=== PATIENT | male | born 1960 | race Caucasian/White ===

== ENCOUNTER 2024-01-14 13:11 | Outpatient (CLI) | payer MEDICARE, OTHER, SELFPAY ==
[2024-01-14 14:52] LABS: Occult Blood,Stool Negative (Negative)
== END 2024-01-14 23:59 | disposition home or self-care (01) ==
LOC: LAB 13:12
PROVIDERS: PCP Nurse Practitioner Family; Visit Provider Nurse Practitioner Family
DX: K92.1 Melena (principal)
CPT/HCPCS: 82272; G0328

== ENCOUNTER 2024-01-15 12:35 | Outpatient (CLI) | payer MEDICARE, OTHER, SELFPAY ==
[2024-01-15 15:00] LABS: Occult Blood,Stool Negative (Negative)
== END 2024-01-15 23:59 | disposition home or self-care (01) ==
LOC: LAB 12:36
PROVIDERS: PCP Nurse Practitioner Family; Visit Provider Nurse Practitioner Family
DX: K92.1 Melena (principal)
CPT/HCPCS: 82272; G0328

== ENCOUNTER 2024-01-16 12:46 | Outpatient (CLI) | payer MEDICARE, OTHER, SELFPAY ==
[2024-01-16 15:41] LABS: Occult Blood,Stool Negative (Negative)
== END 2024-01-16 23:59 | disposition home or self-care (01) ==
LOC: LAB.DROPOF 12:48
PROVIDERS: PCP Nurse Practitioner Family; Visit Provider Nurse Practitioner Family
DX: K92.1 Melena (principal)
CPT/HCPCS: 82272; G0328

== ENCOUNTER 2024-01-30 08:47 | Outpatient (POV) | payer MEDICARE, OTHER, SELFPAY ==
--- NOTE | 2024-01-30 09:24 | EXP.PAIN.OV ---
HPI Data of Consult Patient: new to practice Consult date: 01/30/24 Requesting Physician: Pippa Hernandez APRN Primary Care Provider: Pippa Pinto APRN Consult Narrative Reason for consult: Right knee pain, bilateral shoulder pain, neck pain, low back pain History of present illness: Mr. Grimes is a 63 year old male who presents today as a new patient. He is a referral from Pippa cruz office. Today he rates his pain a 5 out of 10. Patient states he has pain throughout multiple areas that has been going on for years and progressively worsened. Patient does state that he describes this pain from a aching, throbbing sensation to a burning depending on area. He does state that he previously was seeing a pain management in [place] where they did do imaging as well as injections such as RFA's and that these were helping. Patient states that he has not been to this office for about a year due to the fact that he moved to [place]. Patient does state that he has had multiple surgeries including a left shoulder scope, right knee scope, left knee replacement and bilateral elbow ulnar nerve surgery. Patient does state overall he would say his low back and hip pain with burning into his upper left thigh is what is more problematic currently. He does state this pain interferes with his ability perform activities of daily living such as cooking and cleaning. He states he has tried oral medications along with heat and ice and topicals with minimal relief. Patient was previously prescribed trazodone and gabapentin and he states that the gabapentin did seem to help some. Patient states that he was diagnosed with fibromyalgia and put on Savella which she feels like has helped some but did cause sweating. He has also had a kyphoplasty procedure in the past due to compression fracture. Patient has tried physical therapy and states it did not really seem to do much change overall. He states he noticed better improvement with the physical therapy and times for recovery from surgery. Patient is very active and does at home stretching exercise for longer than 12 weeks with minimal changes. He does state that he also walks daily 2 miles.Patient is not currently on any scheduled medications. His Buck has been reviewed and is appropriate. CC: Pippa Hernandez APRN [facility] Disclaimer: The information contained in this section may have been updated after the patient was seen, as this information can be updated by other users. Medical History (Updated 01/30/24 @ 11:15 by Pippa Hernandez APRN) High cholesterol High glucose Hypertension Cholecystectomy planned Elbow injury Vasectomy planned Broken back Surgical History (Updated 01/07/24 @ 10:56 by Leigh Diaz MA) Total knee replacement status H/O gastric bypass Family History (Updated 01/07/24 @ 10:57 by Leigh Diaz MA) Sister Cancer Father Cancer Grandfather Cancer Mother Hypertension Other Diabetes Thyroid disorder Social History (Updated 01/07/24 @ 10:58 by Leigh Diaz MA) Smoking Status: Former smoker alcohol intake: never substance use type: denies use current occupational status: retired Travel in the last 8 weeks: None Review of Systems Review of Systems Review of systems:: pertinent systems reviewed and negative unless documented below Review of systems (narrative): Review of Systems: General: No recent weight changes, no fever, no sleep disturbances Respiratory: No cough, no shortness of air, no recurring pulmonary infections Cardiovascular/peripheral vascular: No chest pain, no palpitations, no edema, no shortness of breath Gastrointestinal: No new onset incontinence, normal bowel movements reported Genitourinary: No new onset incontinence Musculoskeletal: Neck pain, low back pain, bilateral hip pain, shoulder pain, right knee pain Psychiatric: [Normal mood/affect] Neurological: [Denies weakness in extremities], [denies balance issues] Meds Home Medications and Allergies Home Medications ?Medication ?Instructions ?Recorded ?Confirmed ?Type aspirin 81 mg tablet,delayed 81 mg PO DAILY 01/07/24 01/30/24 History release (Adult Aspirin Regimen) diclofenac sodium 1 % topical gel 1 ea topical DIRECTED 01/07/24 01/30/24 History Arthritis, fybromyalga finasteride 5 mg tablet 5 mg PO DAILY enlarged prostrate 01/07/24 01/30/24 History mecobalamin (vitamin B12) 1,000 1,000 mcg PO DAILY 01/07/24 01/30/24 History mcg chewable tablet (B12 Active) metoprolol succinate 50 mg 50 mg PO DAILY High Blood Pressure 01/07/24 01/30/24 History tablet,extended release 24 hr milnacipran 50 mg tablet (Savella) 50 mg PO BID Fybromyalgia 01/07/24 01/30/24 History pantoprazole 40 mg tablet,delayed 80 mg PO BID Acid Reflux 01/07/24 01/30/24 History release tamsulosin 0.4 mg capsule 0.8 mg PO BID treat enlarged 01/07/24 01/30/24 History prostrate New Prescriptions to Start Prescriptions: Allergies Allergy/AdvReac Type Severity Reaction Status Date / Time No Known Allergies Allergy Verified 01/07/24 10:46 Objective Narrative: Physical Exam: General: Alert and oriented x3, no acute distress, pleasant and cooperative Lungs: Respirations even and unlabored, symmetrical chest expansion Eyes: PERRL Musculoskeletal: Flexion and extension of lumbar [spine] somewhat guarded secondary to pain, [antalgic gait noted] point tenderness along bilateral SIs with positive bilateral Beni's, Adri's, Gaenslen's, compression and distraction exam Neurological: Speech clear, no gross sensory deficit Assessment and Plan *Assessment and plan (1) Neck pain: Status: Acute Category: Medical Code(s): M54.2 - Cervicalgia (2) Cervical radiculopathy: Status: Acute Category: Medical Code(s): M54.12 - Radiculopathy, cervical region (3) Bilateral shoulder pain: Status: Acute Category: Medical Code(s): M25.511 - Pain in right shoulder; M25.512 - Pain in left shoulder (4) Bilateral sacroiliitis: Status: Acute Category: Medical Code(s): M46.1 - Sacroiliitis, not elsewhere classified (5) Right knee pain: Status: Acute Category: Medical Code(s): M25.561 - Pain in right knee Plan Patient is experiencing significant pain throughout his low back and bilateral hips with limited range of motion of his lumbar spine. Patient did have point tenderness along his bilateral SIs and a positive bilateral Beni's, Adri's, Gaenslen's, compression and distraction exam. I did discuss with the patient that I do believe he would benefit from bilateral SI injections. Risk and benefits were discussed with the patient and he would like to proceed forward with this plan of care. Patient has tried and failed conservative therapy including continued at home stretching exercise for longer than 12 weeks. Patient will be scheduled for bilateral SI injections. I did also discuss with the patient that we will start him on pregabalin 50 mg at bedtime and provide a 2-week supply of this medication. Patient was counseled that it has been recommended for fibromyalgia to use pregabalin over gabapentin and often the combination with duloxetine is beneficial. We will follow-up with this at future visits. Patient has been instructed to contact the clinic with any concerns before the next appointment. Dr. Villafuerte has reviewed this note and agrees with this plan of care. This note was dictated using voice recognition software and make contain errors or omissions. All injections are used with Lidocaine or Bupivacaine and Depo Medrol.
[2024-01-30 10:01] VITALS: BP 111/76; PULSE 87; RESP 18; O2SAT 96; BMI 40.6
== END 2024-01-30 23:59 | disposition home or self-care (01) ==
PROVIDERS: PCP Nurse Practitioner Family; Visit Provider Nurse Practitioner Family
DX: M54.2 Cervicalgia (principal); M54.12 Radiculopathy, cervical region; M25.511 Pain in right shoulder; M25.512 Pain in left shoulder; M46.1 Sacroiliitis, not elsewhere classified; M25.561 Pain in right knee; Z73.89 Other problems related to life management difficulty; Z96.652 Presence of left artificial knee joint
CPT/HCPCS: 99202; G0463

== ENCOUNTER 2024-02-26 09:27 | Day surgery (SDC) | payer MEDICARE, OTHER, SELFPAY ==
[2024-02-26 10:02] VITALS: BP 119/76; PULSE 60; RESP 16; O2SAT 97; BMI 41.3
[2024-02-26] MEDS: BUPIVACAINE 0.25% 10ML INJ 25 MG IJ (10:15)
[2024-02-26 10:16] VITALS: BP 125/82; PULSE 90; RESP 18; O2SAT 97
[2024-02-26] MEDS: methylPREDNISolone ACETATE 80MG/ML VIAL 80 MG (10:16)
[2024-02-26] MEDS: LIDOCAINE 1% 5ML PF VIAL 5 ML (10:16)
[2024-02-26 10:17] VITALS: BP 125/82; PULSE 90; RESP 18; O2SAT 97
--- NOTE | 2024-02-26 10:22 | P.PCN_ITS ---
Procedure Date: 02/26/24 Time: 10:10 Anesthesiologist:: Kade Snow CRNA Complications:: None Pre-procedure Diagnosis:: Bilateral sacroiliitis Post-procedure Diagnosis:: Same. Indications for Procedure:: Patient is a very pleasant 63-year-old male who comes our clinic today for bilateral sacroiliac joint injection of cortisone and local anesthetic. Patient describes low lumbar back pain off the midline bilaterally. Bilateral posterior hip pain. Difficulty transitioning from sitting to standing. He rates his pain 8/10. Procedure Details:: Procedure: Bilateral sacroiliac joint injections under fluoroscopy Informed consent was obtained and the risks and benefits of the procedure were explained to the patient.~ The patient was taken to the procedure room and noninvasive monitors were placed including a noninvasive blood pressure cuff and pulse oximeter.~ The patient was placed prone on the procedure table. Both hips were cleansed using Betadine as a cleansing solution. C-arm fluoroscopy was used to view the right sacroiliac joint.~ The skin and subcutaneous tissues were anesthetized using lidocaine 1.5% and a 25-gauge needle.~ After this, a 22-gauge spinal needle was inserted under fluoroscopic guidance into the inferior aspect of the right sacroiliac joint.~ Omnipaque dye was injected and good spread was seen throughout the joint.~ After this, approximately 5 mL of bupivacaine, 0.25% and Depo-Medrol, 40 mg was incrementally injected into the right sacroiliac joint. We then moved to the left sacroiliac joint.~ The skin and subcutaneous tissues were anesthetized using lidocaine 1.5% and a 25-gauge needle.~ After this, a 22- gauge spinal needle was inserted under fluoroscopic guidance into the inferior aspect of the left sacroiliac joint.~ Omnipaque dye was injected and good spread was seen throughout the joint. After this, approximately 5 mL of bupivacaine, 0.25% and Depo-Medrol, 40 mg was incrementally injected into the left sacroiliac joint.~ The patient tolerated the procedure well with no complications. The patient was observed in the Pain Clinic and then was discharged home neurologically intact. Plan and Disposition:: Patient was discharged without incident.
[2024-02-26 10:28] VITALS: BP 126/80; PULSE 71; RESP 16; O2SAT 96
== END 2024-02-26 10:28 | disposition home or self-care (01) ==
PROVIDERS: PCP Nurse Practitioner Family; Visit Provider Nurse Anesthetist, Certified Registered
DX: M46.1 Sacroiliitis, not elsewhere classified (principal)
CPT/HCPCS: 27096; G0260; J1010

== ENCOUNTER 2024-03-12 14:19 | Outpatient (POV) | payer MEDICARE, OTHER, SELFPAY ==
[2024-03-12 14:34] VITALS: BP 147/80; PULSE 78; RESP 16; O2SAT 96; BMI 40.6
--- NOTE | 2024-03-12 14:52 | EXP.PAIN.SOA ---
[facility] Disclaimer: The information contained in this section may have been updated after the patient was seen, as this information can be updated by other users. Medical History High cholesterol High glucose Hypertension Cholecystectomy planned Elbow injury Vasectomy planned Broken back Surgical History Total knee replacement status H/O gastric bypass Family History Sister Cancer Father Cancer Grandfather Cancer Mother Hypertension Other Diabetes Thyroid disorder Social History Smoking Status: Former smoker alcohol intake: never substance use type: denies use current occupational status: other Travel in the last 8 weeks: None PM Subjective & Objective Subjective Subjective:: Patient is a pleasant 63-year-old male who presents today for follow-up of bilateral SI injections on 02/26/2024. He does rate that he had at least 80% improvement and that it is worked wonderful up until about the last couple of days. He does state the pain is still very manageable and only rates it a 2 out of 10. He states that he does walk on a regular basis and by the time he makes the 1 mile cassie he does start to feel a little bit of that old pain sensation. Patient denies any new trauma or injury. Patient at our last visit was prescribed pregabalin 50 mg at bedtime. He does state that this did seem to help however he was on much higher dosages with his gabapentin. He is asking if we can make any additional adjustments. His Buck has been reviewed and is appropriate. Review of Systems: General: No recent weight changes, no fever, no sleep disturbances Respiratory: No cough, no shortness of air, no recurring pulmonary infections Cardiovascular/peripheral vascular: No chest pain, no palpitations, no edema, no shortness of breath Gastrointestinal: No new onset incontinence, normal bowel movements reported Genitourinary: No new onset incontinence Musculoskeletal: Low back pain Psychiatric: [Normal mood/affect] Neurological: [Denies weakness in extremities], [denies balance issues] Pain at rest (0-10 scale): 2 Objective Objective:: Physical Exam: General: Alert and oriented x3, no acute distress, pleasant and cooperative Lungs: Respirations even and unlabored, symmetrical chest expansion Eyes: PERRL Musculoskeletal: Flexion and extension of lumbar [spine] somewhat guarded secondary to pain, [antalgic gait noted] Neurological: Speech clear, no gross sensory deficit Has patient had previous pain injection?: Yes Percent improvement in pain since last injection: 80% Conservative treatment options previously tried: Home exercise plan Length of treatment: Longer than 12 weeks Meds Home Medications and Allergies Home Medications ?Medication ?Instructions ?Recorded ?Confirmed ?Type aspirin 81 mg tablet,delayed 81 mg PO DAILY 01/07/24 03/12/24 History release (Adult Aspirin Regimen) diclofenac sodium 1 % topical gel 1 ea topical DIRECTED 01/07/24 03/12/24 History Arthritis, fybromyalga finasteride 5 mg tablet 5 mg PO DAILY enlarged prostrate 01/07/24 03/12/24 History mecobalamin (vitamin B12) 1,000 1,000 mcg PO DAILY 01/07/24 03/12/24 History mcg chewable tablet (B12 Active) metoprolol succinate 50 mg 50 mg PO DAILY High Blood Pressure 01/07/24 03/12/24 History tablet,extended release 24 hr milnacipran 50 mg tablet (Savella) 50 mg PO BID Fybromyalgia 01/07/24 03/12/24 History pantoprazole 40 mg tablet,delayed 80 mg PO BID Acid Reflux 01/07/24 03/12/24 History release tamsulosin 0.4 mg capsule 0.8 mg PO BID treat enlarged 01/07/24 03/12/24 History prostrate pregabalin 50 mg capsule 50 mg PO HS #14 caps 01/30/24 03/12/24 Rx pregabalin 50 mg capsule 50 mg PO HS #30 caps 02/11/24 03/12/24 Rx New Prescriptions to Start Prescriptions: Allergies Allergy/AdvReac Type Severity Reaction Status Date / Time No Known Allergies Allergy Verified 01/07/24 10:46 Assessment and Plan *Assessment and plan (1) Bilateral sacroiliitis: Status: Acute Category: Medical Code(s): M46.1 - Sacroiliitis, not elsewhere classified Plan Patient has had significant improvement following his SI injections and does not require any additional injection therapy at this time. Patient will return to clinic in 6 weeks for reevaluation of symptoms and plan of care. I will change his pregabalin to 75 mg 3 times daily and provide a 6-week supply of this medication. Patient will return to clinic at that time. Patient has been instructed to contact the clinic with any concerns before the next appointment. Dr. Villafuerte has reviewed this note and agrees with this plan of care. This note was dictated using voice recognition software and make contain errors or omissions. All injections are used with Lidocaine, Bupivacaine and Depo Medrol. Occasionally urine drug screen is needed to verify patient's compliance with our office pain contract. This is ordered based off specific treatments related to chronic pain with the potential to abuse certain medications.
== END 2024-03-12 23:59 | disposition home or self-care (01) ==
PROVIDERS: PCP Nurse Practitioner Family; Visit Provider Nurse Practitioner Family
DX: M46.1 Sacroiliitis, not elsewhere classified (principal); Z87.891 Personal history of nicotine dependence; Z96.659 Presence of unspecified artificial knee joint
CPT/HCPCS: 99212; G0463

== ENCOUNTER 2024-04-25 14:30 | Outpatient (POV) | payer MEDICARE, OTHER, SELFPAY ==
[2024-04-25 14:34] VITALS: BP 124/76; PULSE 87; RESP 16; O2SAT 96; BMI 42.8
--- NOTE | 2024-04-25 15:22 | EXP.PAIN.SOA ---
[facility] Disclaimer: The information contained in this section may have been updated after the patient was seen, as this information can be updated by other users. Medical History High cholesterol High glucose Hypertension Cholecystectomy planned Elbow injury Vasectomy planned Broken back Surgical History Total knee replacement status H/O gastric bypass Family History Sister Cancer Father Cancer Grandfather Cancer Mother Hypertension Other Diabetes Thyroid disorder Social History Smoking Status: Former smoker alcohol intake: never substance use type: denies use current occupational status: other Travel in the last 8 weeks: None Have you lived/traveled outside [place] in past 30 days?: No Contact w/someone who lives/traveled outside US past 30 days?: No Exposure to someone with infectious disease in past 14 days?: No Do you have a fever (greater than 100.4 F or 38 C)?: No Have you tested positive for COVID-19: No Exposed to someone with COVID-19 in past 14 days?: No Do you have a sore throat?: No Do you have a cough?: No Do you have any weakness?: No Do you have any diarrhea?: No Are you experiencing any unusual bleeding?: No Do you have any muscle aches/pain?: No Do you have any abdominal pain?: No Are you experiencing loss of taste or smell?: No PM Subjective & Objective Subjective Subjective:: Patient is a pleasant 63-year-old male who presents today for medication refill and follow-up. Today he rates his pain a 4 out of 10. He denies any new or injury. He does state that he is still doing overall really well from his bilateral SI injections that he had 23 February. He states that he has noticed a little bit more pain when he is up for prolonged times or sitting for too long however overall it is still very manageable. He does state that the pregabalin at 75 mg 3 times a day has significantly helped his overall symptoms. He states that this is working well and he can really tell a difference. His Buck has been reviewed and is appropriate. Review of Systems: General: No recent weight changes, no fever, no sleep disturbances Respiratory: No cough, no shortness of air, no recurring pulmonary infections Cardiovascular/peripheral vascular: No chest pain, no palpitations, no edema, no shortness of breath Gastrointestinal: No new onset incontinence, normal bowel movements reported Genitourinary: No new onset incontinence Musculoskeletal: Low back pain Psychiatric: [Normal mood/affect] Neurological: [Denies weakness in extremities], [denies balance issues] Pain at rest (0-10 scale): 4 Objective Objective:: Physical Exam: General: Alert and oriented x3, no acute distress, pleasant and cooperative Lungs: Respirations even and unlabored, symmetrical chest expansion Eyes: PERRL Musculoskeletal: Flexion and extension of lumbar [spine] somewhat guarded secondary to pain, [antalgic gait noted] Neurological: Speech clear, no gross sensory deficit Has patient had previous pain injection?: No Conservative treatment options previously tried: Home exercise plan Length of treatment: Longer than 12 weeks Meds Home Medications and Allergies Home Medications ?Medication ?Instructions ?Recorded ?Confirmed ?Type aspirin 81 mg tablet,delayed 81 mg PO DAILY 01/07/24 04/25/24 History release (Adult Aspirin Regimen) diclofenac sodium 1 % topical gel 1 ea topical DIRECTED 01/07/24 04/25/24 History Arthritis, fybromyalga finasteride 5 mg tablet 5 mg PO DAILY enlarged prostrate 01/07/24 04/25/24 History mecobalamin (vitamin B12) 1,000 1,000 mcg PO DAILY 01/07/24 04/25/24 History mcg chewable tablet (B12 Active) metoprolol succinate 50 mg 50 mg PO DAILY High Blood Pressure 01/07/24 04/25/24 History tablet,extended release 24 hr milnacipran 50 mg tablet (Savella) 50 mg PO BID Fybromyalgia 01/07/24 04/25/24 History pantoprazole 40 mg tablet,delayed 80 mg PO BID Acid Reflux 01/07/24 04/25/24 History release tamsulosin 0.4 mg capsule 0.8 mg PO BID treat enlarged 01/07/24 04/25/24 History prostrate pregabalin 75 mg capsule (Lyrica) 75 mg PO TID #135 caps 03/12/24 04/25/24 Rx sucralfate 100 mg/mL oral 10 ml PO DAILY 04/08/24 04/25/24 History suspension New Prescriptions to Start Prescriptions: Allergies Allergy/AdvReac Type Severity Reaction Status Date / Time No Known Allergies Allergy Verified 04/08/24 11:00 Assessment and Plan *Assessment and plan (1) Bilateral sacroiliitis: Status: Acute Category: Medical Code(s): M46.1 - Sacroiliitis, not elsewhere classified Plan Patient has continued to do well and does not require any additional injection therapy at this time. I will refill his pregabalin and provide a 3-month supply of this medication. Patient will return to clinic in 3 months for reevaluation of symptoms and plan of care. Patient has been instructed to contact the clinic with any concerns before the next appointment. Dr. Villafuerte has reviewed this note and agrees with this plan of care. This note was dictated using voice recognition software and make contain errors or omissions. All injections are used with Lidocaine, Bupivacaine and Depo Medrol. Occasionally urine drug screen is needed to verify patient's compliance with our office pain contract. This is ordered based off specific treatments related to chronic pain with the potential to abuse certain medications.
== END 2024-04-25 23:59 | disposition home or self-care (01) ==
PROVIDERS: PCP Nurse Practitioner Family; Visit Provider Nurse Practitioner Family
DX: M46.1 Sacroiliitis, not elsewhere classified (principal); Z87.891 Personal history of nicotine dependence
CPT/HCPCS: 99212; G0463

== ENCOUNTER 2024-07-23 09:32 | Outpatient (POV) | payer MEDICARE, OTHER, SELFPAY ==
--- OUTSIDE RECORDS SUMMARY | 2024-07-23 09:37 | XMS_ITS | Continuity of Care Document ---
Author Organization [facility] Phone Care Team Providers Care Stitching Machine Feeder Or Offbearer Name Role Phone SARA BARFIELD Admitting SARA BARFIELD Primary Attending SARA BARFIELD Unavailable LILIA WALTON Primary Care ALLERGIES AND ADVERSE REACTIONS ALLERGIES AND ADVERSE REACTIONS Code System Allergy Substance Adverse Reaction Date Reaction (Severity) Comment Status Reported By Updated By [id number] RXNorm MIRAPEX Adverse reaction to substance Not Specified active [id number] on November 27, 2023 2:23:16 PM [facility] MEDICATIONS HOME MEDICATIONS Status RXNORM NDC Medication Dose Route Frequency Dates Comments Reported By Updated By Drug Treatment Unknown DISCHARGE MEDICATIONS Status RXNORM NDC Medication Dose Route Frequency Dates Comments Physician Updated By No Discharge Medication Info rmation Available INPATIENT MEDICATIONS Status RXNORM NDC Medication Dose Route Frequency Rat e Quantity Dates Comments Physician Updated By No Inpatient Medication Info rmation Available SOCIAL HISTORY SOCIAL HISTORY SNOMED-CT Social History Element Description Effective Dates Offered Cessation Comment UpdatedBy [id number] Smoking Status Unknown If Ever Smoked SOCIAL HISTORY - Gender Sex: Male SOCIAL HISTORY - Status : status i nformation is not available Intention in Next Year: intention information is not available SOCIAL HISTORY - Sexual Behavior Sexual Orientation Gender Identity SNOMED-CT Description SNO MED -CT Description Activity Level No of Partners Partner Type UpdatedBy Information is not available HEALTH CONCERNS Problems Concern Status Health Concern problem infor mation not available. Smoking Status Status Years Used Consumed packs p er day Health Concern smoking histo ry information not available. Family History Concern Status Health Concern family histor y information not available. ENCOUNTERS ENCOUNTER INFORMATION Reason for Visit M25.511 PAIN RT SHOU LDER Admission May 16, 2024 6:58:[address] [id number] Discharge May 24, 2024 4:59:00 AM UTC DIS CHARGED TO HOME OR SELF CARE ENCOUNTER DIAGNOSES Notes information is not abbie ilable. Code System Diagnosis Onset Date Diagnosis information is not available. ABSTRACT DIAGNOSES Code System Diagnosis Updated By M25.511 ICD10 PAIN IN RIGHT SHOULDER [id number] on May 26, 2024 6:59:07 PM UTC M25.511 ICD10 PAIN IN RIGHT SHOULDER [id number] on May 26, 2024 6:59:07 PM UTC CARE TEAM Care Stitching Machine Feeder Or Offbearer Role SARA BARFIELD Admitting SARA BARFIELD Primary Attending SARA BARFIELD Referring LILIA WALTON Primary Care CARE TEAM CARE program counselor Role on Team Status Start Date End Date Update d By ANTON HASKINS APRN PCP normal May 16, 2024 6:59:49 PM UTC May 16, 2024 5:00:00 AM UTC [id number] on May 16, 2024 6:59:49 PM UTC NO FAMILY PHYSICIAN PCP normal May 12, 2024 3:35:00 PM UTC May 16, 2024 6:59:49 PM UTC [id number] on May 16, 2024 6:59:49 PM UTC CAROLYNE RUIZ MD Referring normal May 12, 2024 3:35:00 PM UTC May 16, 2024 5:00:00 AM UTC [id number] on May 16, 2024 6:59:49 PM UTC CAROLYNE RUIZ MD Attending normal May 12, 2024 3:35:00 PM UTC May 16, 2024 5:00:00 AM UTC [id number] on May 16, 2024 6:59:49 PM UTC CAROLYNE RUIZ MD Admitting normal May 12, 2024 3:35:00 PM UTC May 16, 2024 5:00:00 AM UTC [id number] on May 16, 2024 6:59:49 PM UTC
--- OUTSIDE RECORDS SUMMARY | 2024-07-23 09:37 | XMS_ITS | Continuity of Care Document ---
Author Organization [facility] Phone Care Team Providers Care Fruit Raiser Name Role Phone SARA BARFIELD Unavailable LILIA WALTON Primary Care SARA BARFIELD Admitting SARA BARFIELD Primary Attending ALLERGIES AND ADVERSE REACTIONS ALLERGIES AND ADVERSE REACTIONS Code System Allergy Substance Adverse Reaction Date Reaction (Severity) Comment Status Rep[place] By [place] [id number] RXNorm MIRAPEX Adverse reaction to substance Not Specified active [id number] on November 27, 2023 2:23:16 PM [facility] HOME MEDICATIONS Status RXNORM NDC Medication [...] Description Effective Dates Offered Cessation Comment UpdatedBy [id number] Smoking Status Unknown If Ever Smoked SOCIAL [...] M25.511 PAIN RT SHOU LDER Admission May 28, 2024 8:32:00 AM UTC [facility] [address] [id number] Discharge June 24, 2024 3:59:00 AM UTC DIS CHARGED TO HOME OR SELF CARE ENCOUNTER DIAGNOSES Notes information is not abbie ilable. Code System Diagnosis Onset Date Diagnosis information is not available. 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 Role on Team Status Start Date End Date Update d By CAROLYNE RUIZ MD Referring normal May 25 5:06:09 AM [facility] May 28, 2024 5:00:00 AM [facility] [id number] on May 25, 2024 5:06:09 AM [facility] CAROLYNE RUIZ MD Attending normal May 25 5:06:09 AM [facility] May 28, 2024 5:00:00 AM [place] [id number] on May 25, 2024 5:06:09 AM [facility] CAROLYNE RUIZ MD Admitting normal May 25 5:06:09 AM [facility] May 28, 2024 5:00:00 AM [place] [id number] on May 25, 2024 5:06:09 AM [facility] ANTON HASKINS APRN PCP normal May 24, 2024 8:32:15 AM [place] May 28, 2024 5:00:00 AM [place] [id number] on May 25, 2024 5:06:09 AM [facility]
--- OUTSIDE RECORDS SUMMARY | 2024-07-23 09:38 | XMS_ITS | Continuity of Care Document ---
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 It does not include entries that were removed or entered in error. Problem Status Onset Date Problem Type Date of Resolution Comments Source Benign essential hypertension Active Condition PSYCHIATRIC Benign prostatic hyperplasia Active Condition PSYCHIATRIC Chronic low back pain Active Condition PSYCHIATRIC Exposure to potentially hazardous substance Active Condition [facility] Fibromyalgia Active Condition PSYCHIATRIC Gastroesophageal reflux disease without esophagitis Active Condition [facility] Hyperlipidemia Active Condition [facility] Pain of right shoulder joint Active Condition PSYCHIATRIC Diagnosis: ICD-10-CM H43.813 Vitreous degeneration, bilateral Active Diagnosis PSYCHIATRIC Diagnosis: ICD-10-CM Z65.8 Oth problems related to psychosocial circumstances Active Diagnosis PSYCHIATRIC Diagnosis: ICD-10-CM I10 Essential (primary) hypertension Active Diagnosis PSYCHIATRIC Diagnosis: ICD-10-CM Z77.29 Contact with and exposure to other hazardous substances Active Diagnosis [facility] Medications Combined list of outpatient medications from [facility] and [facility] facilities.Medications provided include 1) outpatient medications from the last 15 months, and 2) patient-reported medications. Medication Details Route Status Patient Instructions Prescription Expires Prescription Number Last Dispense Date Ordering Provider Order Date Order Qty Source ASPIRIN 81MG TAB,EC TAKE ONE TABLET BY MOUTH DAILY FOR HEART ORAL ACTIVE 05/03/2025 [id number] REYNALDO BARFIELD UKA S 2024 90 [place] [facility] CLENPIQ (sodium picosulfate /magnesium oxide/citri c acid), 10-3.5/175, SOLUTION, ORAL, [employer], 350 ml BOTTLE Active [id number] 4 2023 350 Pharmac y Data Transac tion Service Facilit y CYANOCOBALA MIN 1000MCG TAB TAKE ONE TABLET BY MOUTH DAILY ORAL ACTIVE REYNALDO BARFIELD S 2024 [place] [facility] DICLOFENAC NA 1% GEL,TOP APPLY 2 GRAM STRIP TO AFFECTED AREA EVERY 6 HOURS NEEDED FOR PAIN TOPICA L ACTIVE 05/03/2025 [id number] REYNALDO BARFIELD S 2024 200 [place] [facility] FINASTERIDE (FINASTERID E), 5 MG, TABLET, ORAL, [employer], 90 ea. BOTTLE Cancele d [id number] : 2023 0 Pharmac y Data Transac tion Service Facilit y FINASTERIDE (FINASTERID E), 5 MG, TABLET, ORAL, [employer], 90 ea. BOTTLE Active [id number] 4 2023 30 Pharmac y Data Transac tion Service Facilit y FINASTERIDE (FINASTERID E), 5 MG, TABLET, ORAL, [employer], 90 ea. BOTTLE Active [id number] 4 2023 90 Pharmac y Data Transac tion Service Facilit y FINASTERIDE 5MG TAB TAKE ONE TABLET BY MOUTH DAILY FOR PROSTATE ORAL ACTIVE 05/03/2025 [id number] REYNALDO BARFIELD S 2024 90 [place] [facility] GABAPENTIN (gabapentin ), 800 MG, TABLET, ORAL, [employer], 500 ea. BOTTLE Active [id number] 2023 90 Pharmac y Data Transac tion Service Facilit y GLUCOSAMINE CAP/TAB TAKE 1 CAP/TAB BY MOUTH DAILY ORAL ACTIVE REYNALDO BARFIELD S 2024 [place] [facility] METOPROLOL SUCCINATE (metoprolol succinate), 50 MG, TAB ER 24H, ORAL, [facility] 1000 ea. BOTTLE Active [id number] 2023 90 Pharmac y Data Transac tion Service Facilit y METOPROLOL SUCCINATE 100MG TAB,SA TAKE ONE-HALF TABLET BY MOUTH DAILY FOR BLOOD PRESSURE ORAL SUSPEND ED 05/03/2025 [id number] REYNALDO BARFIELD S 2024 45 [place] [facility] MILNACIPRAN HCL 50MG TAB TAKE ONE TABLET BY MOUTH TWICE A DAY ORAL ACTIVE REYNALDO BARFIELD S 2024 [place] [facility] MULTIVITAMI NS CAP/TAB TAKE 1 CAP/TAB BY MOUTH DAILY ORAL ACTIVE REYNALDO BARFIELD S 2024 [place] [facility] PANTOPRAZOL E NA 40MG TAB,EC TAKE ONE TABLET BY MOUTH ONCE A DAY 30 MINUTES BEFORE A MEAL FOR HEARTBUR N -TAKE ON AN EMPTY STOMACH. ORAL ACTIVE 05/03/2025 [id number] 5 REYNALDO BARFIELD S 2024 90 [place] [facility] PANTOPRAZOL E SODIUM (pantoprazo le sodium), 40 MG, TABLET DR, ORAL, Active [employer] 1000 ea. BOTTLE Cancele d [id number] : 2023 0 Pharmac y Data Transac tion Service Facilit y PANTOPRAZOL E SODIUM (pantoprazo le sodium), 40 MG, TABLET DR, ORAL, Active [employer] 1000 ea. BOTTLE Active [id number] 4 2023 180 Pharmac y Data Transac tion Service Facilit y PANTOPRAZOL E SODIUM (pantoprazo le sodium), 40 MG, TABLET DR, ORAL, [employer] 1000 ea. BOTTLE Active [id number] 2023 180 Pharmac y Data Transac tion Service Facilit y PREGABALIN 75MG CAP,ORAL TAKE ONE CAPSULE BY MOUTH THREE TIMES A DAY FOR NERVE PAIN ORAL ACTIVE 11/02/2024 [id number] 5 REYNALDO BARFIELD S 2024 90 [place] [facility] ROSUVASTATI N CA 40MG TAB TAKE ONE-HALF TABLET BY MOUTH AT BEDTIME FOR CHOLESTE ROL ORAL SUSPEND ED 05/03/2025 [id number] REYNALDO BARFIELD S 2024 45 [place] [facility] ROSUVASTATI N CALCIUM (rosuvastat in calcium), 20 MG, TABLET, ORAL, [employer], 90 ea. BOTTLE Active [id number] 2023 90 Pharmac y Data Transac tion Service Facilit y ROSUVASTATI N CALCIUM (rosuvastat in calcium), 20 MG, TABLET, ORAL, [employer] 90 ea. BOTTLE Active [id number] 4 2023 90 Pharmac y Data Transac tion Service Facilit y SAVELLA (MILNACIPRA N HCL), 50 MG, TABLET, ORAL, [employer], 60 ea. BOTTLE Active [id number] 4 2023 180 Pharmac y Data Transac tion Service Facilit y SUCRALFATE 1GM TAB TAKE ONE TABLET BY MOUTH TWICE A DAY NEEDED FOR STOMACH ORAL ACTIVE 07/31/2024 [id number] REYNALDO BARFIELD S 2024 180 [place] [facility] TAMSULOSIN HCL (TAMSULOSIN HCL), 0.4 MG, CAP.SR 24H, ORAL, [employer], 1000 ea. BOTTLE Cancele d [id number] : 2023 0 Pharmac y Data Transac tion Service Facilit y TAMSULOSIN HCL (TAMSULOSIN HCL), 0.4 MG, CAP.SR 24H, ORAL, [employer], 1000 ea. BOTTLE Active [id number] 4 2023 180 Pharmac y Data Transac tion Service Facilit y TAMSULOSIN HCL 0.4MG CAP TAKE TWO CAPSULES BY MOUTH EVERY EVENING FOR PROSTATE ORAL ACTIVE 05/03/2025 [id number] 5 REYNALDO BARFIELD S 2024 180 [place] [facility] TRAZODONE HCL (trazodone HCl), 100 MG, TABLET, ORAL, [employer], 1000 ea. BOTTLE Cancele d [id number] : 2023 0 Pharmac y Data Transac tion Service Facilit y TRAZODONE HCL (trazodone HCl), 100 MG, TABLET, ORAL, [employer], 1000 ea. BOTTLE Active [id number] 4 2023 90 Pharmac y Data Transac tion Service Facilit y TRAZODONE HCL (trazodone HCl), 100 MG, TABLET, ORAL, [employer], 1000 ea. BOTTLE Active [id number] 4 2023 90 Pharmac y Data Transac tion Service Facilit y Allergies, Adverse Reactions, Alerts Combined list of allergies from [facility] and [facility] facilities. It does not include entries that were removed or entered in error. Substance Category Reaction Severity Reaction type Status Date Reported Comments Source TETANUS TOXOID Propensity to adverse reactions to drug (finding) Eruption active 1 [facility] TETANUS TOXOID Propensity to adverse reactions to drug (finding) Urticaria active 2 [facility] Immunizations Combined list of available immunizations from the Department of Defense and Veterans Affairs facilities. 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 Comments Source COVID-19 (PFIZER), MRNA, LNP-S, PF, NILESH-SUCROSE, 30 MCG/0.3 ML (AGES 12+ YEARS) 7 2023 309 complet ed HISTORICA L INFORMATI ON - FROM OTHER REGISTRY, [place] [facility] RSV, RECOMBINANT, PROTEIN SUBUNIT RSVPREF3, ADJUVANT RECONSTITUTED , 0.5 ML, PF 2023 303 complet ed HISTORICA L INFORMATI ON - FROM OTHER REGISTRY, [place] [facility] INFLUENZA, SPLIT VIRUS, TRIVALENT, PF 6 2023 140 complet ed HISTORICA L INFORMATI ON - FROM OTHER REGISTRY, [place] [facility] COVID-19 (MODERNA), MRNA, LNP-S, PF, 50 MCG/0.5 ML (AGES 12+ YEARS) 6 2022 312 complet ed HISTORICA L INFORMATI ON - FROM OTHER REGISTRY, [place] [facility] INFLUENZA, SPLIT VIRUS, QUADRIVALENT, PF 5 2022 150 complet ed HISTORICA L INFORMATI ON - FROM OTHER REGISTRY, [place] [facility] RSV, RECOMBINANT, PROTEIN SUBUNIT RSVPREF3, ADJUVANT RECONSTITUTED , 0.5 ML, PF 1 2022 303 complet ed HISTORICA L INFORMATI ON - FROM OTHER REGISTRY, [place] [facility] TDAP 2 2021 115 complet ed HISTORICA L INFORMATI ON - FROM OTHER REGISTRY, [place] [facility] COVID-19 (PFIZER), MRNA, LNP-S, BIVALENT, PF, 30 MCG/0.3 ML DOSE 5 2021 300 complet ed HISTORICA L INFORMATI ON - FROM OTHER REGISTRY, [place] [facility] INFLUENZA, RECOMBINANT, QUADRIVALENT, PF 4 2021 185 complet ed HISTORICA L INFORMATI ON - FROM OTHER REGISTRY, [place] [facility] ZOSTER RECOMBINANT 2 2021 187 complet ed HISTORICA L INFORMATI ON - FROM OTHER REGISTRY, [place] [facility] zoster recombinant 2021 ZULMA, () Not Given zoster recombina nt DoD ZOSTER RECOMBINANT 1 2021 187 complet ed HISTORICA L INFORMATI ON - FROM OTHER REGISTRY, [place] [facility] COVID-19 (PFIZER), MRNA, LNP-S, PF, 30 MCG/0.3 ML DOSE, NILESH-SUCROSE (AGES 12+ YEARS) 4 2021 217 complet ed HISTORICA L INFORMATI ON - FROM OTHER REGISTRY, [place] [facility] PNEUMOCOCCAL CONJUGATE PCV20, POLYSACCHARID E [id number] CONJUGATE, ADJUVANT, PF 1 2021 216 complet ed HISTORICA L INFORMATI ON - FROM OTHER REGISTRY, [place] [facility] INFLUENZA, RECOMBINANT, QUADRIVALENT, PF 3 2021 185 complet ed HISTORICA L INFORMATI ON - [facility] OTHER REGISTRY, [place] [facility] COVID-19 (PFIZER), MRNA, LNP-S, PF, 30 MCG/0.3 ML DOSE 3 2020 208 complet ed HISTORICA L INFORMATI ON - FROM OTHER REGISTRY, [place] [facility] COVID-19 (MODERNA), MRNA, LNP-S, PF, 100 MCG/0.5ML DOSE OR 50 MCG/0.25ML DOSE 2 2020 207 complet ed HISTORICA L INFORMATI ON - FROM OTHER REGISTRY, [place] [facility] COVID-19 (MODERNA), MRNA, LNP-S, PF, 100 MCG/0.5ML DOSE OR 50 MCG/0.25ML DOSE 1 2020 207 complet ed HISTORICA L INFORMATI ON - FROM OTHER REGISTRY, [place] [facility] INFLUENZA, MDCK, QUADRIVALENT, PRESERVATIVE 2 2018 186 complet ed HISTORICA L INFORMATI ON - FROM OTHER REGISTRY, [place] [facility] HEP A-HEP B 3 2018 104 complet ed HISTORICA L INFORMATI ON - FROM OTHER REGISTRY, [place] [facility] HEP B, ADULT 2 2018 43 complet ed HISTORICA L INFORMATI ON - FROM OTHER REGISTRY, [place] [facility] HEP A-HEP B 1 2017 104 complet ed HISTORICA L INFORMATI ON - FROM OTHER REGISTRY, [place] [facility] INFLUENZA, SPLIT VIRUS, TRIVALENT, PF 1 2017 140 complet ed HISTORICA L INFORMATI ON - FROM OTHER REGISTRY, [place] [facility] DTAP 1 2017 20 complet ed HISTORICA L INFORMATI ON - FROM OTHER REGISTRY, [place] [facility] Results Combined list of recent chemistry, hematology and other laboratory results from [facility] of Defense and [facility] Affairs, ranging from 15 months to all on record, depending upon the facility. Order Name Results Value Reference Range Date Interpretation Specimen Comments Source LIPID PROFILE CHOLESTEROL [MASS/VOLUM E] IN SERUM OR PLASMA 174 mg/dL 0 - 199 05/02 Specimen Type: PLASMA Comment: Estimated Glomerular Filtration Rate (eGFR) calculated using the 2020 Chronic Kidney Disease-Epi demiology (CKD-EPI) Collaborati on creatinine equation; units of measure are mL/min/1.73 m2. Results are only valid for adults (>=18 years) whose serum creatinine is in a steady state. eGFR calculation s are not valid for patients with acute kidney injury and for patients on dialysis. Creatinine- based estimates of kidney function may also be inaccurate in patients with reduced creatinine generation due to decreased muscle mass (e.g., malnutritio n, severe hypoalbumin emia, sarcopenia, chronic neuromuscul ar disease, amputations , severe heart failure or liver disease) and in patients with increased creatinine generation due to increased muscle mass (e.g., muscle builders, anabolic steroids) or increased dietary intake. As drug clearance is proportiona l to total GFR and not GFR indexed to body surface area (BSA), in individuals with a BSA substantial ly different than 1.73 m2, drug dosing should be based on the reported eGFR value de-indexed from BSA by multiplying by the individual' s BSA and dividing by 1.73. CKD is diagnosed based on abnormaliti es of kidney structure or function, present for >3 months, with implication s for health and disease. CKD is classified and staged based on cause, eGFR and albuminuria (quantified as urine albumin to creatinine ratio). An eGFR >60 mL/min/1.73 m2 in the absence of increased urine albumin excretion or structural abnormaliti es does not represent CKD. eGFR CKD Interpretat ion (mL/min/1.7 3 m2) stage >=90 G1 Normal 60-89 G2 Mild decrease 45-59 G3A Mild to moderate decrease 30-44 G3B Moderate to severe decrease 15-29 G4 Severe decrease <15 G5 Kidney failure Vitamin B12 test may not yield results when protein level of sample is too elevated. Ordering Provider: MARILUZ BARFIELD Report Released Date/Time: May 02, 2024 01:19 PM Reporting Lab: [facility] [address] [address] Performing Lab: [facility] [address] [address] [facility] LIPID PROFILE TRIGLYCERID E [MASS/VOLUM E] IN SERUM OR PLASMA 140 mg/dL 0 - 149 05/02 Specimen Type: PLASMA Comment: Estimated Glomerular Filtration Rate (eGFR) calculated using the 2020 Chronic Kidney Disease-Epi demiology (CKD-EPI) Collaborati on creatinine equation; units of measure are mL/min/1.73 m2. Results are only valid for adults (>=18 years) whose serum creatinine is in a steady state. eGFR calculation s are not valid for patients with acute kidney injury and for patients on dialysis. Creatinine- based estimates of kidney function may also be inaccurate in patients with reduced creatinine generation due to decreased muscle mass (e.g., malnutritio n, severe hypoalbumin emia, sarcopenia, chronic neuromuscul ar disease, amputations , severe heart failure or liver disease) and in patients with increased creatinine generation due to increased muscle mass (e.g., muscle builders, anabolic steroids) or increased dietary intake. As drug clearance is proportiona l to total GFR and not GFR indexed to body surface area (BSA), in individuals with a BSA substantial ly different than 1.73 m2, drug dosing should be based on the reported eGFR value de-indexed from BSA by multiplying by the individual' s BSA and dividing by 1.73. CKD is diagnosed based on abnormaliti es of kidney structure or function, present for >3 months, with implication s for health and disease. CKD is classified and staged based on cause, eGFR and albuminuria (quantified as urine albumin to creatinine ratio). An eGFR >60 mL/min/1.73 m2 in the absence of increased urine albumin excretion or structural abnormaliti es does not represent CKD. eGFR CKD Interpretat ion (mL/min/1.7 3 m2) stage >=90 G1 Normal 60-89 G2 Mild decrease 45-59 G3A Mild to moderate decrease 30-44 G3B Moderate to severe decrease 15-29 G4 Severe decrease <15 G5 Kidney failure Vitamin B12 test may not yield results when protein level of sample is too elevated. Ordering Provider: MARILUZ BARFIELD Report Released Date/Time: May 02, 2024 01:19 PM Reporting Lab: [facility] [address] [address] Performing Lab: [facility] [address] [address] [facility] LIPID PROFILE CHOLESTEROL IN HDL [MASS/VOLUM E] IN SERUM OR PLASMA 51 mg/dL 40 - 69 05/02 Specimen Type: PLASMA Comment: Estimated Glomerular Filtration Rate (eGFR) calculated using the 2020 Chronic Kidney Disease-Epi demiology (CKD-EPI) Collaborati on creatinine equation; units of measure are mL/min/1.73 m2. Results are only valid for adults (>=18 years) whose serum creatinine is in a steady state. eGFR calculation s are not valid for patients with acute kidney injury and for patients on dialysis. Creatinine- based estimates of kidney function may also be inaccurate in patients with reduced creatinine generation due to decreased muscle mass (e.g., malnutritio n, severe hypoalbumin emia, sarcopenia, chronic neuromuscul ar disease, amputations , severe heart failure or liver disease) and in patients with increased creatinine generation due to increased muscle mass (e.g., muscle builders, anabolic steroids) or increased dietary intake. As drug clearance is proportiona l to total GFR and not GFR indexed to body surface area (BSA), in individuals with a BSA substantial ly different than 1.73 m2, drug dosing should be based on the reported eGFR value de-indexed from BSA by multiplying by the individual' s BSA and dividing by 1.73. CKD is diagnosed based on abnormaliti es of kidney structure or function, present for >3 months, with implication s for health and disease. CKD is classified and staged based on cause, eGFR and albuminuria (quantified as urine albumin to creatinine ratio). An eGFR >60 mL/min/1.73 m2 in the absence of increased urine albumin excretion or structural abnormaliti es does not represent CKD. eGFR CKD Interpretat ion (mL/min/1.7 3 m2) stage >=90 G1 Normal 60-89 G2 Mild decrease 45-59 G3A Mild to moderate decrease 30-44 G3B Moderate to severe decrease 15-29 G4 Severe decrease <15 G5 Kidney failure Vitamin B12 test may not yield results when protein level of sample is too elevated. Ordering Provider: MARILUZ BARFIELD Report Released Date/Time: May 02, 2024 01:19 PM Reporting Lab: [facility] [address] [facility] [address] Performing Lab: [facility] [address] [facility] [address] [facility] LIPID PROFILE CHOLESTEROL IN LDL [MASS/VOLUM E] IN SERUM OR PLASMA BY DIRECT ASSAY 118 mg/dL 0 - 100 05/02 H Specimen Type: PLASMA Comment: Estimated Glomerular Filtration Rate (eGFR) calculated using the 2020 Chronic Kidney Disease-Epi demiology (CKD-EPI) Collaborati on creatinine equation; units of measure are mL/min/1.73 m2. Results are only valid for adults (>=18 years) whose serum creatinine is in a steady state. eGFR calculation s are not valid for patients with acute kidney injury and for patients on dialysis. Creatinine- based estimates of kidney function may also be inaccurate in patients with reduced creatinine generation due to decreased muscle mass (e.g., malnutritio n, severe hypoalbumin emia, sarcopenia, chronic neuromuscul ar disease, amputations , severe heart failure or liver disease) and in patients with increased creatinine generation due to increased muscle mass (e.g., muscle builders, anabolic steroids) or increased dietary intake. As drug clearance is proportiona l to total GFR and not GFR indexed to body surface area (BSA), in individuals with a BSA substantial ly different than 1.73 m2, drug dosing should be based on the reported eGFR value de-indexed from BSA by multiplying by the individual' s BSA and dividing by 1.73. CKD is diagnosed based on abnormaliti es of kidney structure or function, present for >3 months, with implication s for health and disease. CKD is classified and staged based on cause, eGFR and albuminuria (quantified as urine albumin to creatinine ratio). An eGFR >60 mL/min/1.73 m2 in the absence of increased urine albumin excretion or structural abnormaliti es does not represent CKD. eGFR CKD Interpretat ion (mL/min/1.7 3 m2) stage >=90 G1 Normal 60-89 G2 Mild decrease 45-59 G3A Mild to moderate decrease 30-44 G3B Moderate to severe decrease 15-29 G4 Severe decrease <15 G5 Kidney failure Vitamin B12 test may not yield results when protein level of sample is too elevated. Ordering Provider: MARILUZ BARFIELD Report Released Date/Time: May 02, 2024 01:19 PM Reporting Lab: [address] [address] Performing Lab: [address] [address] [facility] GLYCOHEMO GLOBIN HEMOGLOBIN A1C/HEMOGLO BIN.TOTAL IN BLOOD BY HPLC 5.7 4.4 - 5.6 05/02 H Specimen Type: BLOOD Comment: [facility] guidelines for A1c interpretat ion: Glycemic control targets are based on Shared Decision Making between clinicians and patients. Criteria used to establish an A1c target recommendat ion can be found at https://www .ri.gov/jazz lityandpati entsafety/ and include the use of result accuracy and precision(C V) of the A1c tests clinicians utilize at their own sites of practice. Values obtained from A1C measurement s can vary. For typical A1C assays, a reported value of 7.0 could actually be between 6.72 and 7.28 if measured by a reference method. A reported value of 9.0 could actually be between 8.73 and 9.27. Ref: https://ngs p.org/CAPda ta.asp. The in-house [employer] D-100 analyzer has a historical CV <= 2%. Contact the laboratory for further performance characteris tics of this assay. Ordering Provider: MARILUZ BARFIELD Report Released Date/Time: May 02, 2024 01:19 PM Reporting Lab: [address] [address] Performing Lab: [address] [address] [facility] CBC/PLT LEUKOCYTES [#/VOLUME] IN BLOOD BY AUTOMATED COUNT 6.7 10*3/u L 5.0 - 10.0 05/02 Specimen Type: BLOOD No comment entered. Ordering Provider: MARILUZ BARFIELD Report Released Date/Time: May 02, 2024 01:19 PM Reporting Lab: [address] [address] Performing Lab: [phone] [place] [address] CBC/PLT ERYTHROCYTE S [#/VOLUME] IN BLOOD BY AUTOMATED COUNT 5.62 10*6/u L 4.6 - 6.2 05/02 Specimen Type: BLOOD No comment entered. Ordering Provider: MARILUZ BARFIELD Report Released Date/Time: May 02, 2024 01:19 PM Reporting Lab: [address] [address] Performing Lab: [place] [phone] [place] [address] CBC/PLT HEMOGLOBIN [MASS/VOLUM E] IN BLOOD 16.2 g/dL 14.0 - 18.0 05/02 Specimen Type: BLOOD No comment entered. Ordering Provider: MARILUZ BARFIELD Report Released Date/Time: May 02, 2024 01:19 PM Reporting Lab: [address] [address] Performing Lab: [place] [phone] [place] [address] CBC/PLT HEMATOCRIT [VOLUME FRACTION] OF BLOOD BY AUTOMATED COUNT 49.2 42.0 - 52.0 05/02 Specimen Type: BLOOD No comment entered. Ordering Provider: MARILUZ BARFIELD Report Released Date/Time: May 02, 2024 01:19 PM Reporting Lab: [address] [address] Performing Lab: [address] [address] [facility] CBC/PLT MCV [ENTITIC VOLUME] BY AUTOMATED COUNT 87.5 fL 80.0 - 94.0 05/02 Specimen Type: BLOOD No comment entered. Ordering Provider: MARILUZ BARFIELD Report Released Date/Time: May 02, 2024 01:19 PM Reporting Lab: [address] [address] Performing Lab: [phone] [place] [address] CBC/PLT MCH [ENTITIC MASS] BY AUTOMATED COUNT 28.8 pg 27.0 - 31.0 05/02 Specimen Type: BLOOD No comment entered. Ordering Provider: MARILUZ BARFIELD Report Released Date/Time: May 02, 2024 01:19 PM Reporting Lab: [address] [address] Performing Lab: [place] [phone] [place] [address] CBC/PLT MCHC [MASS/VOLUM E] BY AUTOMATED COUNT 32.9 g/dL 32.0 - 36.0 05/02 Specimen Type: BLOOD No comment entered. Ordering Provider: MARILUZ BARFIELD Report Released Date/Time: May 02, 2024 01:19 PM Reporting Lab: [place] [phone] Performing Lab: [place] [phone] [place] [address] CBC/PLT PLATELETS [#/VOLUME] IN BLOOD 209 10*3/u L 150 - 450 05/02 Specimen Type: BLOOD No comment entered. Ordering Provider: MARILUZ BARFIELD Report Released Date/Time: May 02, 2024 01:19 PM Reporting Lab: [place] [id number] Performing Lab: [place] [id number] [place] [address] CBC/PLT PLATELET MEAN VOLUME [ENTITIC VOLUME] IN BLOOD 11.8 fL 9.0 - 13.1 05/02 Specimen Type: BLOOD No comment entered. Ordering Provider: MARILUZ BARFIELD Report Released Date/Time: May 02, 2024 01:19 PM Reporting Lab: [address] [address] Performing Lab: [address] [address] [facility] CBC/PLT ERYTHROCYTE DISTRIBUTIO N WIDTH [ENTITIC VOLUME] BY AUTOMATED COUNT 13.9 11.0 - 16.0 05/02 Specimen Type: BLOOD No comment entered. Ordering Provider: MARILUZ BARFIELD Report Released Date/Time: May 02, 2024 01:19 PM Reporting Lab: [address] [address] Performing Lab: [place] [id number] [place] [address] CBC/PLT NUCLEATED ERYTHROCYTE S/100 ERYTHROCYTE S IN BLOOD 0.0 0.0 - 0.0 05/02 Specimen Type: BLOOD No comment entered. Ordering Provider: MARILUZ BARFIELD Report Released Date/Time: May 02, 2024 01:19 PM Reporting Lab: [place] [id number] Performing Lab: [place] [id number] [facility] PSA PROSTATE SPECIFIC AG [MASS/VOLUM E] IN SERUM OR PLASMA 0.343 ng/mL 0 - 3.999 05/02 Specimen Type: SERUM Comment: The National Institutes of Health (NIH) recommendat ions state: <12 ng/mL - Deficient 20 - 50 ng/mL - Optimal Levels - adequate for most people. >50 ng/mL - Increased risk of hypercalciu heather/other health problems - clinical correlation is required. These reference ranges represent clinical decision values rather than population- based reference values. Ordering Provider: MARILUZ BARFIELD Report Released Date/Time: May 02, 2024 01:19 PM Reporting Lab: [address] [phone] Performing Lab: [place] [id number] [facility] PANEL 2 PROTEIN [MASS/VOLUM E] IN SERUM OR PLASMA 7.6 g/dL 6.4 - 8.3 05/02 Specimen Type: PLASMA Comment: Estimated Glomerular Filtration Rate (eGFR) calculated using the 2020 Chronic Kidney Disease-Epi demiology (CKD-EPI) Collaborati on creatinine equation; units of measure are mL/min/1.73 m2. Results are only valid for adults (>=18 years) whose serum creatinine is in a steady state. eGFR calculation s are not valid for patients with acute kidney injury and for patients on dialysis. Creatinine- based estimates of kidney function may also be inaccurate in patients with reduced creatinine generation due to decreased muscle mass (e.g., malnutritio n, severe hypoalbumin emia, sarcopenia, chronic neuromuscul ar disease, amputations , severe heart failure or liver disease) and in patients with increased creatinine generation due to increased muscle mass (e.g., muscle builders, anabolic steroids) or increased dietary intake. As drug clearance is proportiona l to total GFR and not GFR indexed to body surface area (BSA), in individuals with a BSA substantial ly different than 1.73 m2, drug dosing should be based on the reported eGFR value de-indexed from BSA by multiplying by the individual' s BSA and dividing by 1.73. CKD is diagnosed based on abnormaliti es of kidney structure or function, present for >3 months, with implication s for health and disease. CKD is classified and staged based on cause, eGFR and albuminuria (quantified as urine albumin to creatinine ratio). An eGFR >60 mL/min/1.73 m2 in the absence of increased urine albumin excretion or structural abnormaliti es does not represent CKD. eGFR CKD Interpretat ion (mL/min/1.7 3 m2) stage >=90 G1 Normal 60-89 G2 Mild decrease 45-59 G3A Mild to moderate decrease 30-44 G3B Moderate to severe decrease 15-29 G4 Severe decrease <15 G5 Kidney failure Vitamin B12 test may not yield results when protein level of sample is too elevated. Ordering Provider: MARILUZ BARFIELD Report Released Date/Time: May 02, 2024 01:19 PM Reporting Lab: [facility] [address] [address] Performing Lab: [facility] [address] [address] [facility] PANEL 2 ALBUMIN [MASS/VOLUM E] IN SERUM OR PLASMA 4.3 g/dL 3.5 - 5.2 05/02 Specimen Type: PLASMA Comment: Estimated Glomerular Filtration Rate (eGFR) calculated using the 2020 Chronic Kidney Disease-Epi demiology (CKD-EPI) Collaborati on creatinine equation; units of measure are mL/min/1.73 m2. Results are only valid for adults (>=18 years) whose serum creatinine is in a steady state. eGFR calculation s are not valid for patients with acute kidney injury and for patients on dialysis. Creatinine- based estimates of kidney function may also be inaccurate in patients with reduced creatinine generation due to decreased muscle mass (e.g., malnutritio n, severe hypoalbumin emia, sarcopenia, chronic neuromuscul ar disease, amputations , severe heart failure or liver disease) and in patients with increased creatinine generation due to increased muscle mass (e.g., muscle builders, anabolic steroids) or increased dietary intake. As drug clearance is proportiona l to total GFR and not GFR indexed to body surface area (BSA), in individuals with a BSA substantial ly different than 1.73 m2, drug dosing should be based on the reported eGFR value de-indexed from BSA by multiplying by the individual' s BSA and dividing by 1.73. CKD is diagnosed based on abnormaliti es of kidney structure or function, present for >3 months, with implication s for health and disease. CKD is classified and staged based on cause, eGFR and albuminuria (quantified as urine albumin to creatinine ratio). An eGFR >60 mL/min/1.73 m2 in the absence of increased urine albumin excretion or structural abnormaliti es does not represent CKD. eGFR CKD Interpretat ion (mL/min/1.7 3 m2) stage >=90 G1 Normal 60-89 G2 Mild decrease 45-59 G3A Mild to moderate decrease 30-44 G3B Moderate to severe decrease 15-29 G4 Severe decrease <15 G5 Kidney failure Vitamin B12 test may not yield results when protein level of sample is too elevated. Ordering Provider: MARILUZ BARFIELD Report Released Date/Time: May 02, 2024 01:19 PM Reporting Lab: [facility] [address] [facility] [address] Performing Lab: [facility] [address] [facility] [phone] [facility] PANEL 2 BILIRUBIN.T OTAL [MASS/VOLUM E] IN SERUM OR PLASMA 0.4 mg/dL 0.2 - 1.2 05/02 Specimen Type: PLASMA Comment: Estimated Glomerular Filtration Rate (eGFR) calculated using the 2020 Chronic Kidney Disease-Epi demiology (CKD-EPI) Collaborati on creatinine equation; units of measure are mL/min/1.73 m2. Results are only valid for adults (>=18 years) whose serum creatinine is in a steady state. eGFR calculation s are not valid for patients with acute kidney injury and for patients on dialysis. Creatinine- based estimates of kidney function may also be inaccurate in patients with reduced creatinine generation due to decreased muscle mass (e.g., malnutritio n, severe hypoalbumin emia, sarcopenia, chronic neuromuscul ar disease, amputations , severe heart failure or liver disease) and in patients with increased creatinine generation due to increased muscle mass (e.g., muscle builders, anabolic steroids) or increased dietary intake. As drug clearance is proportiona l to total GFR and not GFR indexed to body surface area (BSA), in individuals with a BSA substantial ly different than 1.73 m2, drug dosing should be based on the reported eGFR value de-indexed from BSA by multiplying by the individual' s BSA and dividing by 1.73. CKD is diagnosed based on abnormaliti es of kidney structure or function, present for >3 months, with implication s for health and disease. CKD is classified and staged based on cause, eGFR and albuminuria (quantified as urine albumin to creatinine ratio). An eGFR >60 mL/min/1.73 m2 in the absence of increased urine albumin excretion or structural abnormaliti es does not represent CKD. eGFR CKD Interpretat ion (mL/min/1.7 3 m2) stage >=90 G1 Normal 60-89 G2 Mild decrease 45-59 G3A Mild to moderate decrease 30-44 G3B Moderate to severe decrease 15-29 G4 Severe decrease <15 G5 Kidney failure Vitamin B12 test may not yield results when protein level of sample is too elevated. Ordering Provider: MARILUZ BARFIELD Report Released Date/Time: May 02, 2024 01:19 PM Reporting Lab: [facility] [address] [phone] Performing Lab: [facility] [address] [address] [facility] PANEL 2 ASPARTATE AMINOTRANSF ERASE [ENZYMATIC ACTIVITY/VO LUME] IN SERUM OR PLASMA 40 U/L 5 - 34 05/02 H Specimen Type: PLASMA Comment: Estimated Glomerular Filtration Rate (eGFR) calculated using the 2020 Chronic Kidney Disease-Epi demiology (CKD-EPI) Collaborati on creatinine equation; units of measure are mL/min/1.73 m2. Results are only valid for adults (>=18 years) whose serum creatinine is in a steady state. eGFR calculation s are not valid for patients with acute kidney injury and for patients on dialysis. Creatinine- based estimates of kidney function may also be inaccurate in patients with reduced creatinine generation due to decreased muscle mass (e.g., malnutritio n, severe hypoalbumin emia, sarcopenia, chronic neuromuscul ar disease, amputations , severe heart failure or liver disease) and in patients with increased creatinine generation due to increased muscle mass (e.g., muscle builders, anabolic steroids) or increased dietary intake. As drug clearance is proportiona l to total GFR and not GFR indexed to body surface area (BSA), in individuals with a BSA substantial ly different than 1.73 m2, drug dosing should be based on the reported eGFR value de-indexed from BSA by multiplying by the individual' s BSA and dividing by 1.73. CKD is diagnosed based on abnormaliti es of kidney structure or function, present for >3 months, with implication s for health and disease. CKD is classified and staged based on cause, eGFR and albuminuria (quantified as urine albumin to creatinine ratio). An eGFR >60 mL/min/1.73 m2 in the absence of increased urine albumin excretion or structural abnormaliti es does not represent CKD. eGFR CKD Interpretat ion (mL/min/1.7 3 m2) stage >=90 G1 Normal 60-89 G2 Mild decrease 45-59 G3A Mild to moderate decrease 30-44 G3B Moderate to severe decrease 15-29 G4 Severe decrease <15 G5 Kidney failure Vitamin B12 test may not yield results when protein level of sample is too elevated. Ordering Provider: MARILUZ BARFIELD Report Released Date/Time: May 02, 2024 01:19 PM Reporting Lab: [address] [phone] Performing Lab: [address] [address] [facility] PANEL 2 ALANINE AMINOTRANSF ERASE [ENZYMATIC ACTIVITY/VO LUME] IN SERUM OR PLASMA 37 U/L 0 - 55 05/02 Specimen Type: PLASMA Comment: Estimated Glomerular Filtration Rate (eGFR) calculated using the 2020 Chronic Kidney Disease-Epi demiology (CKD-EPI) Collaborati on creatinine equation; units of measure are mL/min/1.73 m2. Results are only valid for adults (>=18 years) whose serum creatinine is in a steady state. eGFR calculation s are not valid for patients with acute kidney injury and for patients on dialysis. Creatinine- based estimates of kidney function may also be inaccurate in patients with reduced creatinine generation due to decreased muscle mass (e.g., malnutritio n, severe hypoalbumin emia, sarcopenia, chronic neuromuscul ar disease, amputations , severe heart failure or liver disease) and in patients with increased creatinine generation due to increased muscle mass (e.g., muscle builders, anabolic steroids) or increased dietary intake. As drug clearance is proportiona l to total GFR and not GFR indexed to body surface area (BSA), in individuals with a BSA substantial ly different than 1.73 m2, drug dosing should be based on the reported eGFR value de-indexed from BSA by multiplying by the individual' s BSA and dividing by 1.73. CKD is diagnosed based on abnormaliti es of kidney structure or function, present for >3 months, with implication s for health and disease. CKD is classified and staged based on cause, eGFR and albuminuria (quantified as urine albumin to creatinine ratio). An eGFR >60 mL/min/1.73 m2 in the absence of increased urine albumin excretion or structural abnormaliti es does not represent CKD. eGFR CKD Interpretat ion (mL/min/1.7 3 m2) stage >=90 G1 Normal 60-89 G2 Mild decrease 45-59 G3A Mild to moderate decrease 30-44 G3B Moderate to severe decrease 15-29 G4 Severe decrease <15 G5 Kidney failure Vitamin B12 test may not yield results when protein level of sample is too elevated. Ordering Provider: MARILUZ BARFIELD Report Released Date/Time: May 02, 2024 01:19 PM Reporting Lab: [facility] [address] [address] Performing Lab: [facility] [address] [address] [facility] PANEL 2 ALKALINE PHOSPHATASE [ENZYMATIC ACTIVITY/VO LUME] IN SERUM OR PLASMA 72 U/L 40 - 150 05/02 Specimen Type: PLASMA Comment: Estimated Glomerular Filtration Rate (eGFR) calculated using the 2020 Chronic Kidney Disease-Epi demiology (CKD-EPI) Collaborati on creatinine equation; units of measure are mL/min/1.73 m2. Results are only valid for adults (>=18 years) whose serum creatinine is in a steady state. eGFR calculation s are not valid for patients with acute kidney injury and for patients on dialysis. Creatinine- based estimates of kidney function may also be inaccurate in patients with reduced creatinine generation due to decreased muscle mass (e.g., malnutritio n, severe hypoalbumin emia, sarcopenia, chronic neuromuscul ar disease, amputations , severe heart failure or liver disease) and in patients with increased creatinine generation due to increased muscle mass (e.g., muscle builders, anabolic steroids) or increased dietary intake. As drug clearance is proportiona l to total GFR and not GFR indexed to body surface area (BSA), in individuals with a BSA substantial ly different than 1.73 m2, drug dosing should be based on the reported eGFR value de-indexed from BSA by multiplying by the individual' s BSA and dividing by 1.73. CKD is diagnosed based on abnormaliti es of kidney structure or function, present for >3 months, with implication s for health and disease. CKD is classified and staged based on cause, eGFR and albuminuria (quantified as urine albumin to creatinine ratio). An eGFR >60 mL/min/1.73 m2 in the absence of increased urine albumin excretion or structural abnormaliti es does not represent CKD. eGFR CKD Interpretat ion (mL/min/1.7 3 m2) stage >=90 G1 Normal 60-89 G2 Mild decrease 45-59 G3A Mild to moderate decrease 30-44 G3B Moderate to severe decrease 15-29 G4 Severe decrease <15 G5 Kidney failure Vitamin B12 test may not yield results when protein level of sample is too elevated. Ordering Provider: MARILUZ BARFIELD Report Released Date/Time: May 02, 2024 01:19 PM Reporting Lab: [facility] [address] [address] Performing Lab: [facility] [address] [address] [facility] PANEL 2 BILIRUBIN.D IRECT [MASS/VOLUM E] IN SERUM OR PLASMA 0.2 mg/dL 0.0 - 0.5 05/02 Specimen Type: PLASMA Comment: Estimated Glomerular Filtration Rate (eGFR) calculated using the 2020 Chronic Kidney Disease-Epi demiology (CKD-EPI) Collaborati on creatinine equation; units of measure are mL/min/1.73 m2. Results are only valid for adults (>=18 years) whose serum creatinine is in a steady state. eGFR calculation s are not valid for patients with acute kidney injury and for patients on dialysis. Creatinine- based estimates of kidney function may also be inaccurate in patients with reduced creatinine generation due to decreased muscle mass (e.g., malnutritio n, severe hypoalbumin emia, sarcopenia, chronic neuromuscul ar disease, amputations , severe heart failure or liver disease) and in patients with increased creatinine generation due to increased muscle mass (e.g., muscle builders, anabolic steroids) or increased dietary intake. As drug clearance is proportiona l to total GFR and not GFR indexed to body surface area (BSA), in individuals with a BSA substantial ly different than 1.73 m2, drug dosing should be based on the reported eGFR value de-indexed from BSA by multiplying by the individual' s BSA and dividing by 1.73. CKD is diagnosed based on abnormaliti es of kidney structure or function, present for >3 months, with implication s for health and disease. CKD is classified and staged based on cause, eGFR and albuminuria (quantified as urine albumin to creatinine ratio). An eGFR >60 mL/min/1.73 m2 in the absence of increased urine albumin excretion or structural abnormaliti es does not represent CKD. eGFR CKD Interpretat ion (mL/min/1.7 3 m2) stage >=90 G1 Normal 60-89 G2 Mild decrease 45-59 G3A Mild to moderate decrease 30-44 G3B Moderate to severe decrease 15-29 G4 Severe decrease <15 G5 Kidney failure Vitamin B12 test may not yield results when protein level of sample is too elevated. Ordering Provider: MARILUZ BARFIELD Report Released Date/Time: May 02, 2024 01:19 PM Reporting Lab: [facility] [address] [address] Performing Lab: [facility] [address] [address] [facility] PANEL 1 CREATININE [MASS/VOLUM E] IN SERUM OR PLASMA 1.01 mg/dL 0.72 - 1.25 05/02 Specimen Type: PLASMA Comment: Estimated Glomerular Filtration Rate (eGFR) calculated using the 2020 Chronic Kidney Disease-Epi demiology (CKD-EPI) Collaborati on creatinine equation; units of measure are mL/min/1.73 m2. Results are only valid for adults (>=18 years) whose serum creatinine is in a steady state. eGFR calculation s are not valid for patients with acute kidney injury and for patients on dialysis. Creatinine- based estimates of kidney function may also be inaccurate in patients with reduced creatinine generation due to decreased muscle mass (e.g., malnutritio n, severe hypoalbumin emia, sarcopenia, chronic neuromuscul ar disease, amputations , severe heart failure or liver disease) and in patients with increased creatinine generation due to increased muscle mass (e.g., muscle builders, anabolic steroids) or increased dietary intake. As drug clearance is proportiona l to total GFR and not GFR indexed to body surface area (BSA), in individuals with a BSA substantial ly different than 1.73 m2, drug dosing should be based on the reported eGFR value de-indexed from BSA by multiplying by the individual' s BSA and dividing by 1.73. CKD is diagnosed based on abnormaliti es of kidney structure or function, present for >3 months, with implication s for health and disease. CKD is classified and staged based on cause, eGFR and albuminuria (quantified as urine albumin to creatinine ratio). An eGFR >60 mL/min/1.73 m2 in the absence of increased urine albumin excretion or structural abnormaliti es does not represent CKD. eGFR CKD Interpretat ion (mL/min/1.7 3 m2) stage >=90 G1 Normal 60-89 G2 Mild decrease 45-59 G3A Mild to moderate decrease 30-44 G3B Moderate to severe decrease 15-29 G4 Severe decrease <15 G5 Kidney failure Vitamin B12 test may not yield results when protein level of sample is too elevated. Ordering Provider: MARILUZ BARFIELD Report Released Date/Time: May 02, 2024 01:19 PM Reporting Lab: [facility] [address] [address] Performing Lab: [facility] [address] [address] [facility] PANEL 1 UREA NITROGEN [MASS/VOLUM E] IN SERUM OR PLASMA 14 mg/dL 9 05/02 Specimen Type: PLASMA Comment: Estimated Glomerular Filtration Rate (eGFR) calculated using the 2020 Chronic Kidney Disease-Epi demiology (CKD-EPI) Collaborati on creatinine equation; units of measure are mL/min/1.73 m2. Results are only valid for adults (>=18 years) whose serum creatinine is in a steady state. eGFR calculation s are not valid for patients with acute kidney injury and for patients on dialysis. Creatinine- based estimates of kidney function may also be inaccurate in patients with reduced creatinine generation due to decreased muscle mass (e.g., malnutritio n, severe hypoalbumin emia, sarcopenia, chronic neuromuscul ar disease, amputations , severe heart failure or liver disease) and in patients with increased creatinine generation due to increased muscle mass (e.g., muscle builders, anabolic steroids) or increased dietary intake. As drug clearance is proportiona l to total GFR and not GFR indexed to body surface area (BSA), in individuals with a BSA substantial ly different than 1.73 m2, drug dosing should be based on the reported eGFR value de-indexed from BSA by multiplying by the individual' s BSA and dividing by 1.73. CKD is diagnosed based on abnormaliti es of kidney structure or function, present for >3 months, with implication s for health and disease. CKD is classified and staged based on cause, eGFR and albuminuria (quantified as urine albumin to creatinine ratio). An eGFR >60 mL/min/1.73 m2 in the absence of increased urine albumin excretion or structural abnormaliti es does not represent CKD. eGFR CKD Interpretat ion (mL/min/1.7 3 m2) stage >=90 G1 Normal 60-89 G2 Mild decrease 45-59 G3A Mild to moderate decrease 30-44 G3B Moderate to severe decrease 15-29 G4 Severe decrease <15 G5 Kidney failure Vitamin B12 test may not yield results when protein level of sample is too elevated. Ordering Provider: MARILUZ BARFIELD Report Released Date/Time: May 02, 2024 01:19 PM Reporting Lab: [facility] [address] [address] Performing Lab: [facility] [address] [address] [facility] PANEL 1 GLUCOSE [MASS/VOLUM E] IN SERUM OR PLASMA 108 mg/dL 74 - 100 05/02 H Specimen Type: PLASMA Comment: Estimated Glomerular Filtration Rate (eGFR) calculated using the 2020 Chronic Kidney Disease-Epi demiology (CKD-EPI) Collaborati on creatinine equation; units of measure are mL/min/1.73 m2. Results are only valid for adults (>=18 years) whose serum creatinine is in a steady state. eGFR calculation s are not valid for patients with acute kidney injury and for patients on dialysis. Creatinine- based estimates of kidney function may also be inaccurate in patients with reduced creatinine generation due to decreased muscle mass (e.g., malnutritio n, severe hypoalbumin emia, sarcopenia, chronic neuromuscul ar disease, amputations , severe heart failure or liver disease) and in patients with increased creatinine generation due to increased muscle mass (e.g., muscle builders, anabolic steroids) or increased dietary intake. As drug clearance is proportiona l to total GFR and not GFR indexed to body surface area (BSA), in individuals with a BSA substantial ly different than 1.73 m2, drug dosing should be based on the reported eGFR value de-indexed from BSA by multiplying by the individual' s BSA and dividing by 1.73. CKD is diagnosed based on abnormaliti es of kidney structure or function, present for >3 months, with implication s for health and disease. CKD is classified and staged based on cause, eGFR and albuminuria (quantified as urine albumin to creatinine ratio). An eGFR >60 mL/min/1.73 m2 in the absence of increased urine albumin excretion or structural abnormaliti es does not represent CKD. eGFR CKD Interpretat ion (mL/min/1.7 3 m2) stage >=90 G1 Normal 60-89 G2 Mild decrease 45-59 G3A Mild to moderate decrease 30-44 G3B Moderate to severe decrease 15-29 G4 Severe decrease <15 G5 Kidney failure Vitamin B12 test may not yield results when protein level of sample is too elevated. Ordering Provider: MARILUZ BARFIELD Report Released Date/Time: May 02, 2024 01:19 PM Reporting Lab: [facility] [address] [address] Performing Lab: [facility] [address] [address] [facility] PANEL 1 SODIUM [MOLES/VOLU ME] IN SERUM OR PLASMA 141 mmol/L 136 - 145 05/02 Specimen Type: PLASMA Comment: Estimated Glomerular Filtration Rate (eGFR) calculated using the 2020 Chronic Kidney Disease-Epi demiology (CKD-EPI) Collaborati on creatinine equation; units of measure are mL/min/1.73 m2. Results are only valid for adults (>=18 years) whose serum creatinine is in a steady state. eGFR calculation s are not valid for patients with acute kidney injury and for patients on dialysis. Creatinine- based estimates of kidney function may also be inaccurate in patients with reduced creatinine generation due to decreased muscle mass (e.g., malnutritio n, severe hypoalbumin emia, sarcopenia, chronic neuromuscul ar disease, amputations , severe heart failure or liver disease) and in patients with increased creatinine generation due to increased muscle mass (e.g., muscle builders, anabolic steroids) or increased dietary intake. As drug clearance is proportiona l to total GFR and not GFR indexed to body surface area (BSA), in individuals with a BSA substantial ly different than 1.73 m2, drug dosing should be based on the reported eGFR value de-indexed from BSA by multiplying by the individual' s BSA and dividing by 1.73. CKD is diagnosed based on abnormaliti es of kidney structure or function, present for >3 months, with implication s for health and disease. CKD is classified and staged based on cause, eGFR and albuminuria (quantified as urine albumin to creatinine ratio). An eGFR >60 mL/min/1.73 m2 in the absence of increased urine albumin excretion or structural abnormaliti es does not represent CKD. eGFR CKD Interpretat ion (mL/min/1.7 3 m2) stage >=90 G1 Normal 60-89 G2 Mild decrease 45-59 G3A Mild to moderate decrease 30-44 G3B Moderate to severe decrease 15-29 G4 Severe decrease <15 G5 Kidney failure Vitamin B12 test may not yield results when protein level of sample is too elevated. Ordering Provider: MARILUZ BARFIELD Report Released Date/Time: May 02, 2024 01:19 PM Reporting Lab: SIMONE VICTOR [facility] [address] [facility] [phone] Performing Lab: SIMONE VICTOR [facility] [address] [place] [phone] [facility] PANEL 1 POTASSIUM [MOLES/VOLU ME] IN SERUM OR PLASMA 4.2 mmol/L 3.5 - 5.1 05/02 Specimen Type: PLASMA Comment: Estimated Glomerular Filtration Rate (eGFR) calculated using the 2020 Chronic Kidney Disease-Epi demiology (CKD-EPI) Collaborati on creatinine equation; units of measure are mL/min/1.73 m2. Results are only valid for adults (>=18 years) whose serum creatinine is in a steady state. eGFR calculation s are not valid for patients with acute kidney injury and for patients on dialysis. Creatinine- based estimates of kidney function may also be inaccurate in patients with reduced creatinine generation due to decreased muscle mass (e.g., malnutritio n, severe hypoalbumin emia, sarcopenia, chronic neuromuscul ar disease, amputations , severe heart failure or liver disease) and in patients with increased creatinine generation due to increased muscle mass (e.g., muscle builders, anabolic steroids) or increased dietary intake. As drug clearance is proportiona l to total GFR and not GFR indexed to body surface area (BSA), in individuals with a BSA substantial ly different than 1.73 m2, drug dosing should be based on the reported eGFR value de-indexed from BSA by multiplying by the individual' s BSA and dividing by 1.73. CKD is diagnosed based on abnormaliti es of kidney structure or function, present for >3 months, with implication s for health and disease. CKD is classified and staged based on cause, eGFR and albuminuria (quantified as urine albumin to creatinine ratio). An eGFR >60 mL/min/1.73 m2 in the absence of increased urine albumin excretion or structural abnormaliti es does not represent CKD. eGFR CKD Interpretat ion (mL/min/1.7 3 m2) stage >=90 G1 Normal 60-89 G2 Mild decrease 45-59 G3A Mild to moderate decrease 30-44 G3B Moderate to severe decrease 15-29 G4 Severe decrease <15 G5 Kidney failure Vitamin B12 test may not yield results when protein level of sample is too elevated. Ordering Provider: MARILUZ BARFIELD Report Released Date/Time: May 02, 2024 01:19 PM Reporting Lab: SIMONE KAYLEIGH [facility] [address] [facility] [phone] Performing Lab: KAYLAAntoine VICTOR [address] [phone] [facility] PANEL 1 CHLORIDE [MOLES/VOLU ME] IN SERUM OR PLASMA 106 mmol/L 98 - 107 05/02 Specimen Type: PLASMA Comment: Estimated Glomerular Filtration Rate (eGFR) calculated using the 2020 Chronic Kidney Disease-Epi demiology (CKD-EPI) Collaborati on creatinine equation; units of measure are mL/min/1.73 m2. Results are only valid for adults (>=18 years) whose serum creatinine is in a steady state. eGFR calculation s are not valid for patients with acute kidney injury and for patients on dialysis. Creatinine- based estimates of kidney function may also be inaccurate in patients with reduced creatinine generation due to decreased muscle mass (e.g., malnutritio n, severe hypoalbumin emia, sarcopenia, chronic neuromuscul ar disease, amputations , severe heart failure or liver disease) and in patients with increased creatinine generation due to increased muscle mass (e.g., muscle builders, anabolic steroids) or increased dietary intake. As drug clearance is proportiona l to total GFR and not GFR indexed to body surface area (BSA), in individuals with a BSA substantial ly different than 1.73 m2, drug dosing should be based on the reported eGFR value de-indexed from BSA by multiplying by the individual' s BSA and dividing by 1.73. CKD is diagnosed based on abnormaliti es of kidney structure or function, present for >3 months, with implication s for health and disease. CKD is classified and staged based on cause, eGFR and albuminuria (quantified as urine albumin to creatinine ratio). An eGFR >60 mL/min/1.73 m2 in the absence of increased urine albumin excretion or structural abnormaliti es does not represent CKD. eGFR CKD Interpretat ion (mL/min/1.7 3 m2) stage >=90 G1 Normal 60-89 G2 Mild decrease 45-59 G3A Mild to moderate decrease 30-44 G3B Moderate to severe decrease 15-29 G4 Severe decrease <15 G5 Kidney failure Vitamin B12 test may not yield results when protein level of sample is too elevated. Ordering Provider: MARILUZ BARFIELD Report Released Date/Time: May 02, 2024 01:19 PM Reporting Lab: SIMONE VICOTR [address] [phone] Performing Lab: [address] [phone] [facility] PANEL 1 CARBON DIOXIDE, TOTAL [MOLES/VOLU ME] IN SERUM OR PLASMA 26 mmol/L - 05/02 Specimen Type: PLASMA Comment: Estimated Glomerular Filtration Rate (eGFR) calculated using the 2020 Chronic Kidney Disease-Epi demiology (CKD-EPI) Collaborati on creatinine equation; units of measure are mL/min/1.73 m2. Results are only valid for adults (>=18 years) whose serum creatinine is in a steady state. eGFR calculation s are not valid for patients with acute kidney injury and for patients on dialysis. Creatinine- based estimates of kidney function may also be inaccurate in patients with reduced creatinine generation due to decreased muscle mass (e.g., malnutritio n, severe hypoalbumin emia, sarcopenia, chronic neuromuscul ar disease, amputations , severe heart failure or liver disease) and in patients with increased creatinine generation due to increased muscle mass (e.g., muscle builders, anabolic steroids) or increased dietary intake. As drug clearance is proportiona l to total GFR and not GFR indexed to body surface area (BSA), in individuals with a BSA substantial ly different than 1.73 m2, drug dosing should be based on the reported eGFR value de-indexed from BSA by multiplying by the individual' s BSA and dividing by 1.73. CKD is diagnosed based on abnormaliti es of kidney structure or function, present for >3 months, with implication s for health and disease. CKD is classified and staged based on cause, eGFR and albuminuria (quantified as urine albumin to creatinine ratio). An eGFR >60 mL/min/1.73 m2 in the absence of increased urine albumin excretion or structural abnormaliti es does not represent CKD. eGFR CKD Interpretat ion (mL/min/1.7 3 m2) stage >=90 G1 Normal 60-89 G2 Mild decrease 45-59 G3A Mild to moderate decrease 30-44 G3B Moderate to severe decrease 15-29 G4 Severe decrease <15 G5 Kidney failure Vitamin B12 test may not yield results when protein level of sample is too elevated. Ordering Provider: MARILUZ BARFIELD Report Released Date/Time: May 02, 2024 01:19 PM Reporting Lab: SIMONE VICTOR [address] [phone] Performing Lab: SIMONE VICTOR [address] [phone] [facility] PANEL 1 CALCIUM [MASS/VOLUM E] IN SERUM OR PLASMA 9.8 mg/dL 8.4 - 10.2 05/02 Specimen Type: PLASMA Comment: Estimated Glomerular Filtration Rate (eGFR) calculated using the 2020 Chronic Kidney Disease-Epi demiology (CKD-EPI) Collaborati on creatinine equation; units of measure are mL/min/1.73 m2. Results are only valid for adults (>=18 years) whose serum creatinine is in a steady state. eGFR calculation s are not valid for patients with acute kidney injury and for patients on dialysis. Creatinine- based estimates of kidney function may also be inaccurate in patients with reduced creatinine generation due to decreased muscle mass (e.g., malnutritio n, severe hypoalbumin emia, sarcopenia, chronic neuromuscul ar disease, amputations , severe heart failure or liver disease) and in patients with increased creatinine generation due to increased muscle mass (e.g., muscle builders, anabolic steroids) or increased dietary intake. As drug clearance is proportiona l to total GFR and not GFR indexed to body surface area (BSA), in individuals with a BSA substantial ly different than 1.73 m2, drug dosing should be based on the reported eGFR value de-indexed from BSA by multiplying by the individual' s BSA and dividing by 1.73. CKD is diagnosed based on abnormaliti es of kidney structure or function, present for >3 months, with implication s for health and disease. CKD is classified and staged based on cause, eGFR and albuminuria (quantified as urine albumin to creatinine ratio). An eGFR >60 mL/min/1.73 m2 in the absence of increased urine albumin excretion or structural abnormaliti es does not represent CKD. eGFR CKD Interpretat ion (mL/min/1.7 3 m2) stage >=90 G1 Normal 60-89 G2 Mild decrease 45-59 G3A Mild to moderate decrease 30-44 G3B Moderate to severe decrease 15-29 G4 Severe decrease <15 G5 Kidney failure Vitamin B12 test may not yield results when protein level of sample is too elevated. Ordering Provider: MARILUZ BARFIELD Report Released Date/Time: May 02, 2024 01:19 PM Reporting Lab: SIMONE VICTOR [address] [phone] Performing Lab: SIMONE VICTOR [address] [phone] [facility] PANEL 1 ANION GAP 3 IN SERUM OR PLASMA 9 meq/L 3 - 19 05/02 Specimen Type: PLASMA Comment: Estimated Glomerular Filtration Rate (eGFR) calculated using the 2020 Chronic Kidney Disease-Epi demiology (CKD-EPI) Collaborati on creatinine equation; units of measure are mL/min/1.73 m2. Results are only valid for adults (>=18 years) whose serum creatinine is in a steady state. eGFR calculation s are not valid for patients with acute kidney injury and for patients on dialysis. Creatinine- based estimates of kidney function may also be inaccurate in patients with reduced creatinine generation due to decreased muscle mass (e.g., malnutritio n, severe hypoalbumin emia, sarcopenia, chronic neuromuscul ar disease, amputations , severe heart failure or liver disease) and in patients with increased creatinine generation due to increased muscle mass (e.g., muscle builders, anabolic steroids) or increased dietary intake. As drug clearance is proportiona l to total GFR and not GFR indexed to body surface area (BSA), in individuals with a BSA substantial ly different than 1.73 m2, drug dosing should be based on the reported eGFR value de-indexed from BSA by multiplying by the individual' s BSA and dividing by 1.73. CKD is diagnosed based on abnormaliti es of kidney structure or function, present for >3 months, with implication s for health and disease. CKD is classified and staged based on cause, eGFR and albuminuria (quantified as urine albumin to creatinine ratio). An eGFR >60 mL/min/1.73 m2 in the absence of increased urine albumin excretion or structural abnormaliti es does not represent CKD. eGFR CKD Interpretat ion (mL/min/1.7 3 m2) stage >=90 G1 Normal 60-89 G2 Mild decrease 45-59 G3A Mild to moderate decrease 30-44 G3B Moderate to severe decrease 15-29 G4 Severe decrease <15 G5 Kidney failure Vitamin B12 test may not yield results when protein level of sample is too elevated. Ordering Provider: MARILUZ BARFIELD Report Released Date/Time: May 02, 2024 01:19 PM Reporting Lab: SIMONE VICTOR [address] [phone] Performing Lab: SIMONE VICTOR [address] [phone] [facility] 1 GLOMERULAR FILTRATION RATE/1.73 SQ M.PREDICTED [VOLUME RATE/AREA] IN SERUM, PLASMA OR BLOOD BY CREATININE- BASED FORMULA (CKD-EPI 2020) 83 05/02 Specimen Type: PLASMA Comment: Estimated Glomerular Filtration Rate (eGFR) calculated using the 2020 Chronic Kidney Disease-Epi demiology (CKD-EPI) Collaborati on creatinine equation; units of measure are mL/min/1.73 m2. Results are only valid for adults (>=18 years) whose serum creatinine is in a steady state. eGFR calculation s are not valid for patients with acute kidney injury and for patients on dialysis. Creatinine- based estimates of kidney function may also be inaccurate in patients with reduced creatinine generation due to decreased muscle mass (e.g., malnutritio n, severe hypoalbumin emia, sarcopenia, chronic neuromuscul ar disease, amputations , severe heart failure or liver disease) and in patients with increased creatinine generation due to increased muscle mass (e.g., muscle builders, anabolic steroids) or increased dietary intake. As drug clearance is proportiona l to total GFR and not GFR indexed to body surface area (BSA), in individuals with a BSA substantial ly different than 1.73 m2, drug dosing should be based on the reported eGFR value de-indexed from BSA by multiplying by the individual' s BSA and dividing by 1.73. CKD is diagnosed based on abnormaliti es of kidney structure or function, present for >3 months, with implication s for health and disease. CKD is classified and staged based on cause, eGFR and albuminuria (quantified as urine albumin to creatinine ratio). An eGFR >60 mL/min/1.73 m2 in the absence of increased urine albumin excretion or structural abnormaliti es does not represent CKD. eGFR CKD Interpretat ion (mL/min/1.7 3 m2) stage >=90 G1 Normal 60-89 G2 Mild decrease 45-59 G3A Mild to moderate decrease 30-44 G3B Moderate to severe decrease 15-29 G4 Severe decrease <15 G5 Kidney failure Vitamin B12 test may not yield results when protein level of sample is too elevated. Ordering Provider: MARILUZ BARFIELD Report Released Date/Time: May 02, 2024 01:19 PM Reporting Lab: SIMONE VICTOR [address] [phone] Performing Lab: SIMONE VICTOR [address] [address] [facility] 25-OH VITAMIN D 25-HYDROXYV ITAMIN D3 [MASS/VOLUM E] IN SERUM OR PLASMA 34.4 ng/mL 20.0 - 50.0 05/02 Specimen Type: SERUM Comment: The National Institutes of Health (NIH) recommendat ions state: <12 ng/mL - Deficient 20 - 50 ng/mL - Optimal Levels - adequate for most people. >50 ng/mL - Increased risk of hypercalciu heather/other health problems - clinical correlation is required. These reference ranges represent clinical decision values rather than population- based reference values. Ordering Provider: MARILUZ BARFIELD Report Released Date/Time: May 02, 2024 01:19 PM Reporting Lab: SIMONE KAYLEIGH [facility] [address] [facility] [address] Performing Lab: SIMONE KAYLEIGH [facility] [address] [facility] [phone] [facility] B12 VITAMIN COBALAMIN (VITAMIN B12) [MASS/VOLUM E] IN SERUM OR PLASMA >2000p g/mL 213 - 816 05/02 H Specimen Type: PLASMA Comment: Estimated Glomerular Filtration Rate (eGFR) calculated using the 2020 Chronic Kidney Disease-Epi demiology (CKD-EPI) Collaborati on creatinine equation; units of measure are mL/min/1.73 m2. Results are only valid for adults (>=18 years) whose serum creatinine is in a steady state. eGFR calculation s are not valid for patients with acute kidney injury and for patients on dialysis. Creatinine- based estimates of kidney function may also be inaccurate in patients with reduced creatinine generation due to decreased muscle mass (e.g., malnutritio n, severe hypoalbumin emia, sarcopenia, chronic neuromuscul ar disease, amputations , severe heart failure or liver disease) and in patients with increased creatinine generation due to increased muscle mass (e.g., muscle builders, anabolic steroids) or increased dietary intake. As drug clearance is proportiona l to total GFR and not GFR indexed to body surface area (BSA), in individuals with a BSA substantial ly different than 1.73 m2, drug dosing should be based on the reported eGFR value de-indexed from BSA by multiplying by the individual' s BSA and dividing by 1.73. CKD is diagnosed based on abnormaliti es of kidney structure or function, present for >3 months, with implication s for health and disease. CKD is classified and staged based on cause, eGFR and albuminuria (quantified as urine albumin to creatinine ratio). An eGFR >60 mL/min/1.73 m2 in the absence of increased urine albumin excretion or structural abnormaliti es does not represent CKD. eGFR CKD Interpretat ion (mL/min/1.7 3 m2) stage >=90 G1 Normal 60-89 G2 Mild decrease 45-59 G3A Mild to moderate decrease 30-44 G3B Moderate to severe decrease 15-29 G4 Severe decrease <15 G5 Kidney failure Vitamin B12 test may not yield results when protein level of sample is too elevated. Ordering Provider: MARILUZ BARFIELD Report Released Date/Time: May 02, 2024 01:19 PM Reporting Lab: JULIO CAntoine VICTOR [facility] [address] [place] [phone] Performing Lab: [address] [address] [facility] THYROID PROFILE THYROTROPIN [UNITS/VOLU ME] IN SERUM OR PLASMA 0.9037 m[IU]/ mL 0.3500 - 4.9400 05/02 Specimen Type: PLASMA Comment: Estimated Glomerular Filtration Rate (eGFR) calculated using the 2020 Chronic Kidney Disease-Epi demiology (CKD-EPI) Collaborati on creatinine equation; units of measure are mL/min/1.73 m2. Results are only valid for adults (>=18 years) whose serum creatinine is in a steady state. eGFR calculation s are not valid for patients with acute kidney injury and for patients on dialysis. Creatinine- based estimates of kidney function may also be inaccurate in patients with reduced creatinine generation due to decreased muscle mass (e.g., malnutritio n, severe hypoalbumin emia, sarcopenia, chronic neuromuscul ar disease, amputations , severe heart failure or liver disease) and in patients with increased creatinine generation due to increased muscle mass (e.g., muscle builders, anabolic steroids) or increased dietary intake. As drug clearance is proportiona l to total GFR and not GFR indexed to body surface area (BSA), in individuals with a BSA substantial ly different than 1.73 m2, drug dosing should be based on the reported eGFR value de-indexed from BSA by multiplying by the individual' s BSA and dividing by 1.73. CKD is diagnosed based on abnormaliti es of kidney structure or function, present for >3 months, with implication s for health and disease. CKD is classified and staged based on cause, eGFR and albuminuria (quantified as urine albumin to creatinine ratio). An eGFR >60 mL/min/1.73 m2 in the absence of increased urine albumin excretion or structural abnormaliti es does not represent CKD. eGFR CKD Interpretat ion (mL/min/1.7 3 m2) stage >=90 G1 Normal 60-89 G2 Mild decrease 45-59 G3A Mild to moderate decrease 30-44 G3B Moderate to severe decrease 15-29 G4 Severe decrease <15 G5 Kidney failure Vitamin B12 test may not yield results when protein level of sample is too elevated. Ordering Provider: MARILUZ BARFIELD Report Released Date/Time: May 02, 2024 01:19 PM Reporting Lab: SIMONE VICTOR [address] [phone] Performing Lab: SIMONE VICTOR [address] [phone] [facility] THYROID PROFILE FREE T4 0.91 ng/mL 0.70 - 1.48 05/02 Specimen Type: PLASMA Comment: Estimated Glomerular Filtration Rate (eGFR) calculated using the 2020 Chronic Kidney Disease-Epi demiology (CKD-EPI) Collaborati on creatinine equation; units of measure are mL/min/1.73 m2. Results are only valid for adults (>=18 years) whose serum creatinine is in a steady state. eGFR calculation s are not valid for patients with acute kidney injury and for patients on dialysis. Creatinine- based estimates of kidney function may also be inaccurate in patients with reduced creatinine generation due to decreased muscle mass (e.g., malnutritio n, severe hypoalbumin emia, sarcopenia, chronic neuromuscul ar disease, amputations , severe heart failure or liver disease) and in patients with increased creatinine generation due to increased muscle mass (e.g., muscle builders, anabolic steroids) or increased dietary intake. As drug clearance is proportiona l to total GFR and not GFR indexed to body surface area (BSA), in individuals with a BSA substantial ly different than 1.73 m2, drug dosing should be based on the reported eGFR value de-indexed from BSA by multiplying by the individual' s BSA and dividing by 1.73. CKD is diagnosed based on abnormaliti es of kidney structure or function, present for >3 months, with implication s for health and disease. CKD is classified and staged based on cause, eGFR and albuminuria (quantified as urine albumin to creatinine ratio). An eGFR >60 mL/min/1.73 m2 in the absence of increased urine albumin excretion or structural abnormaliti es does not represent CKD. eGFR CKD Interpretat ion (mL/min/1.7 3 m2) stage >=90 G1 Normal 60-89 G2 Mild decrease 45-59 G3A Mild to moderate decrease 30-44 G3B Moderate to severe decrease 15-29 G4 Severe decrease <15 G5 Kidney failure Vitamin B12 test may not yield results when protein level of sample is too elevated. Ordering Provider: MARILUZ BARFIELD Report Released Date/Time: May 02, 2024 01:19 PM Reporting Lab: [address] [phone] Performing Lab: [address] [address] [facility] DRUG SCREEN IN-HOUSE ROUTINE TETRAHYDROC ANNABINOL [PRESENCE] IN URINE POS Cutoff < 50 - 50 05/02 Specimen Type: URINE Comment: Screening method results are unconfirmed and are for medical use only. Unconfirmed screening results must not be used for non-medical purposes. Opiates test most sensitive for morphine, codeine and heroin and less sensitive for hydrocodone and hydromorpho ne where higher concentrati ons are needed for cut-off detection. Ordering Provider: MARILUZ BARFIELD Report Released Date/Time: May 02, 2024 01:37 PM Reporting Lab: [address] [phone] Performing Lab: [address] [phone] [facility] DRUG SCREEN IN-HOUSE ROUTINE AMPHETAMINE S [PRESENCE] IN URINE NEG Cutoff < 1000 - 1000 05/02 Specimen Type: URINE Comment: Screening method results are unconfirmed and are for medical use only. Unconfirmed screening results must not be used for non-medical purposes. Opiates test most sensitive for morphine, codeine and heroin and less sensitive for hydrocodone and hydromorpho ne where higher concentrati ons are needed for cut-off detection. Ordering Provider: MARILUZ BARFIELD Report Released Date/Time: May 02, 2024 01:37 PM Reporting Lab: [address] [phone] Performing Lab: [address] [phone] [place] [address] DRUG SCREEN IN-HOUSE ROUTINE BARBITURATE S [PRESENCE] IN URINE BY SCREEN METHOD NEG Cutoff < 200 - 200 05/02 Specimen Type: URINE Comment: Screening method results are unconfirmed and are for medical use only. Unconfirmed screening results must not be used for non-medical purposes. Opiates test most sensitive for morphine, codeine and heroin and less sensitive for hydrocodone and hydromorpho ne where higher concentrati ons are needed for cut-off detection. Ordering Provider: MARILUZ BARFIELD Report Released Date/Time: May 02, 2024 01:37 PM Reporting Lab: [address] [phone] Performing Lab: [address] [address] [facility] [facility] DRUG SCREEN IN-HOUSE ROUTINE BENZODIAZEP PAOLA [PRESENCE] IN URINE BY SCREEN METHOD NEG Cutoff < 200 - 200 05/02 Specimen Type: URINE Comment: Screening method results are unconfirmed and are for medical use only. Unconfirmed screening results must not be used for non-medical purposes. Opiates test most sensitive for morphine, codeine and heroin and less sensitive for hydrocodone and hydromorpho ne where higher concentrati ons are needed for cut-off detection. Ordering Provider: MARILUZ BARFIELD Report Released Date/Time: May 02, 2024 01:37 PM Reporting Lab: [address] [address] Performing Lab: [address] [id number] [place] [address] DRUG SCREEN IN-HOUSE ROUTINE BENZOYLECGO NINE [PRESENCE] IN URINE NEG Cutoff < 300 - 300 05/02 Specimen Type: URINE Comment: Screening method results are unconfirmed and are for medical use only. Unconfirmed screening results must not be used for non-medical purposes. Opiates test most sensitive for morphine, codeine and heroin and less sensitive for hydrocodone and hydromorpho ne where higher concentrati ons are needed for cut-off detection. Ordering Provider: MARILUZ BARFIELD Report Released Date/Time: May 02, 2024 01:37 PM Reporting Lab: [place] [id number] Performing Lab: [address] DRUG SCREEN IN-HOUSE ROUTINE OPIATES [PRESENCE] IN URINE BY SCREEN METHOD NEG Cutoff < 300 - 300 05/02 Specimen Type: URINE Comment: Screening method results are unconfirmed and are for medical use only. Unconfirmed screening results must not be used for non-medical purposes. Opiates test most sensitive for morphine, codeine and heroin and less sensitive for hydrocodone and hydromorpho ne where higher concentrati ons are needed for cut-off detection. Ordering Provider: MARILUZ BARFIELD Report Released Date/Time: May 02, 2024 01:37 PM Reporting Lab: [place] [id number] Performing Lab: [place] [id number] DRUG SCREEN IN-HOUSE ROUTINE METHADONE [PRESENCE] IN URINE NEG Cutoff < 300 - 300 05/02 Specimen Type: URINE Comment: Screening method results are unconfirmed and are for medical use only. Unconfirmed screening results must not be used for non-medical purposes. Opiates test most sensitive for morphine, codeine and heroin and less sensitive for hydrocodone and hydromorpho ne where higher concentrati ons are needed for cut-off detection. Ordering Provider: MARILUZ BARFIELD Report Released Date/Time: May 02, 2024 01:37 PM Reporting Lab: [address] [id number] Performing Lab: [address] [phone] [facility] DRUG SCREEN IN-HOUSE ROUTINE OXYCODONE [PRESENCE] IN URINE NEG Cutoff < 200 - 200 05/02 Specimen Type: URINE Comment: Screening method results are unconfirmed and are for medical use only. Unconfirmed screening results must not be used for non-medical purposes. Opiates test most sensitive for morphine, codeine and heroin and less sensitive for hydrocodone and hydromorpho ne where higher concentrati ons are needed for cut-off detection. Ordering Provider: MARILUZ BARFIELD Report Released Date/Time: May 02, 2024 01:37 PM Reporting Lab: [address] [phone] Performing Lab: [address] [phone] [facility] Vital Signs Combined list of inpatient and outpatient Vital Signs from Department of Defense and Veterans Affairs, ranging from 12 months to all on record, depending upon the facility. Vital Sign Value Date Comments Source WEIGHT 288.8 06/02/2024 09:01:09 [facility] BMI 42 kg/m2 06/02/2024 09:01:09 [facility] SYSTOLIC BLOOD PRESSURE 116 05/02/2024 12:52:08 PSYCHIATRIC DIASTOLIC BLOOD PRESSURE 74 05/02/2024 12:52:08 PSYCHIATRIC PULSE OXIMETRY 97 05/02/2024 12:52:08 L [facility] WEIGHT 294 05/02/2024 12:52:08 [facility] BMI 43 kg/m2 05/02/2024 12:52:08 [facility] PAIN 4 05/02/2024 12:52:08 [facility] HEIGHT 69.5 05/02/2024 12:52:08 [facility] TEMPERATURE 96.9 05/02/2024 12:52:08 [facility]UST[facility] PULSE 89 05/02/2024 12:52:08 [facility] RESPIRATION 16 05/02/2024 12:52:08 [facility] SCHUST[facility] Encounters Combined list of: 1) Encounters from Department of [facility] Affairs facilities going backup to the last 18 months, not all [place] inpatient encounters are included; 2) Encounters from the Department of [facility] facilities going backup to 280 months. Location Location Details Encounter Type Encounter Number Reason For Visit Attending Provider ADM Date DC Date Status Disposition Source [facility] Outpatient Encounter [id number] 03/12 [place] [facility] Outpatient Encounter [id number] 05/02 [place] [facility] Outpatient Encounter [id number] 02/05 [place] [facility] Outpatient Encounter [id number] 02/21 [place] [facility] Outpatient Encounter [id number] 03/25 [place] [facility] BRIEF COMUNICAJ TECH-BSD SVC [id number] Diagnos is: ICD-10- CM Z77.29 Contact with and exposur e to other hazardo us substan harlan BOOM TORRES 04/07 [place] [facility] Outpatient Encounter [id number] 04/15 [place] [facility] Outpatient Encounter [id number] 05/02 [place] [facility] OFFICE O/P NEW MOD 45 MIN [id number] Diagnos is: ICD-10- CM I10 Essenti al (primar y) hyperte nsion CAROLYNE,MANE KA S 05/02 [place] [facility] Outpatient Encounter [id number] 05/02 [place] [facility] HLTH BHV ASSMT/REAS SESSMENT [id number] Diagnos is: ICD-10- CM Z65.8 Oth problem s related to psychos ocial circums TIMOTEO Lynne RIL R 05/02 [place] [facility] Outpatient Encounter [id number] 05/02 [place] [facility] Outpatient Encounter [id number] 05/07 [place] [facility] Outpatient Encounter [id number] 05/16 [place] [facility] Outpatient Encounter [id number] 05/19 [place] [facility] COMPRE OPH EXAM NEW PT 1/> [id number] Diagnos is: ICD-10- CM H43.813 Vitreou s degener ation, bilvalentín al PONCHO PANTOJA LLLAWSON K 05/26 [place] [facility] Outpatient Encounter [id number] 06/16 [place] [facility] Outpatient Encounter [id number] 06/23 [place] [facility] Outpatient Encounter [id number] 06/24 [place] [facility] Outpatient Encounter [id number] 07/07 [place] [facility] Social History Combined list of available smoking, tobacco, and other social history from Department of Defense and Veterans Affairs facilities. Social History Type Response Date Comment Sourc e Tobacco smoking status NHIS [facility]-TOBACCO USE FORMER CIGARETTES 05/02/2024 PSYCHIATRIC History of tobacco use [place]-TOBACCO NEVER USED OTHER TYPE 05/02/2024 PSYCHIATRIC This section is an empty social history section. DoD Plan of Care List of future care activities from Department of Veterans Affairs facilities. Additional future care activities may be listed in the Assessment and Plan section. Date/Time Care Activity Care Activity Detail Facili ty 07/25/2024 AMBULATORY - NONE AMBULATORY - NONE [facility]
--- NOTE | 2024-07-23 09:44 | EXP.PAIN.SOA ---
[facility] Disclaimer: The information contained in this section may have been updated after the patient was seen, as this information can be updated by other users. Medical History High cholesterol High glucose Hypertension Cholecystectomy planned Elbow injury Vasectomy planned Broken back Surgical History Total knee replacement status H/O gastric bypass Family History Sister Cancer Father Cancer Grandfather Cancer Mother Hypertension Other Diabetes Thyroid disorder Social History Smoking Status: Former smoker alcohol intake: never substance use type: denies use current occupational status: other Travel in the last 8 weeks?: None Have you lived/traveled outside US in past 30 days?: No Contact w/someone who lives/traveled outside US past 30 days?: No Exposure to someone with infectious disease in past 14 days?: No Do you have a fever (greater than 100.4 F or 38 C)?: No Have you tested positive for COVID-19?: No Exposed to someone with COVID-19 in past 14 days?: No Do you have a sore throat?: No Do you have a cough?: No Do you have any weakness?: No Do you have any diarrhea?: No Are you experiencing any unusual bleeding?: No Do you have any muscle aches/pain?: No Do you have any abdominal pain?: No Are you experiencing loss of taste or smell?: No PM Subjective & Objective Subjective Subjective:: Patient is a pleasant 64-year-old male who presents today for 3-month follow-up. Today he rates his pain a 6 out of 10. He denies any new injury or trauma from her last visit. He does however state that he has been having still the chronic low back pain but it is now radiating down the left leg. Patient states that he has numbness in hot sensations that are along the outside of his upper thigh and radiate down to toes with numbness. He does state the pain is interfering with his ability perform activities of daily living such as cooking and cleaning. Patient is interested in injection therapy. Patient is currently managed with pregabalin 75 mg 3 times a day. He denies any side effects. He does state that recently the OR has been prescribing this and that we do not need to. His Buck has been reviewed and is appropriate. Review of Systems: General: No recent weight changes, no fever, no sleep disturbances Respiratory: No cough, no shortness of air, no recurring pulmonary infections Cardiovascular/peripheral vascular: No chest pain, no palpitations, no edema, no shortness of breath Gastrointestinal: No new onset incontinence, normal bowel movements reported Genitourinary: No new onset incontinence Musculoskeletal: Low back pain, left hip pain, left leg numbness tingling Psychiatric: [Normal mood/affect] Neurological: [Denies weakness in extremities], [denies balance issues] Pain at rest (0-10 scale): 6 Objective Objective:: Physical Exam: General: Alert and oriented x3, no acute distress, pleasant and cooperative Lungs: Respirations even and unlabored, symmetrical chest expansion Eyes: PERRL Musculoskeletal: Flexion and extension of lumbar [spine] somewhat guarded secondary to pain, [antalgic gait noted] positive left leg raise Neurological: Speech clear, no gross sensory deficit Has patient had previous pain injection?: No Conservative treatment options previously tried: Home exercise plan Length of treatment: Longer than 12 weeks Meds Home Medications and Allergies Home Medications ?Medication ?Instructions ?Recorded ?Confirmed ?Type aspirin 81 mg tablet,delayed 81 mg PO DAILY 01/07/24 07/08/24 History release (Adult Aspirin Regimen) diclofenac sodium 1 % topical gel 1 ea topical DIRECTED 01/07/24 07/08/24 History Arthritis, fybromyalga finasteride 5 mg tablet 5 mg PO DAILY enlarged prostrate 01/07/24 07/08/24 History mecobalamin (vitamin B12) 1,000 1,000 mcg PO DAILY 01/07/24 07/08/24 History mcg chewable tablet (B12 Active) metoprolol succinate 50 mg 50 mg PO DAILY High Blood Pressure 01/07/24 07/08/24 History tablet,extended release 24 hr milnacipran 50 mg tablet (Savella) 50 mg PO BID Fybromyalgia 01/07/24 07/08/24 History pantoprazole 40 mg tablet,delayed 80 mg PO BID Acid Reflux 01/07/24 07/08/24 History release tamsulosin 0.4 mg capsule 0.8 mg PO BID treat enlarged 01/07/24 07/08/24 History prostrate sucralfate 100 mg/mL oral 10 ml PO DAILY 04/08/24 07/08/24 History suspension polyethylene glycol 3350 17 17 g PO DAILY 07/08/24 07/08/24 History gram/dose oral powder (Miralax) psyllium husk 3.4 gram/5.4 gram 1 tbsp PO DAILY 07/08/24 07/08/24 History oral powder (Metamucil) pregabalin 75 mg capsule (Lyrica) 75 mg PO TID #90 caps 07/23/24 Rx New Prescriptions to Start Prescriptions: pregabalin [Lyrica] Pippa Hernandez Celia Allergies Allergy/AdvReac Type Severity Reaction Status Date / Time No Known Allergies Allergy Verified 07/08/24 09:50 Assessment and Plan *Assessment and plan (1) Low back pain: Status: Acute Category: Medical Code(s): M54.50 - Low back pain, unspecified (2) Lumbar radiculopathy: Status: Acute Category: Medical Code(s): M54.16 - Radiculopathy, lumbar region (3) Left hip pain: Status: Acute Category: Medical Code(s): M25.552 - Pain in left hip Plan Patient is experiencing worsening pain in his low back with numbness and tingling into his left leg. Patient did have limited range of motion of his lumbar spine with a positive leg raise. I did discuss with patient that I do believe they would benefit from a lumbar epidural steroid injection. Risk and benefits were discussed with patient and the patient would like to proceed forward with this plan of care. Patient is not on any blood thinners. Patient has tried and failed conservative therapy including continued at home stretching exercise for longer than 12 weeks between injections. Patient has not had any epidurals to compare to. Patient has had chronic back pain for longer than 6 months. We will schedule the patient for an LESI L4-L5 under fluoroscopy. I will also go ahead and order x-ray imaging of his left hip and low back. Patient has been instructed to contact the clinic with any concerns before the next appointment. Dr. Villafuerte has reviewed this note and agrees with this plan of care. This note was dictated using voice recognition software and make contain errors or omissions. All injections are used with Lidocaine, Bupivacaine and Depo Medrol. Occasionally urine drug screen is needed to verify patient's compliance with our office pain contract. This is ordered based off specific treatments related to chronic pain with the potential to abuse certain medications. Patient has been instructed to contact the clinic with any concerns before the next appointment. Dr. Villafuerte has reviewed this note and agrees with this plan of care. This note was dictated using voice recognition software and make contain errors or omissions. All injections are used with Lidocaine, Bupivacaine and dexamethasone. Occasionally urine drug screen is needed to verify patient's compliance with our office pain contract. This is ordered based off specific treatments related to chronic pain with the potential to abuse certain medications.
--- NOTE | 2024-07-23 10:10 | XR_ITS ---
FINAL REPORT CLINICAL HISTORY: Left hip pain FINDINGS: LEFT HIP Three views were obtained. There is no fracture or dislocation. There are moderate hypertrophic changes at the L4-5 disc. No soft tissue abnormality is identified. IMPRESSION: No acute process. Reviewed, Interpreted and Dictated by Leon Torres MD Transcribed by Amy Chi Authenticated and [facility]
--- NOTE | 2024-07-23 10:10 | XR_ITS ---
FINAL REPORT CLINICAL HISTORY: Low back pain with lumbar radiculopathy FINDINGS: LUMBAR SPINE Three views were obtained. There is no acute fracture. There are postoperative changes from prior kyphoplasty at T12 and L1. There is a 50% compression deformity of L1. Moderately advanced disc space narrowing is seen at L4-5. There is moderate facet hypertrophy in the lower lumbar spine. There is no malalignment. IMPRESSION: Degenerative and postsurgical changes. Reviewed, Interpreted and Dictated by Leon Torres MD Transcribed by Amy Chi Authenticated and [facility]
[2024-07-23 10:44] VITALS: BP 140/67; RESP 14; O2SAT 98; BMI 41.3
== END 2024-07-23 23:59 | disposition home or self-care (01) ==
PROVIDERS: PCP Nurse Practitioner Family; Visit Provider Nurse Practitioner Family
DX: M25.552 Pain in left hip (principal); M54.16 Radiculopathy, lumbar region; M54.50 Low back pain, unspecified; Z87.891 Personal history of nicotine dependence; Z73.89 Other problems related to life management difficulty
CPT/HCPCS: 72100; 73502; 99212; G0463

== ENCOUNTER 2024-08-19 08:23 | Day surgery (SDC) | payer MEDICARE, OTHER, SELFPAY ==
[2024-08-19 08:33] VITALS: BP 123/84; PULSE 80; RESP 16; TEMP 36.5; O2SAT 96; BMI 42.2
[2024-08-19] MEDS: DEXAMETHASONE 10MG/ML 1ML VIAL 10 MG (08:55)
[2024-08-19 08:56] VITALS: BP 116/78; PULSE 75; RESP 18; O2SAT 96
[2024-08-19 08:57] VITALS: BP 116/78; PULSE 66; RESP 18; O2SAT 96
--- NOTE | 2024-08-19 09:00 | EXP.PAIN.PRO ---
Procedure Date: 08/19/24 Time: 08:55 Anesthesiologist:: Kade Snow CRNA Complications:: None Pre-procedure Diagnosis:: Degenerative disc lumbar spine multilevels. Lumbar radiculopathy. Post-procedure Diagnosis:: Same. Indications for Procedure:: Patient is a very pleasant 64-year-old male who comes our clinic today for lumbar epidural steroid injection at the L4-5 level. Patient describes low lumbar back pain as constant, dull, aching. Patient also reports some bilateral leg radicular symptoms. He has lumbar spine x-ray shows degenerative disc specifically at L4-5 as well as facet hypertrophy and multiple lumbar levels. Procedure Details:: Procedure: Lumbar epidural steroid injection under fluoroscopy Informed consent was obtained and the risks and benefits of the procedure were explained to the patient. The patient was taken to the procedure room and noninvasive monitors placed, including noninvasive blood pressure cuff and pulse oximeter. The back was viewed using C-arm Fluoroscopy and prepped using Chloraprep as a cleansing solution and the L4-L5 interspace was palpated. Skin and subcutaneous tissues were anesthetized using lidocaine 1.5% and a 25-gauge needle. After this, an 18-gauge Touhy epidural needle was placed into the L4-L5 interspace and advanced using fluoroscopic guidance and loss of resistance to air until the epidural space was encountered. After confirmation of needle placement in the epidural space, with dye, a solution containing normal saline, 3 mL and Depo-Medrol 80 mg were incrementally injected into the lumbar epidural space. The patient tolerated the procedure well with no complications. The patient was observed in the Pain Clinic and then discharged home neurologically intact. Plan and Disposition:: Patient was discharged without incident.
[2024-08-19 09:06] VITALS: BP 130/75; PULSE 76; RESP 16; O2SAT 98
== END 2024-08-19 09:06 | disposition home or self-care (01) ==
PROVIDERS: PCP Nurse Practitioner Family; Visit Provider Nurse Anesthetist, Certified Registered
DX: M51.16 Intervertebral disc disorders with radiculopathy, lumbar region (principal)
CPT/HCPCS: 62323; J1100

== ENCOUNTER 2024-09-08 11:02 | Outpatient (POV) | payer MEDICARE, OTHER, SELFPAY ==
--- OUTSIDE RECORDS SUMMARY | 2024-07-26 11:13 | XMS_ITS | Continuity of Care Document ---
Author Organization [facility] Phone Care Team Providers Care Campaign Management Senior Manager Name Role Phone LILIA WALTON Admitting LILIA WALTON Primary Care LILIA WALTON Primary Attending LILIA WALTON Unavailable ALLERGIES AND ADVERSE REACTIONS ALLERGIES AND ADVERSE REACTIONS Code System Allergy Substance Adverse Reaction Date Reaction (Severity) Comment Status Reported By Updated [place] [id number] RXNorm MIRAPEX Adverse reaction to substance Not Specified active [id number] on November 27, 2023 2:23:16 PM [facility] MEDICATIONS HOME MEDICATIONS Status RXNORM NDC Medication [...] Description Effective Dates Offered Cessation Comment UpdatedBy [id number] Smoking Status Unknown If Ever Smoked SOCIAL [...] available. ENCOUNTERS ENCOUNTER INFORMATION Reason for Visit M72.2 Admission July 16, 2024 4:06:00 PM [facility] [address] [facility] [address] Discharge July 24, 2024 3:59:00 AM UTC DISCH ARGED TO HOME OR SELF CARE ENCOUNTER DIAGNOSES Notes information is not abbie ilable. Code System Diagnosis Onset Date Diagnosis information is not available. 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
--- OUTSIDE RECORDS SUMMARY | 2024-08-25 13:43 | XMS_ITS | Continuity of Care Document ---
Author Organization [facility] Phone Care Team Providers Care Timber Feller Name Role Phone LILIA WALTON Unavailable LILIA WALTON Primary Care ANTONLILIA Admitting LILIA WALTON Primary Attending ALLERGIES AND ADVERSE REACTIONS ALLERGIES AND ADVERSE REACTIONS Code System Allergy Substance Adverse Reaction Date Reaction (Severity) Comment Status Reported By Updated By [id number] RXNorm MIRAPEX Adverse reaction to substance Not Specified active [id number] on November 27, 2023 2:23:16 PM [facility] MEDICATIONS HOME MEDICATIONS Status RXNORM NDC Medication [...] Description Effective Dates Offered Cessation Comment UpdatedBy [id number] Smoking Status Unknown If Ever Smoked SOCIAL [...] INFORMATION Reason for Visit M72.2 Admission July 25, 2024 7:32:[address] [address] Discharge August 24, 2024 3:59:00 AM UTC DISC HARGED TO HOME OR SELF CARE ENCOUNTER DIAGNOSES Notes information is not abbie ilable. Code System Diagnosis Onset Date Diagnosis information is not available. 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
--- OUTSIDE RECORDS SUMMARY | 2024-09-08 11:10 | XMS_ITS | Data Portability ---
Author Organization [place] - [place]., [place] - [facility] Address [address] [place] [address] Assessment Encounter Date Assessment Date Assessment LastModified by Organization Details LastModified Time 02/27/2024 02/27/2024 Wellness discussed including recommended screenings, vaccines and lifestyle changes including routine exercise 30 minutes 5 times per week and a healthy diet. Labs as outlined per plan below, patient to return when fasting. BP controlled. Tolerating medication regimen without issue. Follow up in 6 months for recheck, sooner if needed BILLING: Correct E&M code is [id number] for this visit. Not available 02/28/2024 11:19:18 07/03/2024 07/03/2024 XR per plan below. Suspect plantar fasciitis has caused additional injury from limping. PT ordered and corticosteroid as prescribed. Follow up in 6-8 weeks to recheck foot, sooner if needed Not available 07/09/2024 13:46:20 08/13/2024 08/13/2024 Medications refilled per plan below. [facility] Labs per plan below - patient to return when fasting. Follow up in 6 months for MWV, sooner if needed Not available 08/13/2024 17:04:11 Plan of Treatment Reminders Order Date Submit Date Provider Last Modified By Organization Details Last Modified Time Details Appointments None recorded. Lab lipid panel, serum 2024 025 MIGUEL [facility] ([place]), [address] [place] [address], [place], [address], 05:06:59 CMP, serum or plasma 2024 025 [facility] ([place]), [address] [place], [address], 5 05:06:59 CBC w/ auto diff 2024 025 [facility] ([place]), [address] [place], [address], 5 05:06:58 lipid panel, serum 2023 024 [facility] ([place]), [address] [place], [address], 4 08:11:52 CMP, serum or plasma 2023 024 [facility] ([place]), [address] [place], [address], 4 08:11:52 CBC w/ auto diff 2023 024 [facility] ([place]), [address] [place], [address], 4 08:11:51 PSA, total, serum or plasma 2023 024 [facility] ([place]), [address] [place], [address], 4 08:11:53 Hepatitis C IgG Ab, qual, serum 2023 024 [facility]), [address] [place], [address], 4 08:11:52 HIV 1 + 2, meaningful use set 2023 024 [facility] ([place]), [address] [place], [address], 4 08:11:53 Referral physical therapist referral - First available - requests his same PT from his shoulder 2024 025 [facility], [address], [place], [address], 09:35:49 Procedures None recorded. Surgeries None recorded. Imaging XR, foot, 3 or more view 2024 025 [email or web address] 7 [facility], [address] [place] [address], [place], [address], 5 11:01:17 Medication Orders Linzess 72 mcg capsule 2024 025 [facility], [address] [place], [address], 5 17:02:33 Savella 50 mg tablet 2024 025 [facility], [facility] [place], [address], 5 13:29:15 prednisone 10 mg tablets in a dose pack 2024 025 [id number], [address], [place], [place], [id number], 5 13:20:31 Carafate 100 mg/mL oral suspension 2023 024 ag24 [id number], [address] [place] [place], [place], [id number], 4 10:52:33 Patient TargetsNo targets recorded. Patient Instructions Encounter Date Encounter Id Patient Instructions Last Modified By Organization Details Last Modified Time 02/06/2024 [id number] influenza (flu) vaccine: care instructions Not available 02/06/2024 16:27:26 02/27/2024 [id number] body mass index: care instructions Not available 02/27/2024 11:15:48 learning about healthy weight Not available 02/27/2024 11:15:47 Reason for Referral Physical Therapist Referral for Plantar fasciitis of right foot First available - requests his same PT from his shoulder Referring Physician: Pippa Pinto, Family Medicine, Encounter Date: 07/03/2024 Results Created Date Observation Date Name Description Value Unit Range Abnormal Flag Note LastModifiedBy Organization Detail LastModifiedTime 01/16/20 24 01/16/2024 fecal occul t blood X 2, stool occult blood negati ve normal Not Available [facility] [address], [place], [address], 01/16/2024 16:02:41 02/29/20 24 03/01/2024 CBC WITH DIFFE RENTI AL/PL ATELE T WBC 8.0 x10e3 /uL 3.4-10 .8 normal Not Available [facility] ([facility]) [address] [place], [address], 03/01/2024 08:11:51 02/29/20 24 03/01/2024 CBC WITH DIFFE RENTI AL/PL ATELE T RBC 6.11 x10e6 /uL 4.14-5 .80 above high normal Not Available [facility] ([facility]) [address] [place], [address], 03/01/2024 08:11:51 02/29/20 24 03/01/2024 CBC WITH DIFFE RENTI AL/PL ATELE T hemoglobin 17.7 g/dL 13.0-1 7.7 normal Not Available [facility] ([facility]) [address] [place], [address], 03/01/2024 08:11:51 02/29/20 24 03/01/2024 CBC WITH DIFFE RENTI AL/PL ATELE T hematocrit 53.9 % 37.5-5 1.0 above high normal Not Available [facility] ([facility]) [address] [place], [address], 03/01/2024 08:11:51 02/29/20 24 03/01/2024 CBC WITH DIFFE RENTI AL/PL ATELE T MCV 88 fL 79-97 normal Not Available [facility] ([facility]) [address] [place], [address], 03/01/2024 08:11:51 02/29/20 24 03/01/2024 CBC WITH DIFFE RENTI AL/PL ATELE T MCH 29.0 pg 26.6-3 3.0 normal Not Available [facility] ([facility]) [address] [place], [address], 03/01/2024 08:11:51 02/29/20 24 03/01/2024 CBC WITH DIFFE RENTI AL/PL ATELE T MCHC 32.8 g/dL 31.5-3 5.7 normal Not Available [facility] ([facility]) [address] [place], [address], 03/01/2024 08:11:51 02/29/20 24 03/01/2024 CBC WITH DIFFE RENTI AL/PL ATELE T RDW 12.8 % 11.6-1 5.4 Not Available [facility] ([facility]) [address] [place], [address], 03/01/2024 08:11:51 02/29/20 24 03/01/2024 CBC WITH DIFFE RENTI AL/PL ATELE T platelets 249 x10e3 /uL 150-45 0 normal Not Available [facility] ([facility]) [address] [place], [address], 03/01/2024 08:11:51 02/29/20 24 03/01/2024 CBC WITH DIFFE RENTI AL/PL ATELE T neutrophils 54 % not estab. normal Not Available [facility] ([facility]) [address] [place], [address], 03/01/2024 08:11:51 02/29/20 24 03/01/2024 CBC WITH DIFFE RENTI AL/PL ATELE T lymphs 35 % not estab. normal Not Available [facility] ([facility]) [address] [facility], [place], [address], 03/01/2024 08:11:51 02/29/20 24 03/01/2024 CBC WITH DIFFE RENTI AL/PL ATELE T monocytes 8 % not estab. normal Not Available [facility] ([facility]) [address] [facility], [place], [address], 03/01/2024 08:11:51 02/29/20 24 03/01/2024 CBC WITH DIFFE RENTI AL/PL ATELE T eos 2 % not estab. normal Not Available [facility] ([facility]) [address] [facility], [place], [address], 03/01/2024 08:11:51 02/29/20 24 03/01/2024 CBC WITH DIFFE RENTI AL/PL ATELE T basos 1 % not estab. normal Not Available [facility] ([facility]) [address] [facility], [place], [address], 03/01/2024 08:11:51 02/29/20 24 03/01/2024 CBC WITH DIFFE RENTI AL/PL ATELE T immature cells RETAIL SUPPORT SPECIALIST Not Available [facility] ([facility]) [address] [place], [address], 03/01/2024 08:11:51 02/29/20 24 03/01/2024 CBC WITH DIFFE RENTI AL/PL ATELE T neutrophils (absolute) 4.3 x10e3 /uL 1.4-7. 0 normal Not Available [facility] ([facility]) [address] [place], [address], 03/01/2024 08:11:51 02/29/20 24 03/01/2024 CBC WITH DIFFE RENTI AL/PL ATELE T lymphs (absolute) 2.8 x10e3 /uL 0.7-3. 1 normal Not Available [facility] ([facility]) [address] [facility], [place], [address], 03/01/2024 08:11:51 02/29/20 24 03/01/2024 CBC WITH DIFFE RENTI AL/PL ATELE T monocytes(ab solute) 0.7 x10e3 /uL 0.1-0. 9 normal Not Available [facility] ([facility]) [address] [facility], [place], [address], 03/01/2024 08:11:51 02/29/20 24 03/01/2024 CBC WITH DIFFE RENTI AL/PL ATELE T eos (absolute) 0.2 x10e3 /uL 0.0-0. 4 normal Not Available [facility] ([facility]) [address] [facility], [place], [address], 03/01/2024 08:11:51 02/29/20 24 03/01/2024 CBC WITH DIFFE RENTI AL/PL ATELE T baso (absolute) 0.1 x10e3 /uL 0.0-0. 2 normal Not Available [facility] ([facility]) [address] [facility], [place], [address], 03/01/2024 08:11:51 02/29/20 24 03/01/2024 CBC WITH DIFFE RENTI AL/PL ATELE T immature granulocytes 0 % not estab. Not Available [facility] ([facility]) [address] [facility], [place], [address], 03/01/2024 08:11:51 02/29/20 24 03/01/2024 CBC WITH DIFFE RENTI AL/PL ATELE T immature grans (abs) 0.0 x10e3 /uL 0.0-0. 1 Not Available [facility] ([facility]) [address] [facility], [place], [address], 03/01/2024 08:11:51 02/29/20 24 03/01/2024 CBC WITH DIFFE RENTI AL/PL ATELE T NRBC RETAIL SUPPORT SPECIALIST Not Available [facility] ([facility]) [address] [facility], [place], [address], 03/01/2024 08:11:51 02/29/20 24 03/01/2024 CBC WITH DIFFE ELOISA ROMERO/AYDEE ATELE T hematology comments: RETAIL SUPPORT SPECIALIST Not Available [facility]) [address] [facility], [place], [address], 03/01/2024 08:11:51 02/29/20 24 03/01/2024 COMP. METAB OLIC PANEL (14) glucose 96 mg/dL 70-99 normal Not Available [facility] ([facility]) [address] [facility], [place], [address], 03/01/2024 08:11:52 02/29/20 24 03/01/2024 COMP. METAB OLIC PANEL (14) BUN 17 mg/dL 8-27 normal Not Available [facility] ([facility]) [address] [facility], [place], [address], 03/01/2024 08:11:52 02/29/20 24 03/01/2024 COMP. METAB OLIC PANEL (14) creatinine 1.00 mg/dL 0.76-1 .27 normal Not Available [facility] ([facility]) [address] [facility], [place], [address], 03/01/2024 08:11:52 02/29/20 24 03/01/2024 COMP. METAB OLIC PANEL (14) eGFR 84 mL/mi n/1.7 3 >59 normal Not Available [facility] ([facility]) [address] [facility] [place], [address], 03/01/2024 08:11:52 02/29/20 24 03/01/2024 COMP. METAB OLIC PANEL (14) BUN/creatini ne ratio 17 10-24 normal Not Available [facility] ([facility]) [address] [facility], [place], [address], 03/01/2024 08:11:52 02/29/20 24 03/01/2024 COMP. METAB OLIC PANEL (14) sodium 141 mmol/ L 134-14 4 normal Not Available [facility] ([facility]) [address] [facility], [address], 03/01/2024 08:11:52 02/29/20 24 03/01/2024 COMP. METAB OLIC PANEL (14) potassium 4.1 mmol/ L 3.5-5. 2 normal Not Available [facility] ([facility]) [address] [place], [address], 03/01/2024 08:11:52 02/29/20 24 03/01/2024 COMP. METAB OLIC PANEL (14) chloride 100 mmol/ L 96-106 normal Not Available [facility] ([facility]) [address] [facility] [place], [address], 03/01/2024 08:11:52 02/29/20 24 03/01/2024 COMP. METAB OLIC PANEL (14) carbon dioxide, total 26 mmol/ L 20-29 normal Not Available [facility] ([facility]) [address] [facility] [place], [address], 03/01/2024 08:11:52 02/29/20 24 03/01/2024 COMP. METAB OLIC PANEL (14) calcium 10.1 mg/dL 8.6-10 .2 normal Not Available [facility] ([facility]) [address] [facility] [place], [address], 03/01/2024 08:11:52 02/29/20 24 03/01/2024 COMP. METAB OLIC PANEL (14) protein, total 7.7 g/dL 6.0-8. 5 normal Not Available [facility] ([facility]) [address] [facility] [place], [address], 03/01/2024 08:11:52 02/29/20 24 03/01/2024 COMP. METAB OLIC PANEL (14) albumin 4.6 g/dL 3.9-4. 9 normal Not Available [facility] ([facility]) [address] [facility] [place], [address], 03/01/2024 08:11:52 02/29/20 24 03/01/2024 COMP. METAB OLIC PANEL (14) globulin, total 3.1 g/dL 1.5-4. 5 Not Available [facility] ([facility]) [address] [facility] [place], [address], 03/01/2024 08:11:52 02/29/20 24 03/01/2024 COMP. METAB OLIC PANEL (14) bilirubin, total 0.4 mg/dL 0.0-1. 2 normal Not Available [facility] ([facility]) [address] [facility] [place], [address], 03/01/2024 08:11:52 02/29/20 24 03/01/2024 COMP. METAB OLIC PANEL (14) alkaline phosphatase 88 IU/L 44-121 normal Not Available [facility]) [address] [facility] [place], [address], 03/01/2024 08:11:52 02/29/20 24 03/01/2024 COMP. METAB OLIC PANEL (14) AST (SGOT) 23 IU/L 0-40 normal Not Available [facility] ([facility]) [address] [facility] [place], [address], 03/01/2024 08:11:52 02/29/20 24 03/01/2024 COMP. METAB OLIC PANEL (14) ALT (SGPT) 25 IU/L 0-44 normal Not Available [facility] ([facility]) [address] [facility] [place], [address], 03/01/2024 08:11:52 02/29/20 24 03/01/2024 LIPID PANEL cholesterol, total 179 mg/dL 100-19 9 normal Not Available [facility] ([facility]) [address] [facility], [place], [address], 03/01/2024 08:11:52 02/29/20 24 03/01/2024 LIPID PANEL triglyceride s 84 mg/dL 0-149 normal Not Available [facility] ([facility]) [address] [facility], [place], [address], 03/01/2024 08:11:52 02/29/20 24 03/01/2024 LIPID PANEL HDL cholesterol 68 mg/dL >39 normal Not Available [facility]) [address] [facility], [place], [address], 03/01/2024 08:11:52 02/29/20 24 03/01/2024 LIPID PANEL VLDL cholesterol elba 15 mg/dL 5-40 Not Available [facility] ([facility]) [address] [facility], [place], [address], 03/01/2024 08:11:52 02/29/20 24 03/01/2024 LIPID PANEL LDL chol calc ([facility]) 96 mg/dL 0-99 Not Available [facility] [address] [facility], [place], [address], 03/01/2024 08:11:52 02/29/20 24 03/01/2024 LIPID PANEL LDL calc comment: RETAIL SUPPORT SPECIALIST Not Available [facility] ([facility]) [address] [facility], [place], [address], 03/01/2024 08:11:52 02/29/20 24 03/01/2024 HCV ANTIB JJ LIZAMA DE(PC R/GEN O) HCV Ab Non Reacti ve non reacti ve Not Available [facility] ([facility]) [address] [facility], [place], [address], 03/01/2024 08:11:52 02/29/20 24 03/01/2024 HCV ANTIB JJ CASCA DE(PC R/GEN O) interpretati on: Commen t Not infec brooke with HCV unles s early or acute infec tion is suspe cted (whic h may be delay ed in an immun ocomp romis ed indiv idual ), or other evide nce exist s to indic ate HCV infec tion. Not Available [facility] ([facility]) [address] [facility], [place], [address], 03/01/2024 08:11:52 02/29/20 24 03/01/2024 PROST ATE-S PECIF IC AG prostate specific Ag 0.3 NG/mL 0.0-4. 0 normal Kelsie ECLIA metho dolog y. Accor ding to the Ameri can [employer] g[employer] iatio n, Serum PSA shoul d decre ase and remai n at undet ectab le level s after radic al prost atect liliana. The AUA defin es bioch emica l recur rence as an initi al PSA value 0.2 ng/mL or great er follo wed by a subse quent confi rmato ry PSA value 0.2 ng/mL or great er. Value s obtai meron with diffe rent assay metho ds or kits canno t be used inter peace eably . Resul ts canno t be inter prete d as absol cory evide nce of the prese nce or absen ce of malig nant disea se. Not Available [facility] ([facility]) [address] [facility], [place], [address], 03/01/2024 08:11:53 02/29/20 24 03/01/2024 HIV AB/P2 4 AG WITH REFLE X HIV Ab/P24 Ag screen Non Reacti ve non reacti ve HIV Negat eliel HIV-1 /HIV- 2 antib odies and HIV-1 p24 antig en were NOT detec brooke. There is no labor atory evide nce of HIV infec tion. Not Available [facility] ([facility]) [address] [facility], [place], [address], 03/01/2024 08:11:53 08/15/19 25 08/15/2024 CBC WITH DIFFE RENTI AL/PL ATELE T WBC 6.3 x10e3 /uL 3.4-10 .8 normal Not Available [facility] ([facility]) [address] [place], [address], 08/15/2024 05:06:58 08/15/19 25 08/15/2024 CBC WITH DIFFE RENTI AL/PL ATELE T RBC 5.69 x10e6 /uL 4.14-5 .80 normal Not Available [facility] ([facility]) [address] [place], [address], 08/15/2024 05:06:58 08/15/19 25 08/15/2024 CBC WITH DIFFE RENTI AL/PL ATELE T hemoglobin 16.3 g/dL 13.0-1 7.7 normal Not Available [facility] ([facility]) [address] [place], [address], 08/15/2024 05:06:58 08/15/19 25 08/15/2024 CBC WITH DIFFE RENTI AL/PL ATELE T hematocrit 50.3 % 37.5-5 1.0 normal Not Available [facility] ([facility]) [address] [place], [address], 08/15/2024 05:06:58 08/15/19 25 08/15/2024 CBC WITH DIFFE RENTI AL/PL ATELE T MCV 88 fL 79-97 normal Not Available [facility] ([facility]) [address] [place], [address], 08/15/2024 05:06:58 08/15/19 25 08/15/2024 CBC WITH DIFFE RENTI AL/PL ATELE T MCH 28.6 pg 26.6-3 3.0 normal Not Available [facility] ([facility]) [address] [place], [address], 08/15/2024 05:06:58 08/15/19 25 08/15/2024 CBC WITH DIFFE RENTI AL/PL ATELE T MCHC 32.4 g/dL 31.5-3 5.7 normal Not Available [facility] ([facility]) [address] [facility], [place], [address], 08/15/2024 05:06:58 08/15/19 25 08/15/2024 CBC WITH DIFFE RENTI AL/PL ATELE T RDW 13.0 % 11.6-1 5.4 Not Available [facility] ([facility]) [address] [facility], [place], [address], 08/15/2024 05:06:58 08/15/19 25 08/15/2024 CBC WITH DIFFE RENTI AL/PL ATELE T platelets 209 x10e3 /uL 150-45 0 normal Not Available [facility] ([facility]) [address] [facility], [place], [address], 08/15/2024 05:06:58 08/15/19 25 08/15/2024 CBC WITH DIFFE RENTI AL/PL ATELE T neutrophils 50 % not estab. normal Not Available [facility] ([facility]) [address] [place], [address], 08/15/2024 05:06:58 08/15/19 25 08/15/2024 CBC WITH DIFFE RENTI AL/PL ATELE T lymphs 36 % not estab. normal Not Available [facility] ([facility]) [address] [place], [address], 08/15/2024 05:06:58 08/15/19 25 08/15/2024 CBC WITH DIFFE RENTI AL/PL ATELE T monocytes 10 % not estab. normal Not Available [facility] ([facility]) [address] [place], [address], 08/15/2024 05:06:58 08/15/19 25 08/15/2024 CBC WITH DIFFE RENTI AL/PL ATELE T eos 3 % not estab. normal Not Available [facility] ([facility]) [address] [place], [address], 08/15/2024 05:06:58 08/15/19 25 08/15/2024 CBC WITH DIFFE RENTI AL/PL ATELE T basos 1 % not estab. normal Not Available [facility] ([facility]) [address] [place], [address], 08/15/2024 05:06:58 08/15/19 25 08/15/2024 CBC WITH DIFFE RENTI AL/PL ATELE T immature cells RETAIL SUPPORT SPECIALIST Not Available [facility] ([facility]) [address] [place], [address], 08/15/2024 05:06:58 08/15/19 25 08/15/2024 CBC WITH DIFFE RENTI AL/PL ATELE T neutrophils (absolute) 3.2 x10e3 /uL 1.4-7. 0 normal Not Available [facility] ([facility]) [address] [place], [address], 08/15/2024 05:06:58 08/15/19 25 08/15/2024 CBC WITH DIFFE RENTI AL/PL ATELE T lymphs (absolute) 2.3 x10e3 /uL 0.7-3. 1 normal Not Available [facility] ([facility]) [address] [place], [address], 08/15/2024 05:06:58 08/15/19 25 08/15/2024 CBC WITH DIFFE RENTI AL/PL ATELE T monocytes(ab solute) 0.6 x10e3 /uL 0.1-0. 9 normal Not Available [facility] ([facility]) [address] [place], [address], 08/15/2024 05:06:58 08/15/19 25 08/15/2024 CBC WITH DIFFE RENTI AL/PL ATELE T eos (absolute) 0.2 x10e3 /uL 0.0-0. 4 normal Not Available [facility] ([facility]) [address] [facility], [place], [address], 08/15/2024 05:06:58 08/15/19 25 08/15/2024 CBC WITH DIFFE RENTI AL/PL ATELE T baso (absolute) 0.0 x10e3 /uL 0.0-0. 2 normal Not Available [facility] ([facility]) [address] [facility], [place], [address], 08/15/2024 05:06:58 08/15/19 25 08/15/2024 CBC WITH DIFFE RENTI AL/PL ATELE T immature granulocytes 0 % not estab. Not Available [facility] ([facility]) [address] [facility], [place], [address], 08/15/2024 05:06:58 08/15/19 25 08/15/2024 CBC WITH DIFFE RENTI AL/PL ATELE T immature grans (abs) 0.0 x10e3 /uL 0.0-0. 1 Not Available [facility] ([facility]) [address] [facility], [place], [address], 08/15/2024 05:06:58 08/15/19 25 08/15/2024 CBC WITH DIFFE RENTI AL/PL ATELE T NRBC RETAIL SUPPORT SPECIALIST Not Available [facility] ([facility]) [address] [facility], [place], [address], 08/15/2024 05:06:58 08/15/19 25 08/15/2024 CBC WITH DIFFE RENTI AL/PL ATELE T hematology comments: RETAIL SUPPORT SPECIALIST Not Available [facility]) [address] [facility], [place], [address], 08/15/2024 05:06:58 08/15/19 25 08/15/2024 COMP. METAB OLIC PANEL (14) glucose 105 mg/dL 70-99 above high normal Not Available [facility] ([facility]) [address] [place], [address], 08/15/2024 05:06:58 08/15/19 25 08/15/2024 COMP. METAB OLIC PANEL (14) BUN 9 mg/dL 8-27 normal Not Available [facility] ([facility]) [address] [place], [address], 08/15/2024 05:06:58 08/15/19 25 08/15/2024 COMP. METAB OLIC PANEL (14) creatinine 0.95 mg/dL 0.76-1 .27 normal Not Available [facility] ([facility]) [address] [place], [address], 08/15/2024 05:06:58 08/15/19 25 08/15/2024 COMP. METAB OLIC PANEL (14) eGFR 89 mL/mi n/1.7 3 >59 normal Not Available [facility] ([facility]) [address] [place], [address], 08/15/2024 05:06:58 08/15/19 25 08/15/2024 COMP. METAB OLIC PANEL (14) BUN/creatini ne ratio 9 10-24 below low normal Not Available [facility] ([facility]) [address] [place], [address], 08/15/2024 05:06:58 08/15/19 25 08/15/2024 COMP. METAB OLIC PANEL (14) sodium 142 mmol/ L 134-14 4 normal Not Available [facility] ([facility]) [address] [place], [address], 08/15/2024 05:06:58 08/15/19 25 08/15/2024 COMP. METAB OLIC PANEL (14) potassium 4.5 mmol/ L 3.5-5. 2 normal Not Available [facility] ([facility]) [address] [facility] [place], [address], 08/15/2024 05:06:58 08/15/19 25 08/15/2024 COMP. METAB OLIC PANEL (14) chloride 104 mmol/ L 96-106 normal Not Available [facility] ([facility]) [address] [facility] [place], [address], 08/15/2024 05:06:58 08/15/19 25 08/15/2024 COMP. METAB OLIC PANEL (14) carbon dioxide, total 24 mmol/ L 20-29 normal Not Available [facility] ([facility]) [address] [facility] [place], [address], 08/15/2024 05:06:58 08/15/19 25 08/15/2024 COMP. METAB OLIC PANEL (14) calcium 9.8 mg/dL 8.6-10 .2 normal Not Available [facility] ([facility]) [address] [facility] [place], [address], 08/15/2024 05:06:58 08/15/19 25 08/15/2024 COMP. METAB OLIC PANEL (14) protein, total 6.9 g/dL 6.0-8. 5 normal Not Available [facility] ([facility]) [address] [facility] [place], [address], 08/15/2024 05:06:58 08/15/19 25 08/15/2024 COMP. METAB OLIC PANEL (14) albumin 4.1 g/dL 3.9-4. 9 normal Not Available [facility] ([facility]) [address] [facility] [place], [address], 08/15/2024 05:06:58 08/15/19 25 08/15/2024 COMP. METAB OLIC PANEL (14) globulin, total 2.8 g/dL 1.5-4. 5 Not Available [facility] ([facility]) [address] [place], [address], 08/15/2024 05:06:58 08/15/19 25 08/15/2024 COMP. METAB OLIC PANEL (14) bilirubin, total 0.5 mg/dL 0.0-1. 2 normal Not Available [facility] ([facility]) [address] [facility] [place], [address], 08/15/2024 05:06:58 08/15/19 25 08/15/2024 COMP. METAB OLIC PANEL (14) alkaline phosphatase 89 IU/L 44-121 normal Not Available [facility] ([facility]) [address] [place], [address], 08/15/2024 05:06:58 08/15/19 25 08/15/2024 COMP. METAB OLIC PANEL (14) AST (SGOT) 29 IU/L 0-40 normal Not Available [facility] ([facility]) [address], [id number], 08/15/2024 05:06:58 08/15/19 25 08/15/2024 COMP. METAB OLIC PANEL (14) ALT (SGPT) 24 IU/L 0-44 normal Not Available [facility] ([facility]) [address] [facility] [place], [address], 08/15/2024 05:06:58 08/15/19 25 08/15/2024 LIPID PANEL cholesterol, total 177 mg/dL 100-19 9 normal Not Available [facility] ([facility]) [address], [address], 08/15/2024 05:06:59 08/15/19 25 08/15/2024 LIPID PANEL triglyceride s 131 mg/dL 0-149 normal Not Available [facility] ([facility]) [address] [facility] [place], [address], 08/15/2024 05:06:59 08/15/19 25 08/15/2024 LIPID PANEL HDL cholesterol 53 mg/dL >39 normal Not Available [facility] ([facility]) [address] [place], [address], 08/15/2024 05:06:59 08/15/19 25 08/15/2024 LIPID PANEL VLDL cholesterol elba 23 mg/dL 5-40 Not Available [facility] ([facility]) [address] [place], [address], 08/15/2024 05:06:59 08/15/19 25 08/15/2024 LIPID PANEL LDL chol calc ([facility]) 101 mg/dL 0-99 above high normal Not Available [facility] ([facility]) [address] [place], [address], 08/15/2024 05:06:59 08/15/19 25 08/15/2024 LIPID PANEL LDL calc 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 [email or web address] [place] [address], [phone], 07/16/2024 10:49:14 07/24/19 25 07/23/2024 XR, lumbo sacra l spine , 2 or 3 view No observ ation record ed. [address], [place], [address], 07/23/2024 15:24:24 07/24/19 25 07/23/2024 XR, hip, unila teral , 2 or 3 view No observ ation record ed. [address], [place], [address], 07/23/2024 15:23:27 Result Notes None recorded. Problems Name Problem SNOMED Code Status Onset Date Resolution Date Notes Provider Name and Address Organization Details Recorded Time Cervical radiculo ron 78007743 Active 2023 Pippa Pinto NP [address] [place] [address], [address] , [employer] 10:49:39 Lumbar spondylo sis 259796267 Active 2023 Pippa Pinto NP [address] [place] [address], [address] , [employer] 10:49:59 Degenera tion of cervical interver tebral disc 41713715 Active 2023 Pippa Pinto NP [address] [place] [address], [address] , [employer] 10:50:17 Hematoch ezia 919944477 Completed 202307/03/2024 Pippa Pinto NP [address] [place] [address], [address] , [employer] 5 09:54:15 History of bypass of stomach 814070877 Active 2023 Pippa Pinto NP [address] [place] [address], [address] , [employer] 12:06:46 Gastroes ophageal reflux disease without esophagi tis 300480232 Active 2023 Pippa Pinto NP [address] [place] [address], [address] , [employer] 12:47:55 Major depressi ve disorder 170512091 Active 2023 Pippa Pinto NP [address] [place] [address], [address] , [employer] 12:47:58 Benign prostati c hyperpla rina 266319985 Active 2023 Pippa Pinto NP [address] [place] [address], [address] , [employer] 5 09:54:16 Pain in right foot 09440541431 9107 Active 2024 Pippa Pinto NP [address] [place] [address], [address] , [employer] 5 10:03:17 Plantar fasciiti s of right foot 78697045432 765709 Active 2024 Pippa Pinto NP [address] [place] [address], [address] , [employer] 5 10:03:22 Constipa tion 04591687 Active 2024 Pippa Pinto NP [address] [place] [address], [address] [place] [address] , [employer] 5 13:24:14 Mixed hyperlip idemia 077234428 Active 2018 Problem Code: E78.2; Problem Code Type: ICD-10; Not Available [facility] 2 22:40:08 Hyperten sive disorder 82123256 Active 2018 Problem Code: I10; Problem Code Type: ICD-10; Not Available [facility] 2 22:40:08 Allergic contact dermatit is caused by plant material [id number] 731090 Completed 201911/28/2023 Problem Code: L23.7; Problem Code Type: ICD-10; Pippa Pinto NP [address] [place] [address], [address] , [employer] 4 11:53:26 Contact dermatit is caused by plants 568072274 Completed 201911/28/2023 Problem Code: L25.5; Problem Code Type: ICD-10; Pippa Pinto NP [address] [place] [address], [address] , [employer] 4 10:49:30 Itching 652197271 Completed 201911/28/2023 Problem Code: L29.9; Problem Code Type: ICD-10; Pippa Pinto NP [address] [place] [address], [address] , [employer] 4 10:49:32 Patellof emoral osteoart hritis 360018886 Active 2018 Problem Code: M17.12; Problem Code Type: ICD-10; Not Available [facility] 2 22:40:08 Fibromya lgia 323165812 Active 2018 Problem Code: M79.7; Problem Code Type: ICD-10; Not Available [facility] 2 22:40:08 Abnormal finding on evaluati on procedur e 310678010 Completed 201911/28/2023 Pippa Pinto NP [address] [place] [address], [address] , [employer] 4 11:53:21 Pre-surg barry evaluati on Active 2018 Not Available [facility] 2 22:40:09 Influenz a vaccine needed 37883945389 06 Completed 201804/25/2019 Problem Code: Z23; Problem Code Type: ICD-10; Not Available [facility] 2 22:40:09 Aftercar e Completed 201811/28/2023 Pippa Pinto NP [address] [place] [address], [address] , [employer] 4 11:53:23 Finding of body mass index 463888474 Completed 201911/28/2023 Problem Code: Z68.41; Problem Code Type: ICD-10; Pippa Pinto NP [address] [place] [address], [address] , [employer] 4 11:53:42 Current drug user 464298655 Completed 201911/28/2023 Problem Code: Z79.899; Problem Code Type: ICD-10; Pippa Pinto NP [address] [place] [address], [address] , [employer] 11:53:35 Finding related to ability to pass urine 617651753 Completed 201807/03/2024 Pippa Pinto, SHARLENE [address] [place] [address], [address] , [employer] 09:54:07 Problem Notes None recorded. Procedures Surgical History Date Name Laterality Status Provider Name and Address Organization Details Recorded Time 03/03/20 19 Total knee arthroplasty completed Not Available [facility] 11/29/2021 22:56:23 01/25/20 19 cholecystectomy completed Not Available [facility] 11/29/2021 22:56:23 Back Surgery completed [employer] 11/28/2023 11:49:46 Gastric Bypass completed [employer] 11/28/2023 11:49:46 Joint Replacement completed [employer] 11/28/2023 11:49:46 Neurosurgery completed [employer] 11/28/2023 11:49:46 Vasectomy completed [employer] 11/28/2023 11:49:46 Gallbladder Surgery completed [facility] 11/28/2023 11:49:46 Imaging Results None recorded. Procedure Notes None recorded. Medical Equipment None Reported. Allergies No known drug allergies Medications Name Sig Start Date Stop Date Status Note LastModified by Organization Details LastModified Time prednisone 10 mg tablet take 1 tablet (10 mg) by oral route 3 times per day x3 days 11/26 completed Not Available Not Available Not Available Carafate 100 mg/mL oral suspension Take 10 mL every day by oral route as needed, for GERD. 2023 active Not Available Not Available Not Avai lable triamcinolo ne acetonide 0.5 % topical cream apply a thin layer to the affected area(s) by topical route 2 times per day 11/26 completed Not Available Not Available Not Available pravastatin 40 mg tablet take 1 tablet (40 mg) by oral route once daily at bedtime 11/26 completed Not Available Not Available Not Available metoprolol succinate ER 50 mg tablet,exte nded release 24 hr TAKE 1 TABLET DAILY FOR BLOOD PRESSURE 2023 active Not Available Not Available Not Avai lable famotidine 40 mg tablet TAKE 1 TABLET TWICE A DAY 11/26 completed Not Available Not Available Not Available Medrol (Minh) 4 mg tablets in a dose pack take by oral route as directed per package instructi ons 11/16 completed Not Available Not Available Not Available triamcinolo ne acetonide 0.1 % topical cream apply a thin layer to the affected area(s) by topical route 2 times per day 11/26 completed Not Available Not Available Not Available prednisone 10 mg tablets in a dose pack FOLLOW PACKAGE DIRECTION S 08/13 completed Not Available Not Available Not Available tamsulosin 0.4 mg capsule take 2 capsules (0.8 mg) by oral route once daily 1/2 hour following the same meal each day 2023 active Not Available Not Available Not Avai lable gabapentin 800 mg tablet take 1 tablet (800 mg) by oral route at bedtime 11/26 completed Not Available Not Available Not Available trazodone 100 mg tablet TAKE 1 TABLET DAILY AT BEDTIME 11/26 completed Not Available Not Available Not Available pantoprazol e 40 mg tablet,jono yed release TAKE 1 TABLET DAILY 2023 active Not Available Not Available Not Avai lable Aspir-81 mg tablet,jono yed release take 1 tablet (81 mg) by oral route once daily 2018 active Not Available Not Available Not Avai lable finasteride 5 mg tablet TAKE 1 TABLET DAILY 2023 active Not Available Not Available Not Avai lable rosuvastati n 20 mg tablet TAKE 1 TABLET DAILY AT BEDTIME FOR CHOLESTER OL 2024 active Not Available Not Available Not Avai lable pregabalin 50 mg capsule TAKE 1 CAPSULE BY MOUTH EVERY NIGHT AT BEDTIME active Not Available Not Available No t Available oxycodone 10 mg tablet take 1 tablet (10 mg) by oral route every 6 hours for pain 11/26 completed Not Available Not Available Not Available diclofenac 1 % topical gel apply 2 gram to the affected area(s) by topical route 2 TIMES A DAY 2019 active Not Available Not Available Not Avai lable Savella 50 mg tablet Take 1 tablet by oral route 2 times per day 2024 active Not Available Not Available Not Avai lable Linzess 72 mcg capsule 2024 active Not Available Not Available Not Avai lable Vitals Date Recorded Body height Body mass index (BMI) Body weight Heart rate Oxygen saturation Oxygen saturation in Arterial blood by Pulse oximetry Systolic blood pressure Diastolic blood pressure Provider Name and Address Organization Details Last Updated DateTime 5 175.26 cm 42.7 kg/m2 011646. 29 g 92 /min 94 % 94 % 138 mm[Hg] 84 mm[Hg] [facility] 5 09:48:46 Date Recorded Body height Body mass index (BMI) Body weight Heart rate Oxygen saturation Oxygen saturation in Arterial blood by Pulse oximetry Systolic blood pressure Diastolic blood pressure Provider Name and Address Organization Details Last Updated DateTime 5 175.26 cm 43 kg/m2 562375. 08 g 78 /min 94 % 94 % 138 mm[Hg] 86 mm[Hg] [facility] 5 13:17:12 Date Recorded Body height Body mass index (BMI) Body weight Heart rate Oxygen saturation Oxygen saturation in Arterial blood by Pulse oximetry Systolic blood pressure Diastolic blood pressure Provider Name and Address Organization Details Last Updated DateTime 4 175.26 cm 41.9 kg/m2 178394. 23 g 82 /min 96 % 96 % 125 mm[Hg] 86 mm[Hg] [facility] 4 10:43:08 Social History Question Answer Notes LastModified by Organizat ion Details LastModified Time Tobacco Smoking Status Former Smoker SocialHis toryQuest ion: 'Tobacco/ Alcohol/S upplement s'; SocialHis toryRespo nse: 'Former Smoker'; Not Available [facility] 11/29/2021 23:01:15 Do You Have An Advance Directive? Yes [email or web address] Information not available 11/28/2023 Is Your Home Air Conditioned? Yes [email or web address] Information not available 11/28/2023 Do You Wear A Helmet When Biking? No [email or web address] Information not available 11/28/2023 Are You Blind Or Do You Have Difficulty Seeing? No Information not available 11/28/2023 What Is Your Level Of Caffeine Consumption? Moderate [email or web address] Information not available 11/28/2023 What Type Of Apprentice Painter Neckties Do You Use? None [email or web address] Information not available 11/28/2023 In The 14 Days Before Symptom Onset, Have You Had Close Contact With A Laboratory-confir med COVID-19 While That Case Was Ill? No Information not available 11/28/2023 In The 14 Days Before Symptom Onset, Have You Had Close Contact With A Person Who Is Under Investigation For COVID-19 While That Person Was Ill? No [email or web address] Information not available 11/28/2023 Have You Been To An Area Known To Be High Risk For COVID-19? No [email or web address] Information not available 11/28/2023 Are You Deaf Or Do You Have Serious Difficulty Hearing? No [email or web address] Information not available 11/28/2023 What Type Of Diet Are You Following? REGULAR [email or web address] Information not available 11/28/2023 What Is The Highest Grade Or Level Of School You Have Completed Or The Highest Degree You Have Received? [id number] [email or web address] Information not available 11/28/2023 How Many Days Of Moderate To Strenuous Exercise, Like A Brisk Walk, Did You Do In The Last 7 Days? 7 [email or web address] Information not available 11/28/2023 Have There Been Any Changes To Your Family Or Social Situation? No [email or web address] Information no t available 11/28/2023 When Did You Quit Smoking? 16+yearssinc elastcigaret te [email or web address] Information not available 11/28/2023 Are There Any Guns Present In Your Home? No [email or web address] Information not available 11/28/2023 Which Of Your Hands Is Dominant? Right Information not available 11/28/2023 What Is Your Home Situation? Both Parents [email or web address] Information not available 11/28/2023 Do You Have A Medical Power Of Child Care Giver? No [email or web address] Information not available 11/28/2023 What Was The Date Of Your Most Recent Tobacco Screening? 08/13/2024 [email or web address] Information not available 08/13/2024 Do You Have Any Pets? Yes [email or web address] Information not available 11/28/2023 Do You Use Protection During Sex? No [email or web address] Information not available 11/28/2023 What Is Your Relationship Status? Information not available 11/28/2023 Have You Repeated Any Grades? No [email or web address] Information not available 11/28/2023 Do You Use Your Seat Belt Or Car Seat Routinely? Yes [email or web address] Information not available 11/28/2023 Are You Sexually Active? Yes [email or web address] Information not available 11/28/2023 Do You Have Any Siblings? 5 Information not available 11/28/2023 Do You Have Smoke And Carbon Monoxide Detectors In Your Home? Yes [email or web address] Information not available 11/28/2023 At What Age Did You Start Smoking Tobacco? 11 [email or web address] Information not available 11/28/2023 Are You Passively Exposed To Smoke? No Information no t available 11/28/2023 Are There Any Smokers In Your House? No [email or web address] Information not available 11/28/2023 How Much Tobacco Do You Smoke? No [email or web address] Information not available 11/28/2023 Do You Participate In Social Media? Yes [email or web address] Information not available 11/28/2023 What Types Of Sporting Activities Do You Participate In? Walk One Mile A Day In 23 Minutes [email or web address] Information not available 11/28/2023 Do You Use Sunscreen Routinely? No Information not available 11/28/2023 Has Tobacco Cessation Counseling Been Provided? No [email or web address] Information not available 11/28/2023 How Many Years Have You Smoked Tobacco? 27 Information not available 11/28/2023 Have You Recently Traveled Abroad? No Information not available 11/28/2023 Do You Have Difficulty Walking Or Climbing Stairs? No [email or web address] Information not available 11/28/2023 Are You Currently In School? No [email or web address] Information not available 11/28/2023 Do You Have Any Dietary Restrictions? No Information not available 11/28/2023 Sex: Unknown Functional Status Question Answer Note LastModified by Organizat ion Details LastModified Time Do you use any illicit or recreational drugs? No Information not available 11/28/2023 Do you or have you ever used any other forms of tobacco or nicotine? No Information not available 11/28/2023 What is your level of alcohol consumption? None Information not available 11/28/2023 Are you currently employed? No Information not available 11/28/2023 Do you have transportation difficulties? No Information not available 11/28/2023 Do you have difficulty doing errands alone? No [email or web address] Information not available 11/28/2023 Are you able to care for yourself? Yes [email or web address] Information not available 11/28/2023 Do you have difficulty dressing or bathing? No [email or web address] Information not available 11/28/2023 What is your exercise level? Moderate [email or web address] Information not available 11/28/2023 Mental Status Question Answer Note LastModified by Organizat [employer] Details LastModified Time Do you feel stressed (tense, restless, nervous, or anxious, or unable to sleep at night)? [id number] [email or web address] Information not available 11/28/2023 Do you have difficulty concentrating, remembering or making decisions? No [email or web address] Information no t available 11/28/2023 Are you or have you been involved with bullying? No [email or web address] Information not available 11/28/2023 Family History Relationship Description Onset Age of this Age Resolved Age Notes LastModified by Organization Details LastModified Time Unspecified Relation Family history of Hypertension Relati ve: ''; Not available 11/28/2023 11:49:44 Unspecified Relation Family history of Depression Relati ve: ''; [email or web address] Not available 11/28/2023 11:49:44 Unspecified Relation Family history of malignant neoplasm Relati ve: ''; [email or web address] Not available 11/28/2023 11:49:44 Unspecified Relation Family history of malignant neoplasm Relati ve: ''; Not available 11/28/2023 11:49:44 Unspecified Relation Harmful pattern of use of alcohol Not available 2023 11:49:44 Mother Arthritis Not availab le 11/28/2023 11:49:44 Mother Hypertensive disorder [email or web address] Not available 2023 11:49:44 Sister Malignant neoplasm of lung [email or web address] Not available 2023 11:49:44 Sister Hypertensive disorder [email or web address] Not available 2023 11:49:44 Paternal Grandfather Harmful pattern of use of alcohol [email or web address] Not available 2023 11:49:44 Paternal Grandfather Malignant neoplasm of lung [email or web address] Not available 2023 11:49:44 Father Malignant neoplasm of lung [email or web address] Not available 2023 11:49:44 Notes:*Procedure Description : Documented family medical history in mother*Relative: Mother *Procedure Description: Documented family medical history in sister*Relative: Sister *Procedure Description: Documented family medical history in brother*Relative: Brother Medical History Condition Response Hospitalizations N Acid Reflux (GERD) Y Emergency room visit since last appointm ent. N Fibromyalgia Y Hypertension Y High Cholesterol Y Immunizations Vaccine Type Date Status Note Provider Nam e and Address Organization Details Recorded Time Influenza, split virus, trivalent, PF 4 completed Pippa Pinto, SHARLENE [address] [place], [address], [employer] 02/06/2024 16:27:28 Influenza, MDCK, quadrivalent, preservative 9 completed Not Available [facility] 11/29/2021 23:54:26 COVID-19, mRNA, LNP-S, PF, joshua-sucrose, 30 mcg/0.3 mL 4 completed Florencia mills, [employer] 02/22/2024 12:02:48 RSV, recombinant, protein subunit RSVpreF, adjuvant reconstituted, 0.5 mL, PF 4 completed Florencia mills, [employer] 02/22/2024 12:03:37 Influenza, recombinant, quadrivalent, PF 2 completed Pippa Pinto NP [address] [place], [address], [employer] 02/27/2024 10:48:15 Influenza, recombinant, quadrivalent, PF 2 completed Pippa Pinto, SHARLENE [address] [place] [address], [address], [employer] 02/27/2024 10:48:15 zoster recombinant 2 completed Pippa Pinto NP [address] [place] [address], [address], [employer] 02/27/2024 10:48:15 zoster recombinant 2 completed Pippa Pinto NP [address] [place] [address], [address], [employer] 02/27/2024 10:48:15 COVID-19, mRNA, LNP-S, PF, 100 mcg/0.5mL dose or 50 mcg/0.25mL dose 1 completed Pippa Pinto NP [address] [place] [address], [address], [employer] 02/27/2024 10:48:15 COVID-19, mRNA, LNP-S, PF, 100 mcg/0.5mL dose or 50 mcg/0.25mL dose 1 completed Pippa Pinto NP [address] [place] [address], [address], [employer] 02/27/2024 10:48:15 COVID-19, mRNA, LNP-S, PF, 30 mcg/0.3 mL dose 1 completed Pippa Pinto NP [address] [place] [address], [address], [employer] 02/27/2024 10:48:15 Pneumococcal conjugate PCV20, polysaccharide [id number] conjugate, adjuvant, PF 2 completed Pippa Pinto NP [address] [place] [address], [address], [employer] 02/27/2024 10:48:15 COVID-19, mRNA, LNP-S, PF, 30 mcg/0.3 mL dose, joshua-sucrose 2 completed Pippa Pinto, RETAIL SUPPORT SPECIALIST [address] [place] [address], [address], [employer] 02/27/2024 10:48:15 COVID-19, mRNA, LNP-S, bivalent, PF, 30 mcg/0.3 mL dose 2 completed Pippa Pinto, RETAIL SUPPORT SPECIALIST [address] [place] [address], [address], [employer] 02/27/2024 10:48:15 RSV, recombinant, protein subunit RSVpreF, adjuvant reconstituted, 0.5 mL, PF 3 completed Pippa Pinto, RETAIL SUPPORT SPECIALIST [address] [place] [address], [address], [employer] 02/27/2024 10:48:15 COVID-19, mRNA, LNP-S, PF, 50 mcg/0.5 mL 3 completed Pippa Pinto, RETAIL SUPPORT SPECIALIST [address] [place] [address], [address], [employer] 02/27/2024 10:48:15 Tdap 2 completed Pippa Pinto, RETAIL SUPPORT SPECIALIST [address] [place] [address], [address], [employer] 02/27/2024 10:48:15 Influenza, split virus, trivalent, PF 8 completed Pippa Pinto, RETAIL SUPPORT SPECIALIST [address] [place] [address], [address], [employer] 02/27/2024 10:48:15 Hep B, adult 9 completed Pippa Pinto, RETAIL SUPPORT SPECIALIST [address] [place] [address], [address], [employer] 02/27/2024 10:48:15 DTaP 8 completed Pippa Pinto, RETAIL SUPPORT SPECIALIST [address] [place] [address], [address], [employer] 02/27/2024 10:48:15 Influenza, split virus, quadrivalent, PF 3 completed Pippa Pinto, SHARLENE [address] [place] [address], [address], [employer] 02/27/2024 10:48:15 Hep A-Hep B 9 completed Pippa Pinto, RETAIL SUPPORT SPECIALIST [address] [place] [address], [address], [employer] 02/27/2024 10:48:15 Hep A-Hep B 8 completed Pippa Pinto, SHARLENE [address] [place] [address], [address], [employer] 02/27/2024 10:48:15 Past Encounters Encounter ID Performer Location Encounter Start Date Encounter Closed Date Diagnosis/Indication Diagnosis SNOMED-CT Code Diagnosis ICD10 Code Diagnosis Note [id number] Pippa Pinto NP [place] [address] 11/28/2023 10:45:20 11/28/2023 13:08:58 Hematochezia 178167157 K92.1 Degenerati on of cervical intervertebral disc 96908925 M50.30 Hypertensive disorder 38 807125 I10 Mixed hyperlipidemia 267 255552 E78.2 Fibromyalgia 390247795 M 79.7 [id number] Pippa Pinto NP [place] [address] 02/06/2024 08:48:07 02/06/2024 09:48:45 Administration of influenza vaccine 40196970 Z23 [id number] Pippa Pinto NP [place] [address] 02/22/2024 08:49:49 02/22/2024 11:25:35 Active or passive immunization 536555860 Z23 [id number] Pippa Pinto NP [place] [address] 02/27/2024 10:26:13 02/27/2024 11:30:19 Mixed hyperlipidemia 750831142 E78.2 Hypertensive disorder 38 287168 I10 Screening for malignant neoplasm of prostate 584370155 Z12.5 Hepatitis C screening 41 6883205 Z11.59 HIV screening 874425064 Z11.4 Body mass index 40+ - severely obese 528894285 Z68.41 Adult heal th examination 177029839 Z00.00 Gastroesop hageal reflux disease without esophagitis 642456183 K21.9 [id number] Pippa Pinto NP [place] [address] 07/03/2024 09:30:09 07/03/2024 10:24:07 Pain in right foot 3669659966 00573 M79.671 Plantar fa sciitis of right foot 7883188716 5589860 M72.2 [id number] Pippa Pinto NP [place] [address] 08/13/2024 12:55:26 08/13/2024 13:50:49 Constipation 89830667 K59.00 Hypertensive disorder 38 100903 I10 Gastroesop hageal reflux disease without esophagitis 582776006 K21.9 Mixed hyperlipidemia 267 579190 E78.2 Benign pro static hyperplasia 430142942 N40.1 Major depr essive disorder 344655347 F32.9 Health Concerns Section Related Observation LastModified by Organization Detai ls LastModified Time None Recorded Concern Status LastModified by Organization Details LastModified Time None Recorded Advance Directives Directive Y: Payers Insurance Date Sequence Insurance Name Policy Number Policy Zarate Covered Member ID Zarate Member ID Guarantor Name 08/10/2024 1 [place] G[employer] Gr[employer] [id number] G[employer] Grimes 08/10/2024 2 FOR LIFE () Gt Grimes [id number] Gt Grimes 08/10/2024 [place] [employer] [facility] Gt Grimes [id number] G[employer] Gr[employer] Notes Date Note Type Note Provider Name and Address Organization Details Recorded Time 02/27/2024 text/html Medicare Annual Wellness VisitReported bypatient.Diet and Nutrition:discussed vitamin and supplement use; discussed portion control Fracture Risk:no recent explained fracture Physical Activity:discussed weightbearing activities; discussed exercise habits Depression Risk:never feels sad, empty, or tearful; no loss of interest in activities; no thoughts of suicide;history of depression Orientation:no disorientation to time; no disorientation to date; no disorientation to place Speech/Motor difficulties:no speech difficulties Vision:no vision problems (sees eye physician) Activities of Daily Living:able to bathe with limited or no assistance; able to contol urination and bowels; able to dress with limited or no assistance; able to feed self with limited or no assistance; able to get out of chair or bed with limited or no assistance; able to groom with limited or no assistance; able to toilet with limited or no assistance Instrumental Activities of Daily Living:able to do house work with limited or no assistance; able to grocery shop with limited or no assistance; able to manage medications with limited or no assistance; able to manage money with limited or no assistance; able to prepare meals with limited or no assistance; able to use the phone with limited or no assistance Falls Risk Assessment:no frequent falls while walking; no fall in the past year Home Safety:no unsafe stairs; working smoke/CO detectors; use of seatbelts; no fire arms Patient presents for MWV and follow up. Had an injection in his back yesterday at pain management. States that it has not made a difference yesterday. Follows up in 2 weeks with their office.Does vape THC.No concerns today.Working up with gastro currently - taking miralax and fiber.Taking medications as prescribed. Pippa Pinto NP [address] [place], [address], [employer], [employer] 02/28/2024 11:19:23 07/03/2024 text/html Patient presents for evaluation of right foot pain. Ongoing right foot pain x 1 year. Much worse in the last 6 months or so. States no specific injury. Worst when he first gets up in the morning or if he walks on it all day. It starts at pedal heel and radiates across lateral side of foot. No erythema or warmth. Pippa Pinto NP [address] [place], [address], [employer] 07/09/2024 13:46:56 08/13/2024 text/html Patient presents for follow up on foot pain. States that he sees podiatry at on 09/25.Has been prescribed linzess by gastroenterology, but they did not give him refills. Needs RF. Linzess is working well.Taking medications as prescribed. Pippa Pinto NP [address] [place] [address], [place], [address], [facility] [employer] 08/13/2024 17:05:01
--- OUTSIDE RECORDS SUMMARY | 2024-09-08 11:10 | XMS_ITS | Clinical Summary ---
Author Organization 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 diclofenac (VOLTAREN) 1 % Top GelIndications:A rthritis, multiple joint involvement Apply 4 g topically 4 times daily. As needed for arthritis pain 450 g 3 3 Active sucralfate (CARAFATE) 100 mg/mL Oral SuspensionIndica tions:Gastroesop hageal reflux disease, unspecified whether esophagitis present TAKE 10 ML FOUR TIMES A DAY NEEDED FOR PAIN Strength: 100 mg/mL 3600 mL 3 Active aspirin 81 mg Oral Tablet, Chewable Take 81 mg by mouth daily. Active metoprolol succinate (TOPROL-XL) 50 mg Oral Tablet Sustained Release 24 hrIndications:Es sential hypertension TAKE 1 TABLET DAILY 90 Tablet 3 4 Active SAVELLA 50 mg Oral TabletIndication s:Fibromyalgia TAKE 1 TABLET TWICE A DAY 180 Tablet 3 4 Active rosuvastatin (CRESTOR) 20 mg Oral TabletIndication s:Hyperlipidemia with target LDL less than 100 TAKE 1 TABLET NIGHTLY 90 Tablet 3 4 Active finasteride (PROSCAR) 5 mg Oral TabletIndication s:BPH with urinary obstruction Take 1 Tablet by mouth daily. 90 Tablet 1 4 Active tamsulosin (FLOMAX) 0.4 mg Oral CapsuleIndicatio ns:BPH with urinary obstruction Take 1 Capsule by mouth 2 times daily. 180 Capsule 1 4 Active pantoprazole (PROTONIX) 40 mg Oral Tablet, Delayed Release (E.C.)Indication s:Gastroesophage al reflux disease without esophagitis Take 1 Tablet by mouth 2 times daily. 180 Tablet 1 4 Active sod picosulf-mag ox-citric ac 10 mg-3.5 gram- 12 gram/175 mL Oral SolutionIndicati ons:Melena Take 1 kit per physician instructions 350 mL 4 Active Additional Information Patient not taking.Reason: Therapy Completed, Reported on 10/04/2023 clindamycin (CLEOCIN T) 1 % Top LotionIndication s:Folliculitis Apply a thin layer to scalp and abdomen twice daily prn flares of inflamed hair follicles 60 mL 1 4 Active Active Problems Patient Care Coordination No te Formatting of this note migh t be different from the original. [facility] - Damien Jones MD Interventional Pain Protocol: Katiuska report completed (EVERY 3 MONTHS) ( 10/15/23 ) [facility] additional info (Transportation, WC, Compound, No Show, PPW) Pharmacy: [facility] [id number] [place] [address] [address] [facility] [phone] Spine Center additional info (Transportation, WC, Compound, No Show, PPW) Problem Noted Date Diagnosed Date IGT (impaired glucose tolerance) 09/03/2023 Overview (09/03/2023): A1C: 5.9 06/2023 Assessment & Plan (09/03/2023 10:17 AM EDT): Has been losing weight 30# in the past 6 months with diet / stress. Posterior vitreous detachment of left eye 2023 Assessment & Plan (09/03/2023 2:09 PM EDT): Patient educated about PVD. Due to patient still experiencing flashing of lights (primarily when looking down/inferior), PVD process has likely not completed. Advised continuing to monitor symptoms. I would recommend seeing again in 1 month for DFE to monitor. On examination today there were no signs of vitreous hemorrhage, retinal tears, or retinal detachment seen. The signs and symptoms of retinal detachment were discussed and the patient is to call immediately for a repeat examination with any new photopsias, floaters, loss in peripheral vision, loss of vision, or concerning changes. Age-related nuclear cataract of both eyes 2023 Assessment & Plan (09/03/2023 2:09 PM EDT): Mild OU continue to monitor Patient typically gets seen for regular eye care outside of [facility]. Morbid obesity 10/31/2022 Assessment & Plan (10/31/2022 2:14 PM EDT): To continue working on diet and weight loss. Benign hypertensive cardiomyopathy, without hear t failure 05/18/2022 Assessment & Plan (10/31/2022 2:10 PM EDT): Recommended he continue with cardiology follow-up. Seeing card soon Doing well Assessment & Plan (05/18/2022 11:07 AM EST): Stable, doing well Seeing cardiology yearly EF 55-60% 09/14 Age-related osteoporosis wit hout current pathological fracture 03/30/2022 Overview (10/31/2022): Vertebral compression fractures in the past Secondary polycythemia 11/10/2021 Assessment & Plan (05/18/2022 7:24 AM EST): By history, we will follow-up on this today. Difficulty controlling anger 11/10/2021 Assessment & Plan (10/31/2022 2:11 PM EDT): Doing well , no issues Assessment & Plan (05/18/2022 10:52 AM EST): Well controlled History of kidney stones 11/10/2021 Rotator cuff syndrome of right shoulder 11/11/19 History of Yosef-en-Y gastric bypass 06/23/2021 Overview (06/23/2021): -2005 Personal history of colonic polyps 06/23/2021 Fibromyalgia 05/03/2021 Assessment & Plan (09/03/2023 12:03 PM EDT): Currently doing well No longer on gabapentin Assessment & Plan (06/28/2023 7:16 AM EDT): Generally well-controlled on Savella and gabapentin Katiuska reviewed from within [facility] and is as expected. Assessment & Plan (10/31/2022 2:13 PM EDT): Doing well on Savella and Gabapentin Reviewed Katiuska in Epic and as expected. Wanted confirmatory letter for [place] Marijuana card. Assessment & Plan (05/18/2022 10:49 AM EST): Doing well KATIUSKA as expected [id number] Assessment & Plan (11/10/2021 6:37 AM EDT): Stable on savella + gabapentin Encouraged aerobic exercise katiuska as expected Assessment & Plan (09/21/2021 3:14 PM EDT): Well controlled on current meds KATIUSKA as expected: [id number] RTC 3 months and prn Assessment & Plan (06/15/2021 2:23 PM EDT): Well controlled on gabapentin and Savella KATIUSKA as expected, has not recently filled in [place]: [id number] Assessment & Plan (05/03/2021 9:22 AM EST): Doing well on Savella and gabapentin 800 HS and trazodone Insomnia, persistent 05/03/2021 Assessment & Plan (09/03/2023 12:04 PM EDT): Doing well on current management. Assessment & Plan (10/31/2022 2:14 PM EDT): Doing well Assessment & Plan (05/18/2022 10:49 AM EST): Doing well on trazodone Assessment & Plan (11/10/2021 6:36 AM EDT): Stable on trazodone Assessment & Plan (06/15/2021 2:23 PM EDT): Doing well on gabapentin and trazodone. katiuska as expected. Assessment & Plan (05/03/2021 9:22 AM EST): Doing well on trazodone BPH with urinary obstruction 05/03/2021 Assessment & Plan (09/03/2023 12:02 PM EDT): Symptoms well-controlled on current medication. Assessment & Plan (10/31/2022 2:11 PM EDT): Seeing urology Clinically doing well No longer on Miralax Assessment & Plan (05/18/2022 10:50 AM EST): Doing well Seeing urology as well. Assessment & Plan (11/10/2021 6:38 AM EDT): Controlled on proscar + flomax Assessment & Plan (05/03/2021 9:23 AM EST): Doing well on Flomax and Proscar Hyperlipidemia with target LDL less than 100 10/2021 Assessment & Plan (10/31/2022 2:13 PM EDT): Doing well on Crestor Assessment & Plan (05/18/2022 10:50 AM EST): Doing well on pravastatin Assessment & Plan (11/10/2021 6:36 AM EDT): Stable Tolerating pravachol well Assessment & Plan (06/06/2021 8:41 AM EDT): On meds Recommended tightening up on diet Assessment & Plan (05/03/2021 9:24 AM EST): Goal : - moderate dose statin and lifestyle modifications to maintain LDL-C <100 as primary prevention with >10 % risk of CVD event in 10 years Compliance: - taking medications as prescribed. - compliant with dietary and lifestyle advice Advice: - lower saturated fats in diet - Mediterranean diet Medication Management: - medication management decisions took place at today's visit (see orders) Essential hypertension 05/03/2021 Assessment & Plan (10/31/2022 2:12 PM EDT): Doing well No problems. Assessment & Plan (05/18/2022 10:50 AM EST): Goal BP : < 140/90 - at goal Compliance: - taking medications as prescribed. - compliant with dietary and lifestyle advice Advice: - continue a low salt diet and remain physically active Self Monitoring:- continue BP monitoring as previous Medication Management: - medication management decisions took place at today's visit (see orders) Assessment & Plan (11/10/2021 6:38 AM EDT): Well controlled on current Assessment & Plan (06/06/2021 8:40 AM EDT): Well controlled. Assessment & Plan (05/03/2021 9:25 AM EST): Goal BP : < 140/90 - at goal Compliance: - taking medications as prescribed. - compliant with dietary and lifestyle advice Advice: - continue a low salt diet and remain physically active Self Monitoring:- continue BP monitoring as previous Medication Management: - medication management decisions took place at today's visit (see orders) Arthritis, multiple joint involvement 05/03/2021 Overview (05/03/2021): Knees, elbows, wrists, shoulder, ankles, neck. Disabled through [facility] and [place] Assessment & Plan (05/18/2022 10:51 AM EST): Doing well Assessment & Plan (11/10/2021 6:38 AM EDT): Doing well on topical voltaren No oral nsaids due to sp gbypass Assessment & Plan (05/03/2021 9:26 AM EST): Doing well on Voltaren gel. History of obstructive sleep apnea 05/03/2021 Overview (05/03/2021): By history On CPAP in the past Assessment & Plan (05/18/2022 10:51 AM EST): Dong well currently Assessment & Plan (06/06/2021 8:40 AM EDT): Now better after weight loss. Assessment & Plan (05/03/2021 9:33 AM EST): Last evaluation showed no MAINE by hx Still can't sleep well at night Not snoring but still feels that he has some trouble breathing at night and excess sedation during the day No problems driving. Gastroesophageal reflux disease without esophagi tis 05/03/2021 Assessment & Plan (09/03/2023 12:04 PM EDT): Well-controlled Assessment & Plan (10/31/2022 2:13 PM EDT): Doing well Assessment & Plan (05/18/2022 10:52 AM EST): Well controlled Assessment & Plan (11/10/2021 6:37 AM EDT): Stable on PPI Assessment & Plan (06/06/2021 8:39 AM EDT): Still needing PPI BID Assessment & Plan (05/03/2021 10:09 AM EST): Certainly doing well on Protonix 40 mg twice daily Asked him to try to decrease this to once daily if effective. Resolved Problems Problem Noted Date Diagnosed Date Resolved Date History of abdominal aortic aneurysm (AAA) 10/31/2022 11/06/2022 Overview (10/31/2022): Initially dx at [facility] and then later confirmed at No longer present on any imaging study I can see and even has reported resolution Assessment & Plan (10/31/2022 2:10 PM EDT): Not currently present Doing well. Abdominal aortic aneurysm (A AA) without rupture 05/18/2022 10/31/2022 Assessment & Plan (10/31/2022 8:05 AM EDT): Stable, doing well Recent ultrasound without any significant aneurysm. Assessment & Plan (05/18/2022 11:05 AM EST): Recent US showed nml Aorta Immunizations Immunization Administration Dates Next Due DTaP 04/08/2017 Hep A/Hep B 09/02/2018,03/07/2018 Hepatitis B, Adult 04/05/2018 Influenza Patient Reported 03/12/2023 Influenza Seasonal Injectable PF 04/17/2017 Influenza Vaccine Quadrivalent Mdck Cell Derived 01/24/2019 Influenza Vaccine Quadrivalent PF 03/12/2023 Influenza Virus Vaccine Quadrivalant, Flublok ,05/03/2021 Moderna SARS-CoV-2 Vaccine 12+ Yrs (Light blue b order) 08/10/2020,07/13/2020 Moderna SARS-CoV-2 Vaccine 12+ Yrs Spikevax 02/23 Pfizer SARS-CoV-2 Bivalent B ooster Vaccine 12+ Years (Davis border) 01/19/2022 Pfizer SARS-CoV-2 Vaccine 12+ Yrs (Purple Cap) 1 04/21/2020 Pfizer SARS-CoV-2 Vaccine Tr is-Sucrose 12+ Years (Davis Cap) 08/30/2021 Pfizer SARS-CoV-2 Vaccine Sergio-sucrose 12+ Yrs 1 05/13/2022 Pneumococcal Conjugate Vaccine 20 Valent 022 RSV Recombinant PF (Arexvy) 03/12/2023 Tdap 01/25/2022 Zoster Recombinant 12/13/2021,10/05/2021 Surgical History Surgery Date Site/Laterality Comments SHOULDER SURGERY 03/26/2015 - 03/25/2016 Left KNEE SURGERY 03/26/2016 - 03/25/2017 Left TKR ELBOW SURGERY Bilateral ulnar nerve entrapment VASECTOMY 03/26/1986 - 03/25/1987 YOSEF-EN-Y GASTRIC BYPASS 03/26/2004 - 03/25/2005 IR 2 LEVEL BILATERAL MEDIAL BRANCH BLOCK LUM SAC 08/04/2021 IR 2 LEVEL BILATERAL MEDIAL BRANCH BLOCK LUM SAC 08/04/2021 [facility] IR 2 LEVEL BILATERAL MEDIAL BRANCH BLOCK LUM SAC 08/18/2021 IR 2 LEVEL BILATERAL MEDIAL BRANCH BLOCK LUM SAC 08/18/2021 Damien Jones MD [facility] IMAGING CHOLECYSTECTOMY FIXATION KYPHOPLASTY 04/12/2022 Spine/N/A Kyphoplasty of L1 and T12; Surgeon: Willian Navarro MD; Location: [facility] MAIN OR; Service: Spine Medical devices from this surgery are in the Medical Devices section. COLONOSCOPY LUMBAR DISC ARTHROPLASTY Apr 2022 Medical History Medical History Date Comments Essential (primary) hypertension Dyslipidemia History of kidney stones 11/10/2021 Hyperlipidemia Motion sickness Sleep apnea no longer needs cpap after sleeve surgery Heartburn Arthritis osteo neck and b ack Prostate disorder Chronic kidney disease kidney st ones, cyst on kidney Borderline diabetes Colon polyp Family History Medical History Relation Name Comments Heart Attack Paternal Grandfather Cancer Sister Kim Started in lung s, non smoker, spread to hips, spinal column, brain. Anesth Problems Neg Hx Cataracts Neg Hx Glaucoma Neg Hx Macular Degen Neg Hx Relation Name Status Comments Paternal Grandfather Sister Kim Social History Tobacco Use Types Packs/Day Years Used Date Smoking Tobacco: Former Cigarettes 1 20 0 03/26/1978 - 03/26/1998 Passive Smoke Exposure: Past Smokeless Tobacco: Former Chew Quit: 03/26/1998 Tobacco Cessation:Counseling Given: Not Answered Alcohol Use Standard Drinks/Week Comments Not Currently 0 (1 standard drink = 0.6 oz pur e alcohol) Occasional drinks PHQ-2 Answer Date Recorded PHQ-2 Total Score 0 06/28/2023 Sexually Active Control Partners Comments Not Currently Female Sex and Gender Information Value Date Recorded Sex Assigned at Not on file Legal Sex Male 6:52 AM EDT Gender Identity Not on file Sexual Orientation Not on file Obstetrics History Last Filed Vital Signs Vital Sign Reading Time Taken Comments Blood Pressure 114/69 10/04/2023 2:16 PM EDT Pulse 76 10/04/2023 2:16 PM EDT Temperature 36.5 C (97.7 F) 10/04/2023 12:36 PM EDT Respiratory Rate 16 10/15/2023 8:55 AM EDT Oxygen Saturation 97% 10/04/2023 2:16 PM EDT Inhaled Oxygen Concentration - - Weight 122 kg (269 lb) 10/15/2023 8:55 AM EDT Height 175.3 cm (5' 9 ) 10/15/2023 8:55 AM EDT Body Mass Index 39.72 10/15/2023 8:55 AM EDT Plan of Treatment Health Maintenance Due Date Last Done Comments Cologuard 06/09/2004 FIT 06/09/2004 Sigmoidoscopy 06/09/2004 Virtual Colonography 06/09/2004 COVID-19 Vaccine ( season) 2023 03/12/2023, 03/12/2023, 01/19/2022, Additional history exists Wellness Exam Medicare 06/28/2024 , 05/18/2022, 05/03/2021 Influenza Vaccine (Season Ended) 2024 03/12/2023, 03/12/2023, 01/19/2022, Additional history exists Colon Cancer Screening 10/03/2028 Colonoscopy 10/03/2028 10/04/2023, 07/25, 07/15/2021, Additional history exists DTaP/TDaP/Td (3 - Td or Tdap) 01/26/2032 01/25/2022, 04/08/2017 Hepatitis B Vaccine Completed 09/02/2018, 04/05/2018, 03/07/2018 Hepatitis C Screening Completed 05/03/2021 Pneumococcal Vaccine 50+ Completed 08/30/2021 Zoster Completed 12/13/2021, 10/05/2021 Meningococcal B Vaccine Aged Out No l onger eligible based on patient's age to complete this topic Goals Goal Patient Goal Type Associated Problems Recent Progress Patient-Stated? Author Blood Pressure < 140/90 Blood Pressure 114/69(2023 2:16 PM EDT) No Bogdan Sam MD Maintain a healthy diet, exercise regularly and maintain an ideal body weight General No Bogdan Sam MD Stay Tobacco Free Lifestyle No Niurka Evans, [employer] Medical Devices Implanted Type Area Calibration Engineer Device Identifier Shelf Expiration Date Model / Serial / Lot Knee Left: Knee Kt Bone Cemnt Xpede - [id number] Implanted:Qty: 1 on 04/12/2022 by Willian Navarro MD at [facility] N/A: Back [employer] 09/22/2024 CX01B / / [id number] Kt Bone Cemnt Xpede - [id number] Implanted:Qty: 1 on 04/12/2022 by Willian Navarro MD at [facility] N/A: Back [employer] 09/22/2024 CX01B / / [id number] Procedures Procedure Name Priority Date/Time Associated Diagnosis Comments COLONOSCOPY Routine 10/04/2023 2:11 PM EDT Melena HCV ANTIBODY SCREEN W/ REFLEX Routine 05/03/2021 9:57 AM EST Need for hepatitis C screening test from Last 3 Months or Most Recently Relevant to Health Maintenance Results * COLONOSCOPY (10/04/2023 2:11 PM EDT) Anatomical Region Laterality Modality Endoscopy Narrative 10/04/2023 2:15 PM EDT Table formatting from the original result was not included. Findings One 4 mm sessile and benign-appearing polyp in the sigmoid colon; performed cold forceps biopsy with complete removal Erythematous mucosa in the rectum; performed cold forceps biopsy Recommendation Await pathology results Recommend a high fiber diet. No source of GI bleed. Hgb normal. No further work up at this time. Keep current colon recall for 2027. Pre-Procedure Diagnosis / Indication Melena Post-Procedure Diagnosis Melena Staff Staff Role Ana Cuellar RN Nurse Bong Srivastava III, MD Performing Provider [address] CRNA CRNA Medications See Anesthesia Record. Preprocedure A history and physical has been performed, and patient medication allergies have been reviewed. The patient's tolerance of previous anesthesia has been reviewed. The risks and benefits of the procedure and the sedation options and risks were discussed with the patient. All questions were answered and informed consent obtained. ASA 3 - Patient with severe systemic disease Details of the Procedure The patient underwent monitored anesthesia care, which was administered by an anesthesia professional. The patient's blood pressure, heart rate, level of consciousness, oxygen, respirations, ECG and ETCO2 were monitored throughout the procedure. A digital rectal exam was performed. The scope was introduced through the anus and advanced to the cecum. Retroflexion was performed in the rectum. Bowel prep was adequate. The patient experienced no blood loss. The procedure was not difficult. The patient tolerated the procedure well. There were no apparent adverse events. Patient provided education and educated on specific discharge instructions. Patient educated on medications given during the procedure and new medications for discharge. Patient verbalizes understanding of discharge education. Patient stable and awaiting transport for discharge. Events Procedure Events Event Event Time ENDO SCOPE IN TIME 10/04/2023 1:56 PM ENDO CECUM REACHED 10/04/2023 2:03 PM ENDO SCOPE WITHDRAW BEGIN 10/04/2023 2:03 PM TSG LUME TI REACHED 10/04/2023 2:05 PM ENDO SCOPE OUT TIME 10/04/2023 2:11 PM Specimens ID Type Source Tests Collected by Time 1 : Tissue Large Intestine, Rectum TSG PATHOLOGY ORDER Bong Srivastava III, MD 10/04/2023 1412 2 : Tissue Large Intestine, Sigmoid Colon TSG PATHOLOGY ORDER Bong Srivastava III, MD 10/04/2023 1412 us Bong Srivastava III, MD ENDOSCOPY PROCEDURE ORDERA BLES Final Result * HEPATITIS C ANTIBODY - SCREENING (05/03/2021 9:57 AM EST) Hep C Ab Non-Reactiv e Non-Reacti ve 05/03/2021 3:34 PM EST PREFERRED RegisterPatient Blood VENOUS BLOOD / Unknown Venipuncture / Unknown 05/03/2021 9:57 AM EST 05/03/2021 9:57 AM EST us Bogdan Sam MD HEMATOLOGY ORDERABLES Final Result PREFERRED RegisterPatient [address] [facility] , [place] [address] from Last 3 Months or Most Recently Relevant to Health Maintenance Insurance MEDICARE [place] PART A AND B [employer] Member Subscriber Plan / Payer (Ef fective 2021-Present) Name:Gt Grimes Relation to Subscriber:Self Name:Gt Grimes Payer ID:Not on file Group ID:Not on file Type:Not on file Address: [place] [id number] [place] [place] [address] [place] [address] [place]ICARE [place] PART A [place] B FOR LIFE Care Teams Auger Press Operator Relationship Specialty Start Date End Date Bogdan Sam MD [address] [place] [address] PCP - General Family Medicine 05/03/21
--- OUTSIDE RECORDS SUMMARY | 2024-09-08 11:10 | XMS_ITS | Clinical Summary ---
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 Name Role Phone Gavin Chamorro MD Primary Care Physician [phone] Conditions or Problems Problem Name Problem Code Onset Date Status Entry Date Provider Comment Standard Description Annotate Body mass index (BMI) 40.0-44.9; adult Z68.41 (ICD-10-CM ) Active Gavin Chamorro MD Body mass index [BMI] 40.0-44.9, adult Body mass index (BMI) 40.0-44.9; adult Z68.41 (ICD-10-CM ) Correction 09/11 Gavin Chamorro MD Body mass index [BMI] 40.0-44.9, adult Body mass index (BMI) 40.0-44.9; adult Z68.41 (ICD-10-CM ) Removed 09/11 Gavin Chamorro MD Body mass index [BMI] 40.0-44.9, adult Body mass index (BMI) 40.0-44.9; adult Z68.41 (ICD-10-CM ) Correction 06/12 Gavin Chamorro MD Body mass index [BMI] 40.0-44.9, adult Counseling for nutrition Z71.3 (ICD-10-CM ) Inactive 06/12 Gavin Chamorro MD Dietary counseling and surveillance Body mass index (BMI) 40.0-44.9; adult Z68.41 (ICD-10-CM ) Removed 06/12 Gavin Chamorro MD Body mass index [BMI] 40.0-44.9, adult Body mass index (BMI) 40.0-44.9; adult Z68.41 (ICD-10-CM ) Correction 05/17 Gavin Chamorro MD Body mass index [BMI] 40.0-44.9, adult Counseling for nutrition Z71.3 (ICD-10-CM ) Inactive 05/17 Gavin Chamorro MD Dietary counseling and surveillance Body mass index (BMI) 40.0-44.9; adult Z68.41 (ICD-10-CM ) Removed 05/17 Gavin Chamorro MD Body mass index [BMI] 40.0-44.9, adult Body mass index (BMI) 39.0-39.9; adult Z68.39 (ICD-10-CM ) Correction 12/21 Gavin Chamorro MD Body mass index [BMI] 39.0-39.9, adult Counseling for nutrition Z71.3 (ICD-10-CM ) Inactive 12/21 Gavin Chamorro MD Dietary counseling and surveillance Body mass index (BMI) 39.0-39.9; adult Z68.39 (ICD-10-CM ) Removed 12/21 Gavin Chamorro MD Body mass index [BMI] 39.0-39.9, adult Body mass index (BMI) 37.0-37.9; adult Z68.37 (ICD-10-CM ) Correction 09/21 Gavin Chamorro MD Body mass index [BMI] 37.0-37.9, adult Counseling for nutrition Z71.3 (ICD-10-CM ) Inactive 10/18 Beckie SRIVASTAVAW Dietary counseling and surveillance Counseling for nutrition Z71.3 (ICD-10-CM ) Inactive 09/28 Beckie SRIVASTAVAW Dietary counseling and surveillance Counseling for nutrition Z71.3 (ICD-10-CM ) Inactive 09/21 Gavin Chamorro MD Dietary counseling and surveillance Body mass index (BMI) 37.0-37.9; adult Z68.37 (ICD-10-CM ) Removed 09/21 Gavin Chamorro MD Body mass index [BMI] 37.0-37.9, adult Body mass index (BMI) 34.0-34.9; adult Z68.34 (ICD-10-CM ) Correction 06/23 Gavin Chamorro MD Body mass index [BMI] 34.0-34.9, adult Counseling for nutrition Z71.3 (ICD-10-CM ) Inactive 09/14 Beckie Lainhart [employer] Dietary counseling and surveillance Counseling for nutrition Z71.3 (ICD-10-CM ) Inactive 08/31 Beckie Lainhart [employer] Dietary counseling and surveillance Counseling for nutrition Z71.3 (ICD-10-CM ) Inactive 08/18 Beckie Lainhart [employer] Dietary counseling and surveillance Counseling for nutrition Z71.3 (ICD-10-CM ) Inactive 08/03 Beckie Lainhart [employer] Dietary counseling and surveillance Counseling for nutrition Z71.3 (ICD-10-CM ) Inactive 07/20 Beckie Lainhart [employer] Dietary counseling and surveillance Counseling for nutrition Z71.3 (ICD-10-CM ) Inactive 06/30 Beckie Lainhart [employer] Dietary counseling and surveillance Counseling for nutrition Z71.3 (ICD-10-CM ) Inactive 06/30 Beckie Lainhart [employer] Dietary counseling and surveillance Counseling for nutrition Z71.3 (ICD-10-CM ) Inactive 06/23 Gavin Chamorro MD Dietary counseling and surveillance Body mass index (BMI) 34.0-34.9; adult Z68.34 (ICD-10-CM ) Removed 06/23 Gavin Chamorro MD Body mass index [BMI] 34.0-34.9, adult Body mass index (BMI) 34.0-34.9; adult Z68.34 (ICD-10-CM ) Correction 06/04 Gavin Chamorro MD Body mass index [BMI] 34.0-34.9, adult Counseling for nutrition Z71.3 (ICD-10-CM ) Inactive 06/[address] [facility] Dietary counseling and surveillance Body mass index (BMI) 34.0-34.9; adult Z68.34 (ICD-10-CM ) Removed 06/04 Gavin Chamorro MD Body mass index [BMI] 34.0-34.9, adult Depression [id number] (SNOMED CT) Active 05/25 Gavin Chamorro MD Depressive disorder Medications Medication Instructions Start Date Stop Date Generic Name NDC Provider ZOLOFT 50 MG TABS Take 1 tablet by mouth once a day 9 sertraline [id number] Gavin Chamorro MD ZOLOFT 50 MG TABS Take 1 tablet by mouth once a day 9 sertraline [id number] Gavin Chamorro MD ZOLOFT 50 MG TABS Take 1 tablet by mouth once a day 9 sertraline [id number] Gavin Chamorro MD ZOLOFT 50 MG TABS Take 1 tablet by mouth once a day 9 sertraline [id number] Gavin Chamorro MD ZOLOFT 50 MG TABS Take 1 tablet by mouth once a day 9 sertraline 36128990458 Gavin Chamorro MD ZOLOFT 50 MG TABS Take 1 tablet by mouth once a day 9 sertraline [id number] Gavin Chamorro MD ZOLOFT 50 MG TABS Take 1 tablet by mouth once a day ( START HALF TABLET DAILY FOR 1 WEEK, THEN TAKE ONE TABLET DAILY ) 2 sertraline [id number] Gavin Chamorro MD ZOLOFT 50 MG TABS Take 1 tablet by mouth once a day 1 sertraline [id number] Gavin Chamorro MD ZOLOFT 50 MG TABS Take 1 tablet by mouth once a day ( START HALF TABLET DAILY FOR 1 WEEK, THEN TAKE ONE TABLET DAILY ) 2 sertraline [id number] Gavin Chamorro MD Medications Administered No information available. Allergies, Adverse Reactions, Alerts Observed no known allergies at Results No information available. Plan of Care No information available. Procedures Code Procedure Name Date Entry Date [facility]-[id number] Medication Reconciliation CPT-3074F Most recent systolic blood pressure <130 mm Hg SCT-[id number] Medication Reconciliation CPT-3074F Most recent systolic blood pressure <130 mm Hg CPT-3079F Most recent diastoli c blood pressure 80-89 mm Hg [facility]-[id number] Medication Reconciliation CPT-3074F Most recent systolic blood pressure <130 mm Hg CPT-3079F Most recent diastoli c blood pressure 80-89 mm Hg CPT-3077F Most recent systolic blood pressure >=140 mm Hg CPT-3079F Most recent diastoli c blood pressure 80-89 mm Hg CPT-3074F Most recent systolic blood pressure <130 mm Hg CPT-3079F Most recent diastoli c blood pressure 80-89 mm Hg CPT-20574() Psychotherapy 45m -No [facility]() 14/10/25 CPT-35759() Psychotherapy 45m -No [facility]() 14/10/04 [facility]-[id number] Medication Reconciliation CPT-3074F Most recent systolic blood pressure <130 mm Hg CPT-3078F Most recent diastoli c blood pressure <80 mm Hg CPT-84432() Psychotherapy 45m -No [facility]() 20 14/09/20 CPT-14376() Psychotherapy 45m -No [facility]() 20 14/09/06 CPT-84177() Psychotherapy 45m -No [facility]() 20 14/08/24 CPT-76730() Psychotherapy 45m -No [facility]() 14/08/09 CPT-66510() Psychotherapy 60m Crises -[facility]() CPT-41808() Psychotherapy 45m -No [facility]() 15/07/05 CPT-1159F Medication list docu mented in medical record [facility]-[id number] Medication Reconciliation CPT-3074F Most recent systolic blood pressure <130 mm Hg CPT-3078F Most recent diastoli c blood pressure <80 mm Hg CPT-66969() Psychotherapy 60m Crises -[facility] Add On() [facility]-[id number] Medication Reconciliation CPT-3074F Most recent systolic blood pressure <130 mm Hg CPT-3079F Most recent diastoli c blood pressure 80-89 mm Hg Vital Signs Date Name Value Unit Description BMI (Body Mass Index) 41.88 kg/m2 Bod y Mass Index (Ratio) BP Diastolic 79 mm[Hg] blood pressu re, diastolic BP Systolic 119 mm[Hg] blood pressur e, systolic BSA (Body Surface Area) 2.61 b shell surface area Heart Rate 92 /min pulse rate Height 71 [in_us] height E&M Height 180.34 cm height in cent imeters [facility] Weight Measured 136 kg weight in kilograms [facility] Weight Measured 299.2 [lb_av] weight E& M Weight Measured 299.2 [lb_av] weight E& M Body Temperature 98.3 [degF] temperat ure E&M Body Temperature 36.83 Bety temperat ure in centigrade E&[facility] Immunizations No information available. Advance Directives No information available.
--- OUTSIDE RECORDS SUMMARY | 2024-09-08 11:10 | XMS_ITS | Data Portability ---
Author Organization [facility] Address [address] [place] [address] Care Team Providers Care Associate Sales Manager Name Role Phone [facility] Primary Care Pro vider Assessment No assessment recorded. Plan of Treatment Reminders Order Date Submit Date Provider Last Modified By Organization Details Last Modified Time Details Appointments None recorded. Lab HbA1c (hemoglobin A1c), blood 2023 [facility] (Lab Registration) , [address] [place], [address], 4 08:31:48 lipid panel, serum 2023 [facility] (Lab Registration) , [address] [place], [address], 4 08:31:52 CMP, serum or plasma 2023 024 [facility] (Lab Registration) , [address] [place], [address], 4 08:31:50 Referral None recorded. Procedures None recorded. Surgeries None recorded. Imaging electrocard iogram 2023 [facility], [address] [place], [place], [address], 4 14:33:13 US, echocardiog anibal, transthorac ic, complete, w/ color flow 2023 024 [facility], [address], [place], [address], 4 14:03:11 pharmacolog ic nuclear stress test 2023 024 [facility], [address], [place], [address], 4 10:33:26 US, abdominal aorta 2023 024 [facility], [address], [place], [address], 4 11:03:59 Medication Orders nitroglycer in 0.4 mg sublingual tablet 2023 [id number], [address], [place], [place], [id number], 14:19:42 Patient TargetsNo targets recorded. Patient InstructionsNo instructions recorded. Reason for Referral None Reported. Results Created Date Observation Date Name Description Value Unit Range Abnormal Flag Note LastModifiedBy Organization Detail LastModifiedTime 11/22/1911/22/2023 HEMOG LOBIN A1C glycosylated hemoglobin A1C 5.6 % 4.5-6. 2 Not Available [facility] (Lab Registration) [address], [place], [address], 11/22/2023 08:31:48 11/22/1911/22/2023 HEMOG LOBIN A1C estimated average glucose 114 mg/dL 82-131 Not Available [facility] (Lab Registration) [address] [place], [address], 11/22/2023 08:31:48 11/22/1911/22/2023 HEMOG LOBIN A1C note Unles s other zuniga noted testi ng perfo rmed at: [facility] [address] [place] [address] [phone] Alin mazariegos MD CLIA: [id number] Not Available [facility] (Lab Registration) [address], [place], [address], 11/22/2023 08:31:48 11/22/19 24 11/22/2023 COMP METAB OLIC PANEL sodium 141 mmol/ L 136-14 5 Not Available [facility] (Lab Registration) [address] [place], [address], 11/22/2023 08:31:50 11/22/19 24 11/22/2023 COMP METAB OLIC PANEL potassium 4.1 mmol/ L 3.5-5. 1 Not Available [facility] (Lab Registration) [address] [place], [address], 11/22/2023 08:31:50 11/22/19 24 11/22/2023 COMP METAB OLIC PANEL chloride 103 mmol/ L 98-107 Not Available [facility] (Lab Registration) [address] [place], [address], 11/22/2023 08:31:50 11/22/19 24 11/22/2023 COMP METAB OLIC PANEL carbon dioxide 32 mmol/ L 21-32 Not Available [facility] (Lab Registration) [address] [place], [address], 11/22/2023 08:31:50 11/22/19 24 11/22/2023 COMP METAB OLIC PANEL anion gap 6.0 Not Available [facility] (Lab Registration) [address] [place], [address], 11/22/2023 08:31:50 11/22/19 24 11/22/2023 COMP METAB OLIC PANEL glucose 119 mg/dL 70-110 high Not Available [facility] (Lab Registration) [address] [place], [address], 11/22/2023 08:31:50 11/22/19 24 11/22/2023 COMP METAB OLIC PANEL blood urea nitrogen 14 mg/dL 7-18 Not Available [facility] (Lab Registration) [address] [place], [address], 11/22/2023 08:31:50 11/22/19 24 11/22/2023 COMP METAB OLIC PANEL creatinine 1.0 mg/dL 0.8-1. 3 Not Available [facility] (Lab Registration) [address] [place], [address], 11/22/2023 08:31:50 11/22/19 24 11/22/2023 COMP METAB OLIC PANEL BUN/creatini ne ratio 14.0 ratio 9-21 Not Available [facility] (Lab Registration) [address] [place], [address], 11/22/2023 08:31:50 11/22/19 24 11/22/2023 COMP METAB OLIC PANEL estimated glom filtration rate 84 mL/mi n >60- Not Available [facility] (Lab Registration) [address] [place], [address], 11/22/2023 08:31:50 11/22/19 24 11/22/2023 COMP METAB OLIC PANEL total protein 7.5 g/dL 6.4-8. 2 Not Available [facility] (Lab Registration) [address] [place], [address], 11/22/2023 08:31:50 11/22/19 24 11/22/2023 COMP METAB OLIC PANEL albumin 3.5 g/dL 3.4-5. 0 Not Available [facility] (Lab Registration) [address] [place], [address], 11/22/2023 08:31:50 11/22/19 24 11/22/2023 COMP METAB OLIC PANEL calcium 9.4 mg/dL 8.5-10 .1 Not Available [facility] (Lab Registration) [address] [place], [address], 11/22/2023 08:31:50 11/22/19 24 11/22/2023 COMP METAB OLIC PANEL corrected calcium 9.8 mg/dL 8.5-10 .1 Not Available [facility] (Lab Registration) [address] [place], [address], 11/22/2023 08:31:50 11/22/19 24 11/22/2023 COMP METAB OLIC PANEL bilirubin total 0.6 mg/dL 0.4-1. 5 Not Available [facility] (Lab Registration) [address] [place], [address], 11/22/2023 08:31:50 11/22/19 24 11/22/2023 COMP METAB OLIC PANEL AST (SGOT) 16 U/L 15-37 Not Available [facility] (Lab Registration) [address] [place], [address], 11/22/2023 08:31:50 11/22/19 24 11/22/2023 COMP METAB OLIC PANEL ALT (SGPT) 17 U/L 12-78 Not Available [facility] (Lab Registration) [address] [place], [address], 11/22/2023 08:31:50 11/22/19 24 11/22/2023 COMP METAB OLIC PANEL alk phosphatase 80 U/L Not Available [facility] (Lab Registration) [address] [place], [address], 11/22/2023 08:31:50 11/22/19 24 11/22/2023 COMP METAB OLIC PANEL note Unles s other zuniga noted testi ng perfo rmed at: [facility] [address] [place] [address] [phone] Alin mazariegos MD CLIA: [id number] Not Available [facility] (Lab Registration) [address] [place], [address], 11/22/2023 08:31:50 11/22/19 24 11/22/2023 LIPID PANEL triglyceride 61 mg/dL 20-200 The Natio nal [employer] t[employer] am (NCEP ) has set the follo wing guide lines for Fasti ng Trigl yceri hill: LISSET L: <150 mg/dL BORDE RLINE HIGH: 150 - 199 mg/dL HIGH: 200 - 499 mg/dL VERY HIGH: > or =500 mg/dL Not Available [facility] (Lab Registration) [address] [place], [address], 11/22/2023 08:31:52 11/22/19 24 11/22/2023 LIPID PANEL cholesterol 186 mg/dL 0-200 The Natio nal [employer] t[employer]gr am (NCEP ) has set the follo wing guide lines for Fasti ng Clover stero l: RADHA ABLE: <200 mg/dL BORDE RLINE HIGH: 200 - 239 mg/dL HIGH: > or =240 mg/dL Not Available [facility] (Lab Registration) [address] [place], [address], 11/22/2023 08:31:52 11/22/19 24 11/22/2023 LIPID PANEL HDL cholesterol 66 mg/dL 60- The Natio nal [employer]ca t[employer]gr am (NCEP ) has set the follo wing guide lines for Fasti ng HDL [place]over stero l: LOW HDL: <40 mg/dL LISSET L: 40 - 60 mg/dL RADHA ABLE: >60 mg/dL Not Available [facility] (Lab Registration) [address] [place], [address], 11/22/2023 08:31:52 11/22/19 24 11/22/2023 LIPID PANEL LDL calculated 108 mg/dL 100- The Natio nal [employer]ca t[employer]gr am (NCEP ) has set the follo wing guide lines for Fasti ng LDL [employer] stero l: OPTIM AL: < 100 mg/dL LOW RISK: 100 - 129 mg/dL BORDE RLINE HIGH: 130 - 159 mg/dL HIGH: 160 - 189 mg/dL VERY HIGH: > or = 190 mg/dL Not Available [facility] (Lab Registration) [address] , [place], [address], 11/22/2023 08:31:52 11/22/19 24 11/22/2023 LIPID PANEL chol/HDL ratio 3 ratio -5 Not Available [facility] (Lab Registration) [address] , [place], [address], 11/22/2023 08:31:52 11/22/19 24 11/22/2023 LIPID PANEL note Unles s other zuniga noted testi ng perfo rmed at: [facility] [address] [place] [address] [phone] Alin mazariegos MD CLIA: [id number] Not Available [facility] (Lab Registration) [address] , [place], [address], 11/22/2023 08:31:52 11/20/19 24 11/13/2023 imagi ng/di agnos tic resul t No observ ation record ed. [email or web address] Not Available 2023 12:28:09 11/20/19 24 11/13/2023 elect rocar diogr am No observ ation record ed. [email or web address] Not Available 2023 12:28:56 11/20/19 24 11/20/2023 elect rocar diogr am No observ ation record ed. [address] [place], [place], [address], 11/20/2023 14:33:56 11/20/19 24 11/20/2023 elect rocar diogr am No observ ation record ed. [facility] [address] [place], [place], [address], 11/20/2023 14:33:13 11/27/19 24 11/27/2023 US, abdom inal aorta [facility] [address] [place] [address] Phone: Fax: Name: DALE EVANS Exam Date: 11/27/19 : 960 Age 63 years Gender : M Access ion: [id number] Physic sukhdev: STEVO KLEIN Facili ty: [facility] Facili ty HSV: Outpat ient Exam: US AORTA PROCED URE: US RETROP ERITON EUM AORTA INDICA TION: . Techni que: Sonogr am of the abdomi nal aorta was perfor med withou t Dopple r assess ment. COMPAR ELSA: None FINDIN GS: The visual ized portio ns of the abdomi nal aorta maximu m centim eters calibe r measur ements are as follow s: Proxim al: 2.0 Mid: 1.9 Distal : 2.0 The visual ized portio ns of the bilate ral iliac artery maximu m centim eters calibe r measur ements are as follow s: Right iliac: 1.2 Left iliac: 1.2 Unrema rkable aortic Dopple r flow with a solid veloci ty of 81 cm/s. IMPRES FERNANDA: Unrema rkable study. No discre te abdomi nal aortic aneury sm identi fied. Electr onical ly signed by: Vahe Saba MD 2023 03:30 PM EDT RP Workst ation: [id number] Dictat ed By: Vahe Saba Transc ribed By: Transc ribed On: 11/27/19 3:23 PM Electr onical ly signed by: Vahe Saba 11/27/19 Thank you [facility]err ing [facility] Legall y authen ticate d by ROGELIO CARROLL MD 2023-0 11-26 15:23: 51 CC'ed Logic: Orderi ng Provid er: ROGELIO CARROLL Attend ing Provid er: BESSIE Alcantar Referr ing Provid er: BESSIE Alcantar Admitt ing Provid er: BESSIE Alcantar [facility] [address], [place], [address], 11/28/2023 11:03:59 11/30/19 24 11/27/2023 pharm acolo gic nucle ar stres s test STRESS TEST DALE EVANS [facility] 2 DATE OF SERVIC E: 2023 PROVID ER: STEVO DE LA PAZ MD STUDY: Lexisc an nuclea r stress test. Renan sosa is a 63-yea r-old male with past medica l histor y of hypert ension , dyslip idemia , sent for evalua tion of chest pain. At rest, he had a heart rate of 76 beats per minute . Restin g EKG was normal sinus rhythm . Restin g blood pressu re 134/93 mmHg, O2 satura tion at rest was 99% on room air. At rest, he receiv ed 10.48 millic uries IV inject ion of Cardio lite, and then 40 minute s later, the rest images were done. Then the renan sosa receiv ed 0.4 mg IV inject ion of Lexisc an over 10 second s and 20 second s later was follow ed by 33.4 millic uries IV inject ion of Cardio lite, and then in 40 minute s, the stress and gated images with the polar maps were done. After the Lexisc an inject ion, the renan sosa was monito red up to 10 minute s. His restin g heart rate of 76 beats per minute carlene to a maximu m heart rate of 98 beats per minute that repres ents approp riate respon se of the heart rate to Lexisc an inject ion. His restin g blood pressu re of 134/93 mmHg carlene to maximu m blood pressu re of 158/89 mmHg. During the monito ring period , the renan sosa denied any chest pain, but he had mild shortn ess of breath that resolv ed at the end of the monito ring period . There were no ST or T-wave change s sugges tive of ischem ia. There was no arrhyt hmia. At the end of the monito ring period , his hemody namics return ed back to his [facility] [place]. Test was comple brooke. FINDIN GS: Showed that the qualit y of the study was good. There was mild attenu ation artifa ct. LV cavity during stress was normal . TID was 0.99. Right ventri brianda was also normal . No lung activi ty seen. SPECT images showed there was homoge neous tracer distri bution throug hout the myocar dium with no fixed or revers ible defect seen. No ischem ia demons trated . Summed differ ence score was 1. Gated SPECT images showed normal wall thicke jose and motion throug hout the myocar dium with a calcul ated ejecti on fracti on of 44% which is mildly reduce d. In conclu fernanda, normal Lexisc an nuclea r stress test. No signif icant ischem ia demons trated . Mildly reduce d ejecti on fracti on. DICTAT ED BY: STEVO DE LA PAZ MD MA/MOD L DD: 2023 14:30: 36 DT: 2023 17:01: 56 /[id number] Electr onical ly Signed By: BESSIE Alcantar MD 11-29 09:10: 08 CC'ed Logic: Orderi ng Provid er: BESSIE Alcantar Attend ing Provid er: BESSIE Alcantar Referr ing Provid er: BESSIE Alcantar Admitt ing Provid er: BESSIE Alcantar [facility] [address] [facility] [address], [place], [address], 11/30/2023 10:33:26 12/18/19 24 12/17/2023 US, echoc ardio gram, trans thora cic, compl ete, w/ color flow [facility] [address] [place] [address] Phone: Fax: Name: DALE EVANS Exam Date: 024 : 3/17/1 960 Age 63 years Gender : M Access ion: [id number] Physic sukhdev: STEVO KLEIN Facili ty: [facility] Facili ty HSV: Outpat ient Exam: ECHOCA RDIOGR AM Conclu sions: 1. Normal LV size and functi on. 2. Estima brooke left ventri cular ejecti on fracti on is 55-60% . 3. There is no signif icant valvul ar stenos is or regurg itatio n by Dopple r flow analys is. Findin gs: Left Ventri brianda:No rmal LV size and functi on. Normal left ventri cular dimens ion. Normal left ventri cular diasto lic functi on. Normal left ventri cular systol ic functi on. Normal global wall motion . No region al wall motion abnorm alitie s. No left ventri cular thromb us noted. Right Ventri brianda:No rmal RV size. Normal right ventri cular size and functi on. Left Atrium :Lisset l left atrial size by volume criter ia. Right Atrium :Lisset l right atrial size. Mitral Valve: Normal mitral valve struct ure and functi on. No mitral stenos is. No mitral valve prolap se is presen t. Tricus pid Valve: Normal tricus pid valve struct ure and functi on. There is physio logic tricus pid valve regurg itatio n. Aortic Valve: Normal aortic valve struct ure and functi on. No aortic valve stenos is. No aortic valve regurg itatio n. Pulmon ic Valve: Normal pulmon ic valve struct ure and functi on. Perica rdium: Normal perica rdium. No perica rdial effusi on. Electr onical ly signed STEVO DE LA PAZ MD 4 7:39 PM Study Data 2D Measur ements M-MODE Measur ements Mitral Valve Tricus pid Valve Aortic Valve Pulmon ic Valve Report for DALE EVANS [id number] on 4 Dictat ed By: STEVO KLEIN Transc ribed By: ENOC , GABRIELLA Transc ribed On: 12:59 PM Electr onical ly signed by: STEVO KLEIN Thank you for referr karen EVANS [facility] Clarisa to [facility]. Legall y authen ticate d by BESSIE Alcantar MD 2023-0 12-17 13:03: 17 CC'ed Logic: Orderi ng Provid er: BESSIE Alcantar CC Provid er: NO FAMILY Attend ing Provid er: BESSIE Alcantar Referr ing Provid er: BESSIE Alcantar Admitt ing Provid er: BESSIE Alcantar [facility] [place] [address] [facility] [address], [place], [address], 12/18/2023 14:03:11 Result Notes Documentation Provider Name and Address Organization Details Recorded Time Pharmacologic Nuclear Stress Test : STRESS TEST MICHEL EVANS [facility] 2 DATE OF SERVICE: 11/27/2023 PROVIDER: CHERYL BASSETT MD STUDY: Lexiscan nuclear stress test. Patient is a 63-year-old male with past medical history of hypertension, dyslipidemia, sent for evaluation of chest pain. At rest, he had a heart rate of 76 beats per minute. Resting EKG was normal sinus rhythm. Resting blood pressure 134/93 mmHg, O2 saturation at rest was 99% on room air. At rest, he received 10.48 millicuries IV injection of Cardiolite, and then 40 minutes later, the rest images were done. Then the patient received 0.4 mg IV injection of Lexiscan over 10 seconds and 20 seconds later was followed by 33.4 millicuries IV injection of Cardiolite, and then in 40 minutes, the stress and gated images with the polar maps were done. After the Lexiscan injection, the patient was monitored up to 10 minutes. His resting heart rate of 76 beats per minute carlene to a maximum heart rate of 98 beats per minute that represents appropriate response of the heart rate to Lexiscan injection. His resting blood pressure of 134/93 mmHg carlene to maximum blood pressure of 158/89 mmHg. During the monitoring period, the patient denied any chest pain, but he had mild shortness of breath that resolved at the end of the monitoring period. There were no ST or T-wave changes suggestive of ischemia. There was no arrhythmia. At the end of the monitoring period, his hemodynamics returned back to his baseline. Test was completed. FINDINGS: Showed that the quality of the study was good. There was mild attenuation artifact. LV cavity during stress was normal. TID was 0.99. Right ventricle was also normal. No lung activity seen. SPECT images showed there was homogeneous tracer distribution throughout the myocardium with no fixed or reversible defect seen. No ischemia demonstrated. Summed difference score was 1. Gated SPECT images showed normal wall thickening and motion throughout the myocardium with a calculated ejection fraction of 44% which is mildly reduced. In conclusion, normal Lexiscan nuclear stress test. No significant ischemia demonstrated. Mildly reduced ejection fraction. DICTATED BY: CHERYL BASSETT MD MA/KASSANDRA /[id number] Electronically Signed By: DANYELLE VAZQUEZ MD 2023-11-30 09:10:08 CC'ed Logic: Ordering Provider: DANYELLE VAZQUEZ Attending Provider: DANYELLE VAZQUEZ Referring Provider: DANYELLE VAZQUEZ [facility]mitting [facility] 11/30/2023 10:33:26 Medical Equipment None Reported. Allergies No known drug allergies Medications Name Sig Start Date Stop Date Status Note LastModified by Organization Details LastModified Time metoprolol succinate ER 50 mg tablet,exte nded release 24 hr active Not Available Not Available Not Available tamsulosin 0.4 mg capsule active Not Available Not Available Not Available gabapentin 800 mg tablet 11/19 completed Not Available Not Available Not Available trazodone 100 mg tablet 11/19 completed Not Available Not Available Not Available pantoprazol e 40 mg tablet,jono yed release active Not Available Not Available Not Available nitroglycer in 0.[address] 1 tablet by sublingua l route. 2023 active Not Available Not Available Not Avai lable levofloxaci n 750 mg tablet TAKE 1 TABLET BY MOUTH DAILY FOR 10 DAYS 12/03 completed Not Available Not Available Not Available sertraline 50 mg tablet 11/25 completed Not Available Not Available Not Available finasteride 5 mg tablet active Not Available Not Available Not Available clindamycin 1 % lotion 11/25 completed Not Available Not Available Not Available rosuvastati n 20 mg tablet active Not Available Not Available Not Available Savella 50 mg tablet active Not Available Not Available No t Available Clenpiq 10 mg-3.5 gram-12 gram/175 mL oral solution TAKE 1 KIT PER PHYSICIAN INSTRUCTI ONS 12/03 completed Not Available Not Available Not Available Vitals Date Recorded Body weight Body mass index (BMI) Body height Oxygen saturation Oxygen saturation in Arterial blood by Pulse oximetry Heart rate Systolic blood pressure Diastolic blood pressure Provider Name and Address Organization Details Last Updated DateTime 4 643102. 66 g 39.9 kg/m2 175.26 cm 95 % 95 % 86 /min 119 mm[Hg] 74 mm[Hg] [facility] [place] 4 13:58:28 Date Recorded Body height Body mass index (BMI) Body weight Oxygen saturation Oxygen saturation in Arterial blood by Pulse oximetry Heart rate Systolic blood pressure Diastolic blood pressure Provider Name and Address Organization Details Last Updated DateTime 4 175.26 cm 40.7 kg/m2 750244. 78 g 97 % 97 % 95 /min 105 mm[Hg] 70 mm[Hg] [facility] [place] 4 13:43:58 Social History None recorded. Functional Status None recorded. Mental Status None recorded. Family History Nothing Reported. Medical History No medical history recorded. Past Encounters Encounter ID Performer Location Encounter Start Date Encounter Closed Date Diagnosis/Indication Diagnosis SNOMED-CT Code Diagnosis ICD10 Code Diagnosis Note [id number] Cheryl Bassett MD [address] [place] [address] 11/20/2023 13:45:33 11/20/2023 14:27:17 Chest pain 65142409 R07.9 Recurrent episodes of chest pain with a on visit. On medical treatment. We will proceed with a stress test and echocardio gram for evaluation patient has multiple risk factors for coronary artery disease Abdominal aortic aneurysm 698386339 I71.40 history of triple as per the patient no documentat ion available to us. Follow up AAA screening ultrasound for 63-year-ol d ex-smoker. Essential hypertension 29919666 I10 Controlled continue medication s. Dyslipidemia 237579194 E 78.5 On statin follow up fasting lipid profile. Prediabetes 810273439 R7 3.03 History of prediabete s follow up hemoglobin A1c. Ex-smoker 3250774 Z87.89 1 Quit smoking 1998. [id number] Cheryl Bassett MD [address] [place] [address] 12/04/2023 13:28:12 12/04/2023 13:54:31 Chest pain 30837347 R07.9 Status post episodes of chest pain with ER visit. no recurrence . On medical treatment. Came today to follow up on the stress test which was negative for ischemia results were discussed with the patient continue medical treatment. On follow up echocardio gram because of mildly reduced EF on the stress test. Essential hypertension 29592916 I10 Controlled continue medication s. Dyslipidemia 585603449 E 78.5 On statin follow up fasting lipid profile. Prediabetes 259910507 R7 3.03 History of prediabete s follow up hemoglobin A1c. Ex-smoker 6552205 Z87.89 1 Quit smoking 1998. AAA screening ultrasound was negative. Obesity 883048078 E66.9 body mass index 40.7. Recommend weight loss and sleep apnea evaluation . Health Concerns Section Related Observation LastModified by Organization Detai ls LastModified Time None Recorded Concern Status LastModified by Organization Details LastModified Time None Recorded Advance Directives Directive None Recorded Payers Insurance Date Sequence Insurance Name Policy Number Policy Zarate Covered Member ID Zarate Member ID Guarantor Name 11/20/2023 1 MEDIC[place]: [employer] Michel Evans [id number] Michel Evans 12/04/2023 2 [facility] () Michel Evans [id number] Michel Evans 11/20/2023 [place] A - [facility] (MEDICARE) Michel Evans [id number] Michel Evans 12/28/2023 1 [place] Michel Evans [id number] Michel Evans 01/15/2024 2 FOR LIFE ( - MEDICARE SUPPLEMENT) Michel Evans [id number] Michel Evans Notes Date Note Type Note Provider Name and Address Organization Details Recorded Time 11/20/2023 text/html 63 year old male with past medical history significant for hypertension dyslipidemia prediabetes, ex-smoker quit smoking 1998, history of obesity and gastric bypass in 2004, history of left knee replacement 2008, history of AAA diagnosed with an ultrasound 2 years ago as per the patient.Patient came today for cardiovascular consultation after he had an episode of chest pain when he was doing physical activity the sent him to the ER. His chest pain was dull aching pain 8/10 in severity lasted until he got to the ER. There was no nausea vomiting or excessive sweating. No palpitation dizziness falling down or passing out no orthopnea PND or leg swelling. No bleeding anywhere. I reviewed the chart from the ER visit on 11/13/23 for chest pain. EK11/20/23 sinus rhythm with sinus arrhythmia, with occasional premature ventriicular complexes otherwise normal ECG. EK11/13/23 sinus tachycardia HR 104 bpm, inferior infarct age undetermined. Abnormal EKG. Cheryl Bassett MD [address] [place] [address] & [place] 11/22/2023 15:27:18 12/04/2023 text/html 63 year old male with past medical history significant for hypertension dyslipidemia prediabetes, ex-smoker quit smoking 1998, history of obesity and gastric bypass in 2004, history of left knee replacement 2008, history of AAA diagnosed with an ultrasound 2 years ago as per the patient.Patient had an episode of chest pain when he was doing physical activity the sent him to the ER. His chest pain was dull aching pain 8/10 in severity lasted until he got to the ER. There was no nausea vomiting or excessive sweating. No palpitation dizziness falling down or passing out no orthopnea PND or leg swelling. No bleeding anywhere.I reviewed the chart from the ER visit on 11/13/23 for chest pain. Patient came today to follow up on the results of his stress test echocardiogram and AAA screening ultrasound. His echocardiogram was not done yet. But his stress test was negative for ischemia results were discussed with the patient. His AAA screening ultrasound was negative for AAA. These results were discussed with the patient we will continue medical treatment and follow up his echocardiogram. EK11/20/23 sinus rhythm with sinus arrhythmia, with occasional premature ventriicular complexes otherwise normal ECG. EK11/13/23 sinus tachycardia HR 104 bpm, inferior infarct age undetermined. Abnormal EKG. Lexiscan nuclear stress test: 11/27/2023In conclusion, normal Lexiscan nuclear stress test. No significant ischemiademonstrated . Mildly reduced ejection fraction. AAA screening ultrasound: 11/27/2023Unremarkab le study. No discrete abdominal aortic aneurysm identified. Cheryl Bassett MD [address] [place] [address], [id number], [place] - [facility] - [place] & [place] 12/06/2023 08:12:49
--- OUTSIDE RECORDS SUMMARY | 2024-09-08 11:11 | XMS_ITS | Clinical Summary ---
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 Name Role Phone Zofia Mcleod APRN Primary Care Provider [phone] Immunizations Immunization Administration Dates Next Due Hep A / Hep B 09/02/2018,03/07/2018 Hep B, adult 04/05/2018 Family History Medical History Relation Name Comments Conversions - Other Father Back pro blem Lung disease Father Other cancer Father Thyroid disease Father Alcohol abuse Other 1 Arthritis Other 2 Other cancer Other 3 Conversions - Other Sibling 1 Back pro blem Other cancer Sibling 2 Relation Name Status Comments Father Other 1 Other 2 Other 3 Sibling 1 Sibling 2 Social History Tobacco Use Types Packs/Day Years Used Date Smoking Tobacco: Former Alcohol Use Standard Drinks/Week Comments Yes 0 (1 standard drink = 0.6 oz pure alcohol) Alcoholic Drinks/day: Minimum alcohol consumption Sex and Gender Information Value Date Recorded Sex Assigned at Not on file Legal Sex Male 5:55 PM EDT Gender Identity Not on file Sexual Orientation Not on file Last Filed Vital Signs Vital Sign Reading Time Taken Comments Blood Pressure 124/72 10/08/2018 8:37 AM EDT Pulse 130 10/08/2018 8:37 AM EDT Temperature - - Respiratory Rate - - Oxygen Saturation - - Inhaled Oxygen Concentration - - Weight 145 kg (319 lb 7.1 oz) 10/08/2018 8:37 AM EDT Height 180.3 cm (5' 11 ) 10/08/2018 8:37 AM EDT Body Mass Index 44.55 10/08/2018 8:37 AM EDT Plan of Treatment Upcoming Encounters Date Type Department Care Team (Late st Contact Info) Description 09/25/2024 10:50 AM EDT Office Visit [facility] [address] [place] [address] Mily Malik, DPM [address] [place] [address] Health Maintenance Due Date Last Done Comments [facility]-Depression Screening 1959 [facility]-Hepatitis C Screening 1960 [facility]-Medicare Annual Wellness (AWV) 1960 [facility]-/Child/Adol SDOH Screenings 1960 [facility]- SDOH Screenings 06/09/1977 [facility]-Adult SDOH Screenings 06/09/1977 CT Colonography 06/09/2004 FIT-DNA 06/09/2004 FIT 06/09/2004 FOBT 06/09/2004 Sigmoidoscopy 06/09/2004 [id number] Vaccine () 08/21/2024 02/22/2024, 03/12/2023, 01/19/2022, Additional history exists Colonoscopy 02/05/2029 02/05/2019 [facility]-Colorectal Cancer Screening 02/05/2029 [facility]-DTaP,Tdap,and Td Vaccines (3 - Td or Tdap) 01/26/2032 01/25/2022, 04/08/2017 [facility]-Hepatitis A Vaccines Aged Out 09/02/2018, 02/23 No longer eligible based on patient's age to complete this topic [facility]-Pneumococcal Vaccine: 50+ Years Completed 08/30/2021 [facility]-Zoster Vaccines Completed 12/13/2021, [facility]-Influenza Vaccine Completed 02/06/2024 , 03/12/2023, 01/19/2022, Additional history exists [facility]-RSV Vaccine: 60+ Years or Completed 02/22/2024, 03/12/2023 HPV Vaccines Aged Out No longer eligi ble based on patient's age to complete this topic [facility]-HIB Vaccines Aged Out No longer e ligible based on patient's age to complete this topic [facility]-IPV Vaccines Aged Out No longer e ligible based on patient's age to complete this topic [facility]-Rotavirus Vaccines Aged Out No lo nger eligible based on patient's age to complete this topic Procedures Procedure Name Priority Date/Time Associated Diagnosis Comments COLONOSCOPY 02/05/2019 from Last 3 Months or Most Recently Relevant to Health Maintenance Results * COLONOSCOPY (02/05/2019) Anatomical Region Laterality Modality Endoscopy Narrative 02/05/2019 Ordered by an unspecified provider. us Historical Provider GI PROCEDURE ORDERABLES F inal Result from Last 3 Months or Most Recently Relevant to Health Maintenance Insurance MEDICARE Care Teams Embedded Hardware Engineer Relationship Specialty Start Date End Date Zofia Mcleod APRN [address] [place] [address] PCP - General 08/06/20
--- OUTSIDE RECORDS SUMMARY | 2024-09-08 11:11 | XMS_ITS | Continuity of Care Document ---
Author Organization [place] [employer], [facility] Address [address] [place] [address] Assessment Encounter Date Assessment Date Assessment LastModified by Organization Details LastModified Time 08/13/2024 08/13/2024 Medications refilled per plan below. [facility] Labs per plan below - patient to return when fasting. Follow up in 6 months for MWV, sooner if needed Not available 08/13/2024 17:04:11 Plan of Treatment Reminders Order Date Submit Date Provider Last Modified By Organization Details Last Modified Time Details Appointments None recorded. Lab lipid panel, serum 025 025 MIGUEL [facility], [address] [place] [address], [id number], 5 05:06:59 CMP, serum or plasma 025 025 [place] [facility], [address] [place] [address], [address], 5 05:06:59 CBC w/ auto diff 025 025 [place] [facility], [address] [place] [address], [address], 5 05:06:58 Referral None recorded. Procedures None recorded. Surgeries None recorded. Imaging None recorded. Medication Orders Linzess 72 mcg capsule 025 025 [facility], [address] [facility], [place], [address], 5 17:02:33 Savella 50 mg tablet 025 025 MIGUEL [facility], [facility] [place], [address], 5 13:29:15 Patient TargetsNo targets recorded. Patient InstructionsNo instructions recorded. Reason for Referral None Reported. Results Created Date Observation Date Name Description Value Unit Range Abnormal Flag Note LastModifiedBy Organization Detail LastModifiedTime 07/24/19 25 07/23/2024 XR, lumbo sacra l spine , 2 or 3 view No observ ation record ed. [facility] [address], [place], [address], 07/23/2024 15:24:24 07/24/19 25 07/23/2024 XR, hip, unila teral , 2 or 3 view No observ ation record ed. [facility] [address], [place], [address], 07/23/2024 15:23:27 Result Notes None recorded. Problems Name Problem SNOMED Code Status Onset Date Resolution Date Notes Provider Name and Address Organization Details Recorded Time Cervical radiculo ron 68739566 Active 2023 Pippa Pinto NP [address] [place] [address], [address] , [employer] 10:49:39 Lumbar spondylo sis 243141990 Active 2023 Pippa Pinto NP [address] [place] [address], [address] , [employer] 10:49:59 Degenera tion of cervical interver tebral disc 01818478 Active 2023 Pippa Pinto NP [address] [place] [address], [address] , [employer] 10:50:17 Hematoch ezia 511231143 Completed 202307/03/2024 Pippa Pinto NP [address] [place] [address], [address] , [employer] 5 09:54:15 History of bypass of stomach 564774492 Active 2023 Pippa Pinto NP [address] [place] [address], [address] , [employer] 4 12:06:46 Gastroes ophageal reflux disease without esophagi tis 107923040 Active 2023 Pippa Pinto NP [address] [place] [address], [address] , [employer] 4 12:47:55 Major depressi ve disorder 975099898 Active 2023 Pippa Pinto NP [address] [place] [address], [address] , [employer] 4 12:47:58 Benign prostati c hyperpla rnia 519420159 Active 2023 Pippa Pinto NP [address] [place] [address], [address] , [employer] 5 09:54:16 Pain in right foot 70246332692 9107 Active 2024 Pippa Pinto NP [address] [place] [address], [address] , [employer] 5 10:03:17 Plantar fasciiti s of right foot 85446571032 196808 Active 2024 Pippa Pinto NP [address] [place] [address], [address] , [employer] 5 10:03:22 Constipa tion 92301941 Active 2024 Pippa Pinto NP [address] [place] [address], [address] , [employer] 5 13:24:14 Mixed hyperlip idemia 363253809 Active 2018 Problem Code: E78.2; Problem Code Type: ICD-10; Not Available [employer] 2 22:40:08 Hyperten sive disorder 17911985 Active 2018 Problem Code: I10; Problem Code Type: ICD-10; Not Available [facility] 2 22:40:08 Allergic contact dermatit is caused by plant material 77619646803 567764 Completed 201911/28/2023 Problem Code: L23.7; Problem Code Type: ICD-10; Pippa Pinto NP [address] [place] [address], [address] [place] [address] , [employer] 4 11:53:26 Contact dermatit is caused by plants 777149788 Completed 201911/28/2023 Problem Code: L25.5; Problem Code Type: ICD-10; Pippa Pinto NP [address] [place] [address], [address] [place] [address] , [employer]. 4 10:49:30 Itching 816463373 Completed 201911/28/2023 Problem Code: L29.9; Problem Code Type: ICD-10; Pippa Pinto NP [address] [place] [address], [address] [place] [address] , [employer] 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 4 11:53:21 Pre-surg barry evaluati on Active 2018 Not Available [employer] 2 22:40:09 Influenz a vaccine needed 18455499710 06 Completed 201804/25/2019 Problem Code: Z23; Problem Code Type: ICD-10; Not Available [facility] 2 22:40:09 Aftercar e Completed 201811/28/2023 Pippa Pinto NP [address] [place] [address], [address] , [employer] 4 11:53:23 Finding of body mass index 405826244 Completed 201911/28/2023 Problem Code: Z68.41; Problem Code Type: ICD-10; Pippa Pinto NP [address] [place] [address], [address] , [employer] 4 11:53:42 Current drug user 508826357 Completed 201911/28/2023 Problem Code: Z79.899; Problem Code Type: ICD-10; Pippa Pinto NP [address] [place] [address], [address] [place] [address] , [employer]. 4 11:53:35 Finding related to ability to pass urine 607604968 Completed 201807/03/2024 Pippa Pinto NP [address] [place] [address], [address] [place] [address] , [employer]. 5 09:54:07 Problem Notes None recorded. Procedures Surgical History Date Name Laterality Status Provider Name and Address Organization Details Recorded Time 03/03/20 19 Total knee arthroplasty completed Not Available [facility] 11/29/2021 22:56:23 01/25/20 19 cholecystectomy completed Not Available [facility] 11/29/2021 22:56:23 Back Surgery completed [email or web address] 11/28/2023 11:49:46 Gastric Bypass completed [facility] 11/28/2023 11:49:46 Joint Replacement completed [facility] 11/28/2023 11:49:46 Neurosurgery completed [facility] 11/28/2023 11:49:46 Vasectomy completed [facility] [employer] 11/28/2023 11:49:46 Gallbladder Surgery completed [facility] 11/28/2023 11:49:46 Imaging Results None recorded. Procedure [...] Updated DateTime 5 175.26 cm 43 kg/m2 444520. 08 g 78 /min 94 % 94 % 138 mm[Hg] 86 mm[Hg] Lynda Allen [facility]. 5 13:17:12 Social History Question Answer Notes LastModified by Organizat ion Details LastModified Time Tobacco Smoking Status Former Smoker SocialHis [employer]Quest ion: 'Tobacco/ Alcohol/S upplement s'; SocialHis toryRespo nse: 'Former Smoker'; Not Available [facility] 11/29/2021 23:01:15 Do You Have An Advance Directive? Yes [email or web address] Information not available 11/28/2023 Is Your Home Air Conditioned? Yes [email or web address] Information not available 11/28/2023 Do You Wear A Helmet When Biking? No [email or web address] Information not available 11/28/2023 Are You Blind Or Do You Have Difficulty Seeing? No [email or web address] Information not available 11/28/2023 What Is Your Level Of Caffeine Consumption? Moderate [email or web address] Information not available 11/28/2023 What Type Of Pumping Plant Operator Do You Use? None [email or web address] Information not available 11/28/2023 In The 14 Days Before Symptom Onset, Have You Had Close Contact With A Laboratory-confir med COVID-19 While That Case Was Ill? No Information not available 11/28/2023 In The 14 Days Before Symptom Onset, Have You Had Close Contact With A Person Who Is Under Investigation For COVID-19 While That Person Was Ill? No [email or web address] Information not available 11/28/2023 Have You Been To An Area Known To Be High Risk For COVID-19? No Information not available 11/28/2023 Are You Deaf Or Do You Have Serious Difficulty Hearing? No [email or web address] Information not available 11/28/2023 What Type Of Diet Are You Following? REGULAR Information not available 11/28/2023 What Is The Highest Grade Or Level Of School You Have Completed Or The Highest Degree You Have Received? VP59384-2 [email or web address] Information not available 11/28/2023 How Many Days Of Moderate To Strenuous Exercise, Like A Brisk Walk, Did You Do In The Last 7 Days? 7 [email or web address] Information not available 11/28/2023 Have There Been Any Changes To Your Family Or Social Situation? No [email or web address] Information no t available 11/28/2023 When Did You Quit Smoking? 16+yearssinc elastcigaret te [email or web address] Information not available 11/28/2023 Are There Any Guns Present In Your Home? No [email or web address] Information not available 11/28/2023 Which Of Your Hands Is Dominant? Right Information not available 11/28/2023 What Is Your Home Situation? Both Parents [email or web address] Information not available 11/28/2023 Do You Have A Medical Power Of Microfiche Duplicator? No [email or web address] Information not available 11/28/2023 What Was The Date Of Your Most Recent Tobacco Screening? 08/13/2024 [email or web address] Information not available 08/13/2024 Do You Have Any Pets? Yes [email or web address] Information not available 11/28/2023 Do You Use Protection During Sex? No [email or web address] Information not available 11/28/2023 What Is Your Relationship Status? [email or web address] Information not available 11/28/2023 Have You Repeated Any Grades? No [email or web address] Information not available 11/28/2023 Do You Use Your Seat Belt Or Car Seat Routinely? Yes [email or web address] Information not available 11/28/2023 Are You Sexually Active? Yes [email or web address] Information not available 11/28/2023 Do You Have Any Siblings? 5 [email or web address] Information not available 11/28/2023 Do You Have Smoke And Carbon Monoxide Detectors In Your Home? Yes Information not available 11/28/2023 At What Age Did You Start Smoking Tobacco? 11 [email or web address] Information not available 11/28/2023 Are You Passively Exposed To Smoke? No [email or web address] Information no t available 11/28/2023 Are There Any Smokers In Your House? No [email or web address] Information not available 11/28/2023 How Much Tobacco Do You Smoke? No [email or web address] Information not available 11/28/2023 Do You Participate In Social Media? Yes [email or web address] Information not available 11/28/2023 What Types Of Sporting Activities Do You Participate In? Walk One Mile A Day In 23 Minutes [email or web address] Information not available 11/28/2023 Do You Use Sunscreen Routinely? No [email or web address] Information not available 11/28/2023 Has Tobacco Cessation Counseling Been Provided? No Information not available 11/28/2023 How Many Years Have You Smoked Tobacco? 27 [email or web address] Information not available 11/28/2023 Have You Recently Traveled Abroad? No [email or web address] Information not available 11/28/2023 Do You Have Difficulty Walking Or Climbing Stairs? No Information not available 11/28/2023 Are You Currently In School? No [email or web address] Information not available 11/28/2023 Do You Have Any Dietary Restrictions? No [email or web address] Information not available 11/28/2023 Sex: Unknown Functional Status Question Answer Note LastModified by Organizat ion Details LastModified Time Do you use any illicit or recreational drugs? No Information not available 11/28/2023 Do you or have you ever used any other forms of tobacco or nicotine? No [email or web address] Information not available 11/28/2023 What is your level of alcohol consumption? None [email or web address] Information not available 11/28/2023 Are you currently employed? No Information not available 11/28/2023 Do you have transportation difficulties? No [email or web address] Information not available 11/28/2023 Do you have difficulty doing errands alone? No [email or web address] Information not available 11/28/2023 Are you able to care for yourself? Yes [email or web address] Information not available 11/28/2023 Do you have difficulty dressing or bathing? No [email or web address] Information not available 11/28/2023 What is your exercise level? Moderate Information not available 11/28/2023 Mental Status Question Answer Note LastModified by Organizat ion Details LastModified Time Do you feel stressed (tense, restless, nervous, or anxious, or unable to sleep at night)? [id number] Information not available 11/28/2023 Do you have difficulty concentrating, remembering or making decisions? No [email or web address] Information no t available 11/28/2023 Are you or have you been involved with bullying? No [email or web address] Information not available 11/28/2023 Family History Relationship Description Onset Age of this Age Resolved Age Notes LastModified by Organization Details LastModified Time Unspecified Relation Family history of Hypertension Relati ve: ''; [email or web address] Not available 11/28/2023 11:49:44 Unspecified Relation Family history of Depression Relati ve: ''; [email or web address] Not available 11/28/2023 11:49:44 Unspecified Relation Family history of malignant neoplasm Relati ve: ''; [email or web address] Not available 11/28/2023 11:49:44 Unspecified Relation Family history of malignant neoplasm Relati ve: ''; [email or web address] Not available 11/28/2023 11:49:44 Unspecified Relation Harmful pattern of use of alcohol [email or web address] Not available 2023 11:49:44 Mother Arthritis [email or web address] Not availab le 11/28/2023 11:49:44 Mother Hypertensive disorder [email or web address] Not available 2023 11:49:44 Sister Malignant neoplasm of lung [email or web address] Not available 2023 11:49:44 Sister Hypertensive disorder Not available 2023 11:49:44 Paternal Grandfather Harmful pattern of use of alcohol [email or web address] Not available 2023 11:49:44 Paternal Grandfather Malignant neoplasm of lung [email or web address] Not available 2023 11:49:44 Father Malignant neoplasm of lung [email or web address] Not available 2023 11:49:44 Notes:*Procedure Description : [...] trivalent, PF 4 completed Pippa Pinto, SHARLENE [address] [place] [address], [address], [employer] 02/06/2024 16:27:28 Influenza, MDCK, quadrivalent, preservative 9 completed Not Available [employer] 11/29/2021 23:54:26 COVID-19, mRNA, LNP-S, PF, joshua-sucrose, 30 mcg/0.3 mL 4 completed Florencia mills [employer] 02/22/2024 12:02:48 RSV, recombinant, protein subunit RSVpreF, adjuvant reconstituted, 0.5 mL, PF 4 completed Florencia mills [employer] 02/22/2024 12:03:37 Influenza, recombinant, quadrivalent, PF 2 completed Pippa Pinto, [employer] [address] [place] [address], [address], [employer] 02/27/2024 10:48:15 Influenza, recombinant, quadrivalent, PF 2 completed Pippa Pinto, [employer] [address] [place] [address], [address], [employer] 02/27/2024 10:48:15 zoster recombinant 2 completed Pippa Pinto, [employer] [address] [place] [address], [address], [employer] 02/27/2024 10:48:15 zoster recombinant 2 completed Pippa Pinto, [employer] [address] [place] [address], [address], [employer] 02/27/2024 10:48:15 COVID-19, mRNA, LNP-S, PF, 100 mcg/0.5mL dose or 50 mcg/0.25mL dose 1 completed Pippa Pinto, [employer] [address] [place] [address], [address], [employer] 02/27/2024 10:48:15 COVID-19, mRNA, LNP-S, PF, 100 mcg/0.5mL dose or 50 mcg/0.25mL dose 1 completed Pippa Pinto, [employer] [address] [place] [address], [address], [employer] 02/27/2024 10:48:15 COVID-19, mRNA, LNP-S, PF, 30 mcg/0.3 mL dose 1 completed Pippa Pinto, [employer] [address] [place] [address], [address], [employer] 02/27/2024 10:48:15 Pneumococcal conjugate PCV20, polysaccharide [id number] conjugate, adjuvant, PF 2 completed Pippa Pinto, [employer] [address] [place] [address], [address], [employer] 02/27/2024 10:48:15 COVID-19, mRNA, LNP-S, PF, 30 mcg/0.3 mL dose, joshua-sucrose 2 completed Pippa Pinto, [employer] [address] [place] [address], [address], [employer] 02/27/2024 10:48:15 COVID-19, mRNA, LNP-S, bivalent, PF, 30 mcg/0.3 mL dose 2 completed Pippa Pinto, [employer] [address] [place] [address], [address], [employer] 02/27/2024 10:48:15 RSV, recombinant, protein subunit RSVpreF, adjuvant reconstituted, 0.5 mL, PF 3 completed Pippa Pinto, [employer] [address] [place] [address], [address], [employer] 02/27/2024 10:48:15 COVID-19, mRNA, LNP-S, PF, 50 mcg/0.5 mL 3 completed Pippa Pinto, [employer] [address] [place] [address], [address], [employer] 02/27/2024 10:48:15 Tdap 2 completed Pippa Pinto, [employer] [address] [place] [address], [address], [employer] 02/27/2024 10:48:15 Influenza, split virus, trivalent, PF 8 completed Pippa Pinto, [employer] [address] [place] [address], [address], [employer] 02/27/2024 10:48:15 Hep B, adult 9 completed Pippa Pinto, [employer] [address] [place] [address], [address], [employer] 02/27/2024 10:48:15 DTaP 8 completed Pippa Pinto, [employer] [address] [place] [address], [address], [employer] 02/27/2024 10:48:15 Influenza, split virus, quadrivalent, PF 3 completed Pippa Pinto NP [address] [place] [address], [address], [facility] [employer] 02/27/2024 10:48:15 Hep A-Hep B 9 completed Pippa Pinto NP [address] [place], [address], [facility] [employer] 02/27/2024 10:48:15 Hep A-Hep B 8 completed Pippa Pinto NP [address] [place] [address], [address], [facility] [employer] 02/27/2024 10:48:15 Past Encounters Encounter ID Performer Location Encounter Start Date Encounter Closed Date Diagnosis/Indication Diagnosis SNOMED-CT Code Diagnosis ICD10 Code Diagnosis Note [id number] Pippa Pinto NP [address] [address] 08/13/2024 12:55:26 08/13/2024 13:50:49 Constipation 56134650 K59.00 Hypertensive disorder 38 505520 I10 Gastroesop hageal reflux disease without esophagitis 834105437 K21.9 Mixed hyperlipidemia 267 128315 E78.2 Benign pro static hyperplasia 160844024 N40.1 Major depr essive disorder 770448667 F32.9 Health Concerns Section Related Observation LastModified by Organization Detai ls LastModified Time None Recorded Concern Status LastModified by Organization Details LastModified Time None Recorded Payers Encounter Date Sequence Insurance Name Policy Number Policy Zarate Covered Member ID Zarate Member ID Guarantor Name 08/13/2024 2 FOR LIFE () [employer] [id number] [employer] 08/13/2024 1 [place] G[employer] [id number] [employer] Notes Date Note Type Note Provider Name and Address Organization Details Recorded Time 08/13/2024 text/html Patient presents for follow up on foot pain. States that he sees podiatry at on 09/25.Has been prescribed linzess by gastroenterology, but they did not give him refills. Needs RF. Linzess is working well.Taking medications as prescribed. Pippa Pinto NP [address] [place] [address], [place], [address], [facility] [employer] 08/13/2024 17:05:01
--- NOTE | 2024-09-08 11:59 | EXP.PAIN.SOA ---
[facility] Disclaimer: The information contained in this section may have been updated after the patient was seen, as this information can be updated by other users. Medical History High cholesterol High glucose Hypertension Cholecystectomy planned Elbow injury Vasectomy planned Broken back Surgical History Total knee replacement status H/O gastric bypass Family History Sister Cancer Father Cancer Grandfather Cancer Mother Hypertension Other Diabetes Thyroid disorder Social History Smoking Status: Former smoker alcohol intake: never substance use type: denies use current occupational status: other Travel in the last 8 weeks?: None PM Subjective & Objective Subjective Subjective:: Patient is a pleasant 64-year-old male who presents today for follow-up of his lumbar epidural steroid injection L4-L5 on 08/19/2024. Today he does relate that he has had 85% improvement and feels like that injection did significantly help with his legs rather than his back. He does state that that has improved dramatically. Patient rates that a 2 out of 10 if anything at all. Patient does complain about his overall low back pain and rates that a 6 or an 8 out of 10 with increased activity. He does state that pain seems to be staying more at his back and that it is worse with certain movements such as bending, lifting or twisting. Patient does make mention today that he did last have a lumbar ablation back about a year to a year and a half ago with [facility] and that it did significantly help for more than 6 months at at least 90% improvement. Patient does state that he would like to see about trying to get this redone as the pain is interfering with his ability perform activities of daily living such as cooking and cleaning. Patient is prescribed pregabalin 75 mg 3 times a day from the [place]. His Buck has been reviewed and is appropriate. Review of Systems: General: No recent weight changes, no fever, no sleep disturbances Respiratory: No cough, no shortness of air, no recurring pulmonary infections Cardiovascular/peripheral vascular: No chest pain, no palpitations, no edema, no shortness of breath Gastrointestinal: No new onset incontinence, normal bowel movements reported Genitourinary: No new onset incontinence Musculoskeletal: Low back pain Psychiatric: [Normal mood/affect] Neurological: [Denies weakness in extremities], [denies balance issues] Pain at rest (0-10 scale): 6 Objective Objective:: Physical Exam: General: Alert and oriented x3, no acute distress, pleasant and cooperative Lungs: Respirations even and unlabored, symmetrical chest expansion Eyes: PERRL Musculoskeletal: Flexion and extension of lumbar [spine] somewhat guarded secondary to pain, [antalgic gait noted] positive Kemps test Neurological: Speech clear, no gross sensory deficit Has patient had previous pain injection?: Yes Percent improvement in pain since last injection: 85% improvement Conservative treatment options previously tried: Home exercise plan Length of treatment: Longer than 12 weeks Meds Home Medications and Allergies Home Medications ?Medication ?Instructions ?Recorded ?Confirmed ?Type aspirin 81 mg tablet,delayed 81 mg PO DAILY 01/07/24 08/19/24 History release (Adult Aspirin Regimen) diclofenac sodium 1 % topical gel 1 ea topical DIRECTED 01/07/24 08/19/24 History Arthritis, fybromyalga finasteride 5 mg tablet 5 mg PO DAILY enlarged prostrate 01/07/24 08/19/24 History mecobalamin (vitamin B12) 1,000 1,000 mcg PO DAILY 01/07/24 08/19/24 History mcg chewable tablet (B12 Active) metoprolol succinate 50 mg 50 mg PO DAILY High Blood Pressure 01/07/24 08/19/24 History tablet,extended release 24 hr milnacipran 50 mg tablet (Savella) 50 mg PO BID Fybromyalgia 01/07/24 08/19/24 History pantoprazole 40 mg tablet,delayed 80 mg PO BID Acid Reflux 01/07/24 08/19/24 History release tamsulosin 0.4 mg capsule 0.8 mg PO BID treat enlarged 01/07/24 08/19/24 History prostrate sucralfate 100 mg/mL oral 10 ml PO DAILY 04/08/24 08/19/24 History suspension polyethylene glycol 3350 17 17 g PO DAILY 07/08/24 08/19/24 History gram/dose oral powder (Miralax) psyllium husk 3.4 gram/5.4 gram 1 tbsp PO DAILY 07/08/24 08/19/24 History oral powder (Metamucil) pregabalin 75 mg capsule (Lyrica) 75 mg PO TID #90 caps 07/25/24 08/19/24 Rx linaclotide 72 mcg capsule 72 mcg PO DAILY #90 caps 09/01/24 Rx (Linzess) New Prescriptions to Start Prescriptions: Allergies Allergy/AdvReac Type Severity Reaction Status Date / Time No Known Allergies Allergy Verified 07/08/24 09:50 Assessment and Plan *Assessment and plan (1) Low back pain: Status: Acute Category: Medical Code(s): M54.50 - Low back pain, unspecified (2) Lumbar facet arthropathy: Status: Acute Category: Medical Code(s): M47.816 - Spondylosis without myelopathy or radiculopathy, lumbar region Plan Patient is having more tenderness in his low back with limited range of motion at a positive Kemps test during today's exam. I did review over with the patient that if it has been longer than 2 years with the lumbar ablation that we would have to start back from scratch with the blocks however patient does feel like it really is only been about a year to a year and a half and that it had been working well up until recently. Patient does state that he got more than 90% improvement for longer than 6 months. I did discuss the risk and benefits of the lumbar radiofrequency ablation and he would like to proceed forward with this option. Patient has tried and failed conservative therapy including oral medications, heat and ice, topicals, physical therapy and continued at home stretching exercise for longer than 12 weeks that was physician guided. We will plan on submitting to insurance for the lumbar radiofrequency ablation bilaterally L4-L5 and L5-S1 under fluoroscopy. Patient agrees with this plan of care. Patient did not have his last radiofrequency ablation or blocks previous with our office so we do not have specific dates when these procedures were performed. Patient has been instructed to contact the clinic with any concerns before the next appointment. Dr. Villafuerte has reviewed this note and agrees with this plan of care. This note was dictated using voice recognition software and make contain errors or omissions. All injections are used with Lidocaine, Bupivacaine and dexamethasone. Occasionally urine drug screen is needed to verify patient's compliance with our office pain contract. This is ordered based off specific treatments related to chronic pain with the potential to abuse certain medications.
[2024-09-08 13:00] VITALS: BP 104/65; PULSE 68; RESP 18; O2SAT 99; BMI 42.2
== END 2024-09-08 23:59 | disposition home or self-care (01) ==
LOC: SC.PAIN 11:05
PROVIDERS: PCP Nurse Practitioner Family; Visit Provider Nurse Practitioner Family
DX: M47.816 Spondylosis without myelopathy or radiculopathy, lumbar region (principal); Z79.899 Other long term (current) drug therapy
CPT/HCPCS: 99212; G0463

== ENCOUNTER 2024-09-30 13:52 | Day surgery (SDC) | payer MEDICARE, OTHER, SELFPAY ==
[2024-09-30 14:00] VITALS: BP 149/97; PULSE 77; RESP 18; O2SAT 100; BMI 42.0
[2024-09-30] MEDS: DEXAMETHASONE 10MG/ML 1ML VIAL 10 MG (14:33)
[2024-09-30 14:34] VITALS: BP 116/63; PULSE 71; RESP 18; O2SAT 94
[2024-09-30] MEDS: LIDOCAINE 1% 5ML PF VIAL 5 ML (14:34)
[2024-09-30] MEDS: BUPIVACAINE 0.25% 10ML INJ 25 MG IJ (14:34)
[2024-09-30 14:35] VITALS: BP 116/63; PULSE 71; RESP 18; O2SAT 94
--- NOTE | 2024-09-30 14:43 | P.PCN_ITS ---
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 Lumbar spondylosis. Multilevel lumbar facet arthropathy. Post-procedure Diagnosis:: Same Indications for Procedure:: Patient is veryPatient is very pleasant 64-year-old male who comes our clinic today for bilateral lumbar L4-5, L5-S1 radiofrequency ablation. Patient describes low lumbar back pain as constant, dull, aching. He reports difficulty with flexion, extension, left and right rotation of the lumbar spine. He reports responding well to medial branch blocks previously at the same level. He rates his pain 6/10. Procedure Details:: Procedure Details: Lumbar RFA Informed consent was obtained and the risk and benefits of the procedure was explained to the patient. Patient was placed prone on the procedure table. The patient was prepped and draped in sterile fashion. C-arm fluoroscopy was used to view the lumbar spine. The skin and subcutaneous tissues were anesthetized using lidocaine. I placed 20-gauge RF needles into the facet joints of L3-L4, L4-L5 and L5-S1 bilaterally. We underwent sensory stimulation. There is good sensory stimulation at 0.8 V. We underwent motor stimulation. There is no motor stimulation at 2 V. We then anesthetized these levels with lidocaine and Depo- Medrol. I used a total of 10 mg of dexamethasone for all 3 levels. I then burned all 3 levels of L3-L4, L4-5 and L5-S1 bilaterally for 4 minutes at 80 ?C. Patient tolerated the procedure well with no complication. Plan and Disposition:: We will follow-up with this patient in 2 weeks. We will reevaluate her symptoms at that time. Plan and Disposition:: Patient was discharged without incident.
[2024-09-30 14:48] VITALS: BP 108/69; PULSE 64; RESP 18; O2SAT 100
== END 2024-09-30 14:48 | disposition home or self-care (01) ==
PROVIDERS: PCP Nurse Practitioner Family; Visit Provider Nurse Anesthetist, Certified Registered
DX: M47.26 Other spondylosis with radiculopathy, lumbar region (principal); M51.16 Intervertebral disc disorders with radiculopathy, lumbar region; M53.86 Other specified dorsopathies, lumbar region; E78.00 Pure hypercholesterolemia, unspecified; I10 Essential (primary) hypertension; R73.9 Hyperglycemia, unspecified; Z98.84 Bariatric surgery status; M19.91 Primary osteoarthritis, unspecified site; M79.7 Fibromyalgia; K21.9 Gastro-esophageal reflux disease without esophagitis; Z87.891 Personal history of nicotine dependence; Z79.899 Other long term (current) drug therapy; Z79.82 Long term (current) use of aspirin; Z96.659 Presence of unspecified artificial knee joint
CPT/HCPCS: 64635; 64636; J0665; J1100; J2003

== ENCOUNTER 2024-10-15 14:06 | Outpatient (POV) | payer MEDICARE, OTHER, SELFPAY ==
--- OUTSIDE RECORDS SUMMARY | 2024-09-25 10:50 | XMS_ITS | Encounter Summary ---
Author Organization Healthcare Address [address] [place] [address] Care Team Providers Care Retail Analytics Manager Name Role Phone Zofia Mcleod [employer] Primary Care Provider [phone] Reason for Visit * Reason Comments Consult * Consultation (Routine) - Closed Specialty Diagnoses / Procedures Referred By Phyllis sosa Referred To Contact Podiatry Diagnoses Right foot pain Bone spur of right foot Pippa Pinto, [employer] [address] [place] [address] Phone: tel: fax: Referral ID Status Reason Start Date Expiration Date V isits Requested Visits Authorized [id number] Closed Specialty Services Required 07/25/2024 01/24/2026 1 1 Encounter Details Date Type Department Care Team (Late st Contact Info) Description 09/25/2024 10:50 AM EDT Office Visit [facility] [address] [place] [address] Mily Malik, DPThompson [address] [place] [address] Peroneal tendonitis, right (Primary Dx); Difficulty walking; Chronic pain of right ankle; Foot pain, right Social History Tobacco Use Types Packs/Day Years Used Date Smoking Tobacco: Former Tobacco Cessation:Counseling Given: Not Answered Alcohol Use Standard Drinks/Week Comments Yes 0 (1 standard drink = 0.6 oz pure alcohol) Alcoholic Drinks/day: Minimum alcohol consumption Sex and Gender Information Value Date Recorded Sex Assigned at Not on file Legal Sex Male 5:55 PM EDT Gender Identity Not on file Sexual Orientation Not on file documented as of this encounter Last Filed Vital Signs Vital Sign Reading Time Taken Comments Blood Pressure 115/73 09/25/2024 10:42 AM EDT Pulse 69 09/25/2024 10:42 AM EDT Temperature 36.7 C (98.1 F) 09/25/2024 10:42 AM EDT Respiratory Rate - - Oxygen Saturation 96% 09/25/2024 10:42 AM EDT Inhaled Oxygen Concentration - - Weight 129 kg (285 lb) 09/25/2024 10:42 AM EDT Height 175.3 cm (5' 9 ) 09/25/2024 10:42 AM EDT Body Mass Index 42.09 09/25/2024 10:42 AM EDT documented in this encounter Miscellaneous Notes * Progress Notes - Mily Malik DPM - 09/25/2024 10:50 AM EDT Subjective Patient ID: Gt Grimes is a 64 y.o. male. Chief Complaint: Consult of the Right Foot HPI Patient complains of pain to right foot for the last year. Says that he has lost a lot of weight however recently he has been getting some over. He likes to walk 3 miles a day however has not been able to walk at all lately because of the foot pain. Denies any injury to the foot as of late. He doesnote a vague history that happened while he was in the [employer] but it is not entirely sure what happene d. Patient is relatively sedentary. Had an x-ray done of his foot at [facility]. He has been doing physical therapy for a while however stopped recently as he feels like his motionand strength is relatively normal. He says with the physical therapy also cause more pain to the area. ROS: Otherwise negative or noncontributory to chief complaint except as noted in history of present illness Past Medical History[1] Current Medications[2] No surgery found No surgery found The following portions of the chart were reviewed this encounter and updated as appropriate: Meds Problems Objective Psychological: Appropriate mood and affect HENT: Normal Eyes: EOMI Cardiac: Well perfused, extremities pink Respiratory: nonlabored respirations on room air, symmetric chest rise and fall. Physical Exam: MSK: Tenderness: Present to: Along the course and insertion of the peroneal tendons at the level of the 5th metatarsal base. Tenderness appreciated to the 5th metatarsal head plantar lateral aspect. Mild tenderness appreciated of the subtalar joint lateral aspect. No tenderness to palpation to any otherpedal structure. Gait: Antalgic, unassisted Muscle testin/5 for all pedal musculature b/l ROM: WNL for all major pedal joints Deformity: No gross deformity noted Neuro: Light touch Intact Protective sensation intact to all areas with use of monofilament. Vibratory sensation Intact Vasc: DP and PT pulses b/l: Palpable CFT is Brisk to all present digits Edema Absent Derm: Skin is grossly warm dry and supple No open wounds noted. Image Results: I have independently reviewed and interpreted imaging results today: X-ray external, right foot three views, nonweightbearing. There was evidence of possible fracture versus accessory bone to the lateral aspect of the cuboid. Bone spur/old avulsion fracture noted to the 5th metatarsal base. No other fracture or dislocation noted. No other osseous abnormalities appreciated Assessment/Plan Encounter Diagnoses: Peroneal tendonitis, right Difficulty walking Chronic pain of right ankle Foot pain, right Orders Placed This Encounter Lace-Up Ankle (right) PLAN: _ Patient is suffering from peroneal tendinitis. I am suggesting use of the lace- up brace for extra support. I am also recommending he obtained an MRI to evaluate the ligamentous and tendinous structures around the ankle. Patient was amenable to these recommendations. No activity restrictions at thistime. Return to clinic after MRI. Patient demonstrated reasonable understanding of the current condition, treatment options, and prognosis. All questions were welcomed and answered to the patient's satisfaction. This note was partially generated using [employer] Fluency Direct system, and there may be some incorrect words, spellings, and punctuation that were not noted in checking the note before saving. [1] Past Medical History: Diagnosis Date Personal history of other diseases of the circulatory system History of cardiomegaly Personal history of other diseases of the digestive system History of gastroesophageal reflux (GERD) Personal history of other diseases of the digestive system History of hepatomegaly Personal history of other diseases of the nervous system and sense organs History of sleep apnea Personal history of other endocrine, nutritional and metabolic disease History of high cholesterol Prediabetes Prediabetes [2] Current Outpatient Medications: ASPIRIN 81 MG chewable tablet, Chew 1 tablet 1 time each day., Disp: , Rfl: Cyanocobalamin 1000 MCG capsule, Take 1 tablet by mouth daily., Disp: , Rfl: diclofenac (Voltaren) 1 % topical gel, Apply topically., Disp: , Rfl: finasteride (Proscar) 5 MG tablet, Take 1 tablet by mouth., Disp: , Rfl: Glucosamine Sulfate (SM Glucosamine Sulfate) 1000 MG tablet, Take by mouth., Disp: , Rfl: Linzess 72 MCG capsule capsule, , Disp: , Rfl: metoprolol succinate XL (Toprol-XL) 50 MG 24 hr tablet, Take 1 tablet by mouth daily., Disp: , Rfl: Multiple Vitamin (MULTIVITAMINS PO), Take by mouth., Disp: , Rfl: pantoprazole (Protonix) 40 MG EC tablet, Take 1 tablet by mouth daily., Disp: , Rfl: pantoprazole (Protonix) 40 MG EC tablet, Take 1 tablet by mouth., Disp: , Rfl: pravastatin (Pravachol) 40 MG tablet, Take 1 tablet by mouth daily., Disp: , Rfl: predniSONE 10 MG (21) tablet therapy pack, follow package directions, Disp: , Rfl: pregabalin (Lyrica) 75 MG capsule, Take 1 capsule by mouth., Disp: , Rfl: Savella 50 MG tablet, Take 1 tablet by oral route 2 times per day, Disp: , Rfl: sucralfate (Carafate) 1 g tablet, Take 1 tablet by mouth., Disp: , Rfl: tamsulosin (Flomax) 0.4 MG 24 hr capsule, take 2 capsules (0.8 mg) by oral route once daily 1/2 hour following the same meal each day, Disp: , Rfl: documented in this encounter Plan of Treatment Upcoming Encounters Date Type Department Care Team (Late st Contact Info) Description 11/13/2024 8:00 AM EDT Appointment [facility] [address] [place] [address] 11/17/2024 11:20 AM EDT Office Visit [facility] [address] [place] [address] Mily Malik S, DPM [address] [place] [address] documented as of this encounter Visit Diagnoses Diagnosis Peroneal tendonitis, right- Primary Difficulty walking Difficulty in walking Chronic pain of right ankle Foot pain, right Pain in soft tissues of limb documented in this encounter Additional Health Concerns Assessment Noted Time A fall risk assessment has been complete d for the patient 09/25/2024 10:36 AM EDT A Body Mass Index follow-up plan has been documented for the patient 09/25/2024 11:57 AM EDT documented as of this encounter Care Teams Retail Analytics Manager Relationship Specialty Start Date End Date Zofia Mcleod, TRACY [address] [place] [address] PCP - General 08/06/20 documented as of this encounter
--- OUTSIDE RECORDS SUMMARY | 2024-10-15 14:08 | XMS_ITS | Continuity of Care Document ---
Author Name [facility] Organization [facility] Care Team Providers Care Ophthalmic Technologist Name Role Phone [facility] Unavailable Unavailable Problems Combined list of problems from Department of [facility] facilities. It does not include entries that were removed or entered in error. Problem Status Onset Date Problem Type Date of Resolution Comments Source Benign essential hypertension Active Condition [facility] Benign prostatic hyperplasia Active Condition [facility] Chronic low back pain Active Condition [facility] Exposure to potentially hazardous substance Active Condition [facility] Fibromyalgia Active Condition [facility] Gastroesophageal reflux disease without esophagitis Active Condition [facility] Hyperlipidemia [facility] Pain of right shoulder joint Active Condition [facility] Diagnosis: ICD-10-CM K02.52 Dental caries on pit and fissure surfc penetrat into dentin Active Diagnosis [facility] Diagnosis: ICD-10-CM 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 Diagnosis: ICD-10-CM R68.2 Dry mouth, unspecified Active Diagnosis [facility] Diagnosis: ICD-10-CM Z01.20 Encounter for dental exam and cleaning w/o abnormal findings Active Diagnosis [facility] Diagnosis: ICD-10-CM H43.813 Vitreous degeneration, bilateral Active Diagnosis [facility] Diagnosis: ICD-10-CM Z65.8 Oth problems related to psychosocial circumstances Active Diagnosis [facility] Diagnosis: ICD-10-CM I10 Essential (primary) hypertension Active Diagnosis [facility] Diagnosis: ICD-10-CM Z77.29 Contact with and exposure to other hazardous substances Active Diagnosis [facility] Medications Combined list of outpatient medications from Department of Defense and [facility] facilities.Medications provided include 1) outpatient medications from the last 15 months, and 2) patient-reported medications. Medication Details Route Status Patient Instructions Prescription Expires Prescription Number Last Dispense Date Ordering Provider Order Date Order Qty Source ASPIRIN 81MG TAB,EC TAKE ONE TABLET BY MOUTH DAILY FOR HEART ORAL ACTIVE 05/03/2025 [id number] REYNALDO BARFIELD S 2024 90 [place] [facility] CLENPIQ (sodium picosulfate /magnesium oxide/citri c acid), 10-3.5/175, SOLUTION, ORAL, [employer], 350 ml BOTTLE Active [id number] 2023 350 Pharmac y Data Transac tion Service Facilit y CYANOCOBALA MIN 1000MCG TAB TAKE ONE TABLET BY MOUTH DAILY ORAL ACTIVE REYNALDO BARFIELD S 2024 [place] [facility] DICLOFENAC NA 1% GEL,TOP APPLY 2 GRAM STRIP TO AFFECTED AREA EVERY 6 HOURS NEEDED FOR PAIN TOPICA L ACTIVE 05/03/2025 [id number] REYNALDO BARFILED S 2024 200 [place] [facility] FINASTERIDE (FINASTERID E), 5 MG, TABLET, ORAL, [employer], 90 ea. BOTTLE Cancele d [id number] : 2023 0 Pharmac y Data Transac tion Service Facilit y FINASTERIDE (FINASTERID E), 5 MG, TABLET, ORAL, [employer], 90 ea. BOTTLE Active [id number] 2023 30 Pharmac y Data Transac tion Service Facilit y FINASTERIDE 5MG TAB TAKE ONE TABLET BY MOUTH DAILY FOR PROSTATE ORAL ACTIVE 05/03/2025 [id number] REYNALDO BARFIELD S 2024 90 [place] [facility] GLUCOSAMINE CAP/TAB TAKE 1 CAP/TAB BY MOUTH DAILY ORAL ACTIVE REYNALDO BARFIELD S 2024 [place] [facility] METOPROLOL SUCCINATE 100MG TAB,SA TAKE ONE-HALF TABLET BY MOUTH DAILY FOR BLOOD PRESSURE ORAL ACTIVE 05/03/2025 [id number] REYNALDO BARFIELD S 2024 45 [place] [facility] MILNACIPRAN HCL 50MG TAB TAKE ONE TABLET BY MOUTH TWICE A DAY ORAL ACTIVE REYNALDO BARFIELD S 2024 [place] [facility] MULTIVITAMI NS CAP/TAB TAKE 1 CAP/TAB BY MOUTH DAILY ORAL ACTIVE REYNALDO BARFIELD S 2024 [place] [facility] PANTOPRAZOL E NA 40MG TAB,EC TAKE ONE TABLET BY MOUTH ONCE A DAY 30 MINUTES BEFORE A MEAL FOR HEARTBUR N -TAKE ON AN EMPTY STOMACH. ORAL ACTIVE 05/03/2025 [id number] 5 REYNALDO BARFIELD S 2024 90 [place] [facility] PANTOPRAZOL E SODIUM (pantoprazo le sodium), 40 MG, TABLET , ORAL, [employer] 1000 ea. BOTTLE Cancele d [id number] : 2023 0 Pharmac y Data Transac tion Service Facilit y PANTOPRAZOL E SODIUM (pantoprazo le sodium), 40 MG, TABLET , ORAL, [employer] 1000 ea. BOTTLE Active [id number] 2023 180 Pharmac y Data Transac tion Service Facilit y PREGABALIN 75MG CAP,ORAL TAKE ONE CAPSULE BY MOUTH THREE TIMES A DAY FOR NERVE PAIN ORAL ACTIVE 03/03/2025 [id number] 5 REYNALDO BARFIELD S 2024 90 [place] [facility] PREGABALIN 75MG CAP,ORAL TAKE ONE CAPSULE BY MOUTH THREE TIMES A DAY FOR NERVE PAIN ORAL DISCONT INUED 11/02/2024 [id number] 5 REYNALDO BARFIELD S 2024 90 [place] [facility] ROSUVASTATI N CA 40MG TAB TAKE ONE-HALF TABLET BY MOUTH AT BEDTIME FOR CHOLESTE ROL ORAL ACTIVE 05/03/2025 [id number] REYNALDO BARFIELD S 2024 45 [place] [facility] ROSUVASTATI N CALCIUM (rosuvastat in calcium), 20 MG, TABLET, ORAL, [employer], 90 ea. BOTTLE Active [id number] 2023 90 Pharmac y Data Transac tion Service Facilit y SUCRALFATE 1GM TAB TAKE ONE TABLET BY MOUTH TWICE A DAY NEEDED FOR STOMACH ORAL ACTIVE 10/23/2024 [id number] REYNALDO BARFIELD S 2024 180 [place] [facility] SUCRALFATE 1GM TAB TAKE ONE TABLET BY MOUTH TWICE A DAY NEEDED FOR STOMACH ORAL DISCONT INUED 07/31/2024 [id number] REYNALDO BARFIELD S 2024 180 [place] [facility] TAMSULOSIN HCL (TAMSULOSIN HCL), 0.4 MG, CAP.SR 24H, ORAL, [employer], 1000 ea. BOTTLE Cancele d [id number] : 2023 0 Pharmac y Data Transac tion Service Facilit y TAMSULOSIN HCL (TAMSULOSIN HCL), 0.4 MG, CAP.SR 24H, ORAL, [employer], 1000 ea. BOTTLE Active [id number] 2023 180 Pharmac y Data Transac tion Service Facilit y TAMSULOSIN HCL 0.4MG CAP TAKE TWO CAPSULES BY MOUTH EVERY EVENING FOR PROSTATE ORAL ACTIVE 05/03/2025 [id number] REYNALDO BARFIELD S 2024 180 [place] [facility] TRAZODONE HCL (trazodone HCl), 100 MG, TABLET, ORAL, [employer], 1000 ea. BOTTLE Cancele d [id number] : 2023 0 Pharmac y Data Transac tion Service Facilit y TRAZODONE HCL (trazodone HCl), 100 MG, TABLET, ORAL, [employer], 1000 ea. BOTTLE Active [id number] 4 2023 90 Pharmac y Data Transac tion Service Facilit y Allergies, Adverse Reactions, Alerts Combined list of allergies from Department of Defense and Veterans Affairs facilities. It does not include entries that were removed or entered in error. Substance Category Reaction Severity Reaction type Status Date Reported Comments Source TETANUS TOXOID Propensity to adverse reactions to drug (finding) Eruption active 1 [facility] TETANUS TOXOID Propensity to adverse reactions to drug (finding) Urticaria active 2 [facility] Immunizations Combined list of available immunizations from the Department of Defense and Veterans Affairs facilities. Immunization Series Date Given Administered By Site Reaction Lot Number CVX Code Drug Vamp Stitcher Status Comments Source COVID-19 (PFIZER), MRNA, LNP-S, PF, NILESH-SUCROSE, 30 MCG/0.3 ML (AGES 12+ YEARS) 7 2023 309 complet ed HISTORICA L INFORMATI ON - FROM OTHER REGISTRY, [place] [facility] RSV, RECOMBINANT, PROTEIN SUBUNIT RSVPREF3, ADJUVANT RECONSTITUTED , 0.5 ML, PF 2023 303 complet ed HISTORICA L INFORMATI ON - FROM OTHER REGISTRY, [place] [facility] INFLUENZA, SPLIT VIRUS, TRIVALENT, PF 6 2023 140 complet ed HISTORICA L INFORMATI ON - FROM OTHER REGISTRY, [place] [facility] COVID-19 (MODERNA), MRNA, LNP-S, PF, 50 MCG/0.5 ML (AGES 12+ YEARS) 6 2022 312 complet ed HISTORICA L INFORMATI ON - FROM OTHER REGISTRY, [place] [facility] INFLUENZA, SPLIT VIRUS, QUADRIVALENT, PF 5 2022 150 complet ed HISTORICA L INFORMATI ON - FROM OTHER REGISTRY, [place] [facility] RSV, RECOMBINANT, PROTEIN SUBUNIT RSVPREF3, ADJUVANT RECONSTITUTED , 0.5 ML, PF 1 2022 303 complet ed HISTORICA L INFORMATI ON - FROM OTHER REGISTRY, [place] [facility] TDAP 2 2021 115 complet ed HISTORICA L INFORMATI ON - FROM OTHER REGISTRY, [place] [facility] COVID-19 (PFIZER), MRNA, LNP-S, BIVALENT, PF, 30 MCG/0.3 ML DOSE 5 2021 300 complet ed HISTORICA L INFORMATI ON - FROM OTHER REGISTRY, [place] [facility] INFLUENZA, RECOMBINANT, QUADRIVALENT, PF 4 2021 185 complet ed HISTORICA L INFORMATI ON - FROM OTHER REGISTRY, [place] [facility] ZOSTER RECOMBINANT 2 2021 187 complet ed HISTORICA L INFORMATI ON - FROM OTHER REGISTRY, [place] [facility] zoster recombinant 2021 ZULMA, () Not Given zoster recombina nt DoD ZOSTER RECOMBINANT 1 2021 187 complet ed HISTORICA L INFORMATI ON - FROM OTHER REGISTRY, [place] [facility] COVID-19 (PFIZER), MRNA, LNP-S, PF, 30 MCG/0.3 ML DOSE, NILESH-SUCROSE (AGES 12+ YEARS) 4 2021 217 complet ed HISTORICA L INFORMATI ON - FROM OTHER REGISTRY, [place] [facility] PNEUMOCOCCAL CONJUGATE PCV20, POLYSACCHARID E [id number] CONJUGATE, ADJUVANT, PF 1 2021 216 complet ed HISTORICA L INFORMATI ON - FROM OTHER REGISTRY, [place] [facility] INFLUENZA, RECOMBINANT, QUADRIVALENT, PF 3 2021 185 complet ed HISTORICA L INFORMATI ON - FROM OTHER REGISTRY, [place] [facility] COVID-19 (PFIZER), MRNA, LNP-S, PF, 30 MCG/0.3 ML DOSE 3 2020 208 complet ed HISTORICA L INFORMATI ON - FROM OTHER REGISTRY, [facility] INFLUENZA, RECOMBINANT, QUADRIVALENT, PF 2 2020 185 complet ed HISTORICA L INFORMATI ON - FROM OTHER REGISTRY, [facility] COVID-19 (MODERNA), MRNA, LNP-S, PF, 100 MCG/0.5ML DOSE OR 50 MCG/0.25ML DOSE 2 2020 207 complet ed HISTORICA L INFORMATI ON - FROM OTHER REGISTRY, [facility] COVID-19 (MODERNA), MRNA, LNP-S, PF, 100 MCG/0.5ML DOSE OR 50 MCG/0.25ML DOSE 1 2020 207 complet ed HISTORICA L INFORMATI ON - FROM OTHER REGISTRY, [facility] PNEUMOCOCCAL POLYSACCHARID E PPV23 1 2019 33 complet ed HISTORICA L INFORMATI ON - FROM OTHER REGISTRY, [facility] INFLUENZA, SPLIT VIRUS, QUADRIVALENT, PF 1 2019 150 complet ed HISTORICA L INFORMATI ON - FROM OTHER REGISTRY, [facility] INFLUENZA, MDCK, QUADRIVALENT, PRESERVATIVE 2 2018 186 complet ed HISTORICA L INFORMATI ON - FROM OTHER REGISTRY, [place] [facility] HEP A-HEP B 3 2018 104 complet ed HISTORICA L INFORMATI ON - FROM OTHER REGISTRY, [place] [facility] HEP A, ADULT 2 2018 52 complet ed HISTORICA L INFORMATI ON - FROM OTHER REGISTRY, [facility] HEP B, ADULT 3 2018 43 complet ed HISTORICA L INFORMATI ON - FROM OTHER REGISTRY, [facility] HEP B, ADULT 2 2018 43 complet ed HISTORICA L INFORMATI ON - FROM OTHER REGISTRY, [facility] HEP A-HEP B 1 2017 104 complet ed HISTORICA L INFORMATI ON - FROM OTHER REGISTRY, [place] [facility] HEP A, ADULT 1 2017 52 complet ed HISTORICA L INFORMATI ON - FROM OTHER REGISTRY, [facility] HEP B, ADULT 1 2017 43 complet ed HISTORICA L INFORMATI ON - FROM OTHER REGISTRY, [facility] INFLUENZA, SPLIT VIRUS, TRIVALENT, PF 1 2017 140 complet ed HISTORICA L INFORMATI ON - FROM OTHER REGISTRY, [place] [facility] DTAP 1 2017 20 complet ed HISTORICA L INFORMATI ON - FROM OTHER REGISTRY, [place] [facility] Results Combined list of recent [...] May 02, 2024 01:19 PM Reporting Lab: KAYLAAntoine [facility] [address] [facility] [address] Performing Lab: SIMONE [facility]LE[facility] [address] [place] [phone] [facility] LIPID PROFILE TRIGLYCERID E [MASS/VOLUM E] IN [...] 02, 2024 01:19 PM Reporting Lab: SIMONE [facility] [address] [facility] [address] Performing Lab: KEVIN[address] [address] [facility] LIPID PROFILE CHOLESTEROL IN HDL [MASS/VOLUM E] [...] May 02, 2024 01:19 PM Reporting Lab: [address] [address] Performing Lab: [address] [address] [facility] LIPID PROFILE CHOLESTEROL IN LDL [MASS/VOLUM E] [...] May 02, 2024 01:19 PM Reporting Lab: [address] [address] Performing Lab: [address] [address] [facility] GLYCOHEMO GLOBIN HEMOGLOBIN A1C/HEMOGLO BIN.TOTAL IN BLOOD BY HPLC 5.7 4.4 - 5.6 05/02 H Specimen Type: BLOOD Comment: [place] guidelines for A1c interpretat ion: Glycemic control targets are based on Shared Decision Making between clinicians and patients. Criteria used to establish an A1c target recommendat ion can be found at https://www .nd.gov/jazz lityandpati entsafety/ and include the use of [...] 9.27. Ref: https://ngs p.org/CAPda ta.asp. The in-house [employer] D-100 analyzer has a historical CV <= 2%. Contact the laboratory for further performance characteris tics of this assay. Ordering Provider: MARILUZ BARFIELD Report Released Date/Time: May 02, 2024 01:19 PM Reporting Lab: [address] [address] Performing Lab: [address] [phone] [place] [address] CBC/PLT LEUKOCYTES [#/VOLUME] IN BLOOD BY AUTOMATED COUNT 6.7 10*3/u L 5.0 - 10.0 05/02 Specimen Type: BLOOD No comment entered. Ordering Provider: MARILUZ BARFIELD Report Released Date/Time: May 02, 2024 01:19 PM Reporting Lab: [address] [address] Performing Lab: [place] [phone] [place] [address] CBC/PLT ERYTHROCYTE S [#/VOLUME] IN BLOOD BY AUTOMATED COUNT 5.62 10*6/u L 4.6 - 6.2 05/02 Specimen Type: BLOOD No comment entered. Ordering Provider: MARILUZ BARFIELD Report Released Date/Time: May 02, 2024 01:19 PM Reporting Lab: [address] [address] Performing Lab: [address] [phone] [place] [address] CBC/PLT HEMOGLOBIN [MASS/VOLUM E] IN BLOOD 16.2 g/dL 14.0 - 18.0 05/02 Specimen Type: BLOOD No comment entered. Ordering Provider: MARILUZ BARFIELD Report Released Date/Time: May 02, 2024 01:19 PM Reporting Lab: [address] [address] Performing Lab: [address] [address] [facility] CBC/PLT HEMATOCRIT [VOLUME FRACTION] OF BLOOD BY AUTOMATED COUNT 49.2 42.0 - 52.0 05/02 Specimen Type: BLOOD No comment entered. Ordering Provider: MARILUZ BARFIELD Report Released Date/Time: May 02, 2024 01:19 PM Reporting Lab: [address] [address] Performing Lab: [place] [phone] [place] [address] CBC/PLT MCV [ENTITIC VOLUME] BY AUTOMATED COUNT 87.5 fL 80.0 - 94.0 05/02 Specimen Type: BLOOD No comment entered. Ordering Provider: MARILUZ BARFIELD Report Released Date/Time: May 02, 2024 01:19 PM Reporting Lab: [place] [address] Performing Lab: [place] [phone] CBC/PLT MCH [ENTITIC MASS] BY AUTOMATED COUNT 28.8 pg 27.0 - 31.0 05/02 Specimen Type: BLOOD No comment entered. Ordering Provider: MARILUZ BARFIELD Report Released Date/Time: May 02, 2024 01:19 PM Reporting Lab: [place] [phone] Performing Lab: [place] [phone] [place] [address] CBC/PLT MCHC [MASS/VOLUM E] BY AUTOMATED COUNT 32.9 g/dL 32.0 - 36.0 05/02 Specimen Type: BLOOD No comment entered. Ordering Provider: MARILUZ BARFIELD Report Released Date/Time: May 02, 2024 01:19 PM Reporting Lab: [place] [address] Performing Lab: [place] [phone] [place] [address] CBC/PLT PLATELETS [#/VOLUME] IN BLOOD 209 10*3/u L 150 - 450 05/02 Specimen Type: BLOOD No comment entered. Ordering Provider: MARILUZ BARFIELD Report Released Date/Time: May 02, 2024 01:19 PM Reporting Lab: [place] [phone] Performing Lab: [place] [phone] [place] [address] CBC/PLT PLATELET MEAN VOLUME [ENTITIC VOLUME] IN BLOOD 11.8 fL 9.0 - 13.1 05/02 Specimen Type: BLOOD No comment entered. Ordering Provider: MARILUZ BARFIELD Report Released Date/Time: May 02, 2024 01:19 PM Reporting Lab: [place] [address] Performing Lab: [address] CBC/PLT ERYTHROCYTE DISTRIBUTIO N WIDTH [ENTITIC VOLUME] BY AUTOMATED COUNT 13.9 11.0 - 16.0 05/02 Specimen Type: BLOOD No comment entered. Ordering Provider: MARILUZ BARFIELD Report Released Date/Time: May 02, 2024 01:19 PM Reporting Lab: [place] [address] Performing Lab: [address] CBC/PLT NUCLEATED ERYTHROCYTE S/100 ERYTHROCYTE S IN BLOOD 0.0 0.0 - 0.0 05/02 Specimen Type: BLOOD No comment entered. Ordering Provider: MARILUZ BARFIELD Report Released Date/Time: May 02, 2024 01:19 PM Reporting Lab: [place] [address] Performing Lab: [address] PSA PROSTATE SPECIFIC AG [MASS/VOLUM E] IN [...] May 02, 2024 01:19 PM Reporting Lab: [place] [address] Performing Lab: [address] [place] [address] [facility] PANEL 2 PROTEIN [MASS/VOLUM E] IN SERUM [...] of sample is too elevated. Ordering Provider: BARFIELD,RENUK A S Report Released Date/Time: May 02, 2024 01:19 PM Reporting Lab: SIMONE VICTOR [facility] [address] [facility] [address] Performing Lab: SIMONE VICTOR [facility] [address] [facility] [address] [facility] PANEL 2 ALBUMIN [MASS/VOLUM E] IN SERUM [...] May 02, 2024 01:19 PM Reporting Lab: [facility] [address] [address] Performing Lab: JULIO CAntoine [address] [address] [facility] PANEL 2 BILIRUBIN.T OTAL [MASS/VOLUM E] IN [...] 01:19 PM Reporting Lab: SIMONE VICTOR [address] [address] Performing Lab: SIMONE VICTOR [address] [address] [facility] PANEL 2 ASPARTATE AMINOTRANSF ERASE [ENZYMATIC ACTIVITY/VO [...] 01:19 PM Reporting Lab: SIMONE VICTOR [address] [address] Performing Lab: SIMONE VICTOR [address] [address] [facility] PANEL 2 ALANINE AMINOTRANSF ERASE [ENZYMATIC ACTIVITY/VO [...] 01:19 PM Reporting Lab: SIMONE VICTOR [address] [address] Performing Lab: SIMONE VICTOR [address] [address] [facility] PANEL 2 ALKALINE PHOSPHATASE [ENZYMATIC ACTIVITY/VO LUME] [...] 01:19 PM Reporting Lab: SIMONE VICTOR [address] [address] Performing Lab: SIMONE VICTOR [address] [address] [facility] PANEL 2 BILIRUBIN.D IRECT [MASS/VOLUM E] IN [...] 01:19 PM Reporting Lab: SIMONE VICTOR [address] [address] Performing Lab: SIMONE VICTOR [address] [address] [facility] PANEL 1 CREATININE [MASS/VOLUM E] IN SERUM [...] 01:19 PM Reporting Lab: SIMONE VICTOR [address] [address] Performing Lab: SIMONE VICTOR [address] [address] [facility] PANEL 1 UREA NITROGEN [MASS/VOLUM E] IN [...] 2024 01:19 PM Reporting Lab: SIMONE VICTOR [facility] [address] [facility] [address] Performing Lab: SIMONE VICTOR [address] [address] [facility] PANEL 1 GLUCOSE [MASS/VOLUM E] IN SERUM [...] 2024 01:19 PM Reporting Lab: SIMONE VICTOR [place] [id number] [facility] [address] Performing Lab: JULIO CAntoine [address] [address] [facility] PANEL 1 SODIUM [MOLES/VOLU ME] IN SERUM [...] May 02, 2024 01:19 PM Reporting Lab: [address] [address] Performing Lab: [address] [address] [facility] PANEL 1 POTASSIUM [MOLES/VOLU ME] IN SERUM [...] 01:19 PM Reporting Lab: SIMONE VICTOR [address] [address] Performing Lab: SIMONE VICTOR [address] [address] [facility] PANEL 1 CHLORIDE [MOLES/VOLU ME] IN SERUM [...] 01:19 PM Reporting Lab: SIMONE VICTOR [address] [address] Performing Lab: JULIO CAntoine [address] [address] [facility] PANEL 1 CARBON DIOXIDE, TOTAL [MOLES/VOLU ME] [...] 01:19 PM Reporting Lab: SIMONE VICTOR [address] [address] Performing Lab: SIMONE VICTOR [address] [address] [facility] PANEL 1 CALCIUM [MASS/VOLUM E] IN SERUM [...] 01:19 PM Reporting Lab: SIMONE VICTOR [address] [address] Performing Lab: SIMONE VICTOR [address] [address] [facility] PANEL 1 ANION GAP 3 IN SERUM [...] 01:19 PM Reporting Lab: SIMONE VICTOR [address] [address] Performing Lab: SIMONE VICTOR [address] [address] [facility] PANEL 1 GLOMERULAR FILTRATION RATE/1.73 SQ M.PREDICTED [VOLUME [...] 01:19 PM Reporting Lab: SIMONE VICTOR [address] [address] Performing Lab: [address] [address] [facility] 25-OH VITAMIN D 25-HYDROXYV ITAMIN D3 [MASS/VOLUM [...] May 02, 2024 01:19 PM Reporting Lab: [address] [address] Performing Lab: [address] [address] [facility] B12 VITAMIN COBALAMIN (VITAMIN B12) [MASS/VOLUM E] [...] 01:19 PM Reporting Lab: SIMONE VICTOR [address] [address] Performing Lab: [address] [address] [facility] THYROID PROFILE THYROTROPIN [UNITS/VOLU ME] IN SERUM [...] 01:19 PM Reporting Lab: SIMONE VICTOR [address] [address] Performing Lab: JULIO CAntoine [address] [address] [facility] THYROID PROFILE FREE T4 0.91 ng/mL 0.70 [...] 01:19 PM Reporting Lab: SIMONE VICTOR [address] [address] Performing Lab: SIMONE [address] [address] [facility] DRUG SCREEN IN-HOUSE ROUTINE TETRAHYDROC ANNABINOL [PRESENCE] [...] May 02, 2024 01:37 PM Reporting Lab: [place] [phone] Performing Lab: [place] [phone] [place] [address] DRUG SCREEN IN-HOUSE ROUTINE AMPHETAMINE S [PRESENCE] [...] May 02, 2024 01:37 PM Reporting Lab: [place] [phone] Performing Lab: [place] [phone] [place] [address] DRUG SCREEN IN-HOUSE ROUTINE BARBITURATE S [PRESENCE] [...] May 02, 2024 01:37 PM Reporting Lab: [place] [phone] Performing Lab: [place] [phone] [place] [address] DRUG SCREEN IN-HOUSE ROUTINE BENZODIAZEP PAOLA [PRESENCE] [...] May 02, 2024 01:37 PM Reporting Lab: [address] [address] Performing Lab: [address] [phone] [place] [address] DRUG SCREEN IN-HOUSE ROUTINE BENZOYLECGO NINE [PRESENCE] [...] May 02, 2024 01:37 PM Reporting Lab: [address] [address] Performing Lab: [address] [phone] [place] [address] DRUG SCREEN IN-HOUSE ROUTINE OPIATES [PRESENCE] IN [...] May 02, 2024 01:37 PM Reporting Lab: [address] [address] Performing Lab: [address] [address] [facility] DRUG SCREEN IN-HOUSE ROUTINE METHADONE [PRESENCE] IN [...] May 02, 2024 01:37 PM Reporting Lab: [address] [address] Performing Lab: [place] [phone] [place] [address] DRUG SCREEN IN-HOUSE ROUTINE OXYCODONE [PRESENCE] IN [...] May 02, 2024 01:37 PM Reporting Lab: [address] [address] Performing Lab: [address] [phone] [facility] Vital Signs Combined list of inpatient and outpatient Vital Signs from [employer] and [employer], ranging from 12 months to all on record, depending upon the facility. Vital Sign Value Date Comments Source WEIGHT 288.8 06/02/2024 09:01:09 [facility] BMI 42 kg/m2 06/02/2024 09:01:09 [facility] SYSTOLIC BLOOD PRESSURE 116 05/02/2024 12:52:08 [facility] DIASTOLIC BLOOD PRESSURE 74 05/02/2024 12:52:08 [facility] PULSE OXIMETRY 97 05/02/2024 12:52:08 L [facility] WEIGHT 294 05/02/2024 12:52:08 LOIDA HOBSON [facility] BMI 43 kg/m2 05/02/2024 12:52:08 LEXIN JAZLYN [facility] PAIN 4 05/02/2024 12:52:08 LEXIN JAZLYN [facility] HEIGHT 69.5 05/02/2024 12:52:08 LOIDA HOBSON [facility] TEMPERATURE 96.9 05/02/2024 12:52:08 [facility]AYTON SCHUSTER [facility] PULSE 89 05/02/2024 12:52:08 [facility] RESPIRATION 16 05/02/2024 12:52:08 [facility]TON [facility]USTER [facility] Encounters Combined list of: 1) Encounters from Department of [facility] facilities going backup to the last 18 months, not all [place] inpatient encounters are included; 2) Encounters from the Department of [facility] facilities going backup to 280 months. Location Location Details Encounter Type Encounter Number Reason For Visit Attending Provider ADM Date DC Date Status Disposition Source [facility] Outpatient Encounter [id number] 05/02 [place] [facility] Outpatient Encounter [id number] 02/05 [place] [facility] Outpatient Encounter [id number] 02/21 [place] [facility] Outpatient Encounter [id number] 03/25 [place] [facility] BRIEF COMUNICAJ TECH-BSD [facility] [id number] Diagnos is: ICD-10- CM Z77.29 Contact with and exposur e to other hazardo us substan harlan BOOM TORRES Kalia 04/07 [place] Outpatient Encounter [id number] 04/15 [place] [facility] Outpatient Encounter [id number] 05/02 [place] [facility] OFFICE O/P NEW MOD 45 MIN [id number] Diagnos is: ICD-10- CM I10 Essenti al (primar y) hyperte nsion BARFIELD,MANE KA S 05/02 [place] [facility] Outpatient Encounter [id number] 05/02 [place] HLTH BHV ASSMT/REAS SESSMENT [id number] Diagnos is: ICD-10- CM Z65.8 Oth problem s related to psychos ocial circums TIMOTEO Lynne RIL R 05/02 [place] [facility] Outpatient Encounter [id number] 05/02 [place] Outpatient Encounter [id number] 05/07 [place] Outpatient Encounter [id number] 05/16 [place] [facility] Outpatient Encounter [id number] 05/19 [place] COMPRE OPH EXAM NEW PT 1/> [id number] Diagnos is: ICD-10- CM H43.813 Vitreou s aaroner keyon guzman PHI LLIP K 05/26 [place] [facility] Outpatient Encounter [id number] 06/16 [place] Outpatient Encounter [id number] 06/23 [place] [facility] Outpatient Encounter [id number] 06/24 [place] [facility] Outpatient Encounter [id number] 07/07 [place] [facility] NUTRI PLANT AND EQUIPMENT WORKER-CO NTROL CARIES [id number] Diagnos is: ICD-10- CM Z01.20 Encount er for dental exam and cleanin g w/o abnorma l юлия s Celia LARSEN 07/25 [place] [facility] Outpatient Encounter [id number] 07/25 [place] ADJUNCTIVE PROCEDURE [id number] Diagnos is: ICD-10- CM R68.2 Dry mouth, unspeci fied JULIÁN GABRIEL L 08/05 [place] [facility] Outpatient Encounter [id number] 08/31 [place] [facility] ORAL HYGIENE INSTRUCTIO N [id number] Diagnos is: ICD-10- CM M26.56 Non-wor thomas side interfe rence JULIÁN GABRIEL L 09/08 [place] [facility] RESIN ONE SURFACE-AN TERIOR [id number] Diagnos is: ICD-10- CM K02.52 Dental caries on pit and fissure surfc penetra t into dentin JULIÁN GABRIEL L 10/02 [place] [facility] Social History Combined list of available smoking, tobacco, and other social history from Department of Defense and Veterans Affairs facilities. Social History Type Response Date Comment Sourc e Tobacco smoking status NHIS VA-TOBACCO USE FORMER CIGARETTES 05/02/2024 [facility] History of tobacco use VA-TOBACCO NEVER USED OTHER TYPE 05/02/2024 [facility] This section is an empty social history section. [facility] Plan of Care List of future care activities from Department of Veterans Affairs facilities. Additional future care activities may be listed in the Assessment and Plan section. Date/Time Care Activity Care Activity Detail Facili ty 03/10/2025 AMBULATORY - NONE AMBULATORY - NONE [facility]
--- OUTSIDE RECORDS SUMMARY | 2024-10-15 14:10 | XMS_ITS | Clinical Summary ---
Author Organization [facility] Address [address] [place] [address] Care Team Providers Care Research Animal Facility Supervisor Name Role Phone Zofia Mcleod APRN Primary Care Provider [phone] Allergies No known active allergies Medications ASPIRIN 81 MG chewable tablet Chew 1 tablet 1 time each day. 9 Active diclofenac (Voltaren) 1 % topical gel Apply topically. 9 Active Cyanocobalamin 1000 MCG capsule Take 1 tablet by mouth daily. 5 Active Glucosamine Sulfate (SM Glucosamine Sulfate) 1000 MG tablet Take by mouth. 5 Active Multiple Vitamin (MULTIVITAMINS PO) Take by mouth. 5 Active finasteride (Proscar) 5 MG tablet Take 1 tablet by mouth. 5 Active tamsulosin (Flomax) 0.4 MG 24 hr capsule take 2 capsules (0.8 mg) by oral route once daily 1/2 hour following the same meal each day 9 Active pantoprazole (Protonix) 40 MG EC tablet Take 1 tablet by mouth daily. 4 Active sucralfate (Carafate) 1 g tablet Take 1 tablet by mouth. 5 Active pregabalin (Lyrica) 75 MG capsule Take 1 capsule by mouth. 5 Active Linzess 72 MCG capsule capsule 5 Active metoprolol succinate XL (Toprol-XL) 50 MG 24 hr tablet Take 1 tablet by mouth daily. 9 Active Savella 50 MG tablet Take 1 tablet by oral route 2 times per day 5 Active pravastatin (Pravachol) 40 MG tablet Take 1 tablet by mouth daily. 5 Active predniSONE 10 MG (21) tablet therapy pack follow package directions 5 Active pantoprazole (Protonix) 40 MG EC tablet Take 1 tablet by mouth. 5 Active Active Problems No known active problems Encounters Date Type Department Care Team Description 10/02/2024 Orders Only [facility] Orthopaedic Surgery & Sports Medicine [address], [address] [place] [address] [address] [place] [address] Mily Malik DPM Peroneal tendonitis, right (Primary Dx); Chronic pain of right ankle 10/02/2024 Telephone [facility] Orthopaedic [address], [address] [place] [address] [address] Mily Malik DPM HCN - Patient Message 09/25/2024 10:50 AM EDT Office Visit [facility] Orthopaedic Surgery & Sports [place] [address], [address] [place] [address] [address] Mily Malik DPM Peroneal tendonitis, right (Primary Dx); Difficulty walking; Chronic pain of right ankle; Foot pain, right 09/25/2024 Travel 09/24/2024 Orders Only [facility] Orthopaedic Surgery & Sports Medicine [address], [address] [place] [address] [address] [place] [address] Mily Malik DPM Right foot pain (Primary Dx) from Last 3 Months Immunizations Immunization Administration Dates Next Due Hep [...] Mass Index 42.09 09/25/2024 10:42 AM EDT Plan of Treatment Upcoming Encounters Date Type Department Care Team (Late st Contact Info) Description 11/13/2024 8:00 AM EDT Appointment [facility] MRI [address] [place] [address] 11/17/2024 11:20 AM EDT Office Visit [facility] Orthopaedic Surgery & Sports Medicine [address], [address] [place] [address] Mily Malik S, DPM [address] [place] [address] Health Maintenance Due Date Last Done Comments [facility]-Depression Screening 1959 [facility]-Hepatitis C Screening 1959 [facility]-Infant/Child/Adol SDOH Screenings 1959 [facility]- SDOH Screenings 06/09/1977 [facility]-Adult SDOH Screenings 06/09/1977 CT Colonography 06/09/2004 [facility]-DNA 06/09/2004 FIT 06/09/2004 FOBT 06/09/2004 Sigmoidoscopy 06/09/2004 [facility]-Abdominal Aortic Aneurysm (AAA) Screening 06/09/2024 [facility]-Medicare Annual Wellness (AWV) 06/27/2024 06/28/2023, 05/18/2022, 05/03/2021 [id number]-51 Vaccine (8 - Mixed Product risk season) 2024 02/22/2024, 03/12/2023, 01/19/2022, Additional history exists [facility]-Influenza Vaccine (#1) 11/24/202402/05, 03/12/2023, 01/19/2022, Additional history exists [facility]-DTaP,Tdap,and Td Vaccines (3 - Td or Tdap) 01/26/2032 01/25/2022, 04/08/2017 Colonoscopy 10/03/2033 10/04/2023, 02/05/2019 [facility]-Colorectal Cancer Screening 10/03/2033 [facility]-Hepatitis A Vaccines Aged Out 09/02/2018, 02/23 No longer eligible based on patient's age to complete this topic [facility]-Pneumococcal Vaccine: 50+ Years Completed 08/30/2021 [facility]-Zoster Vaccines Completed 12/13/2021, [facility]-RSV Vaccine: 60+ Years or Completed 02/22/2024, 03/12/2023 [facility]-Obesity Intervention Completed 09/25/2024 HPV Vaccines Aged Out No longer eligi [...] Recently Relevant to Health Maintenance Insurance MEDICARE [facility] Care Teams Research Animal Facility Supervisor Relationship Specialty Start Date End Date Zofia Mcleod APRN [address] [place] [address] [place] [address] PCP - General 08/06/20
--- OUTSIDE RECORDS SUMMARY | 2024-10-15 14:10 | XMS_ITS | Encounter Summary ---
Author Organization [facility] Address [address] [place] [address] Care Team Providers Care Flame Burner Name Role Phone Zofia Mcleod APRN Primary Care Provider [phone] Reason for Visit * Reason Onset Date Comments HCN - Patient Message 10/02/2024 Encounter Details Date Type Department Care Team (Late st Contact Info) Description 10/02/2024 Telephone [facility] Orthopaedic Surgery & Sports Medicine [address], [address] [place] [address] Mily Malik, DPM [address] [place] [address] HCN - Patient Message Social History Tobacco Use Types Packs/Day Years [...] on file documented as of this encounter Miscellaneous Notes * Telephone Encounter - Kiya Francis - 10/02/2024 3:42 PM EDT Called patient and told her I placed the order for MRI so she could call in a few days to get it scheduled that she might want to wait until at least Sunday to give them time to get it authorized by insurance. * Telephone Encounter - Erika Kingston - 10/02/2024 3:07 PM EDT Clinical Concern/Question Reason for Call: Dr. Malik pt. Pt's spouse, Iwona, stated he was told he would have an order for a MRI. There is not an order for an MRI in the system. She is requesting a call back from the clinic. Best contact number: Other: [phone] Optimal time of day to reach caller: ANYTIME Additional comments/information from caller: None Note: Please do not reply to this message. Follow-up communication and further actions as a result of this message need to be communicated with the patient directly, if the patient is not active onMyChart. If the patient is active on MyChart, they will receive notification of the communication/outcome via Mipagar. documented in this encounter Plan of Treatment Upcoming Encounters Date Type Department Care Team (Late st Contact Info) Description 11/13/2024 8:00 AM EDT Appointment [facility] MRI [address] [place] [address] 11/17/2024 11:20 AM EDT Office Visit [facility] Orthopaedic Surgery & Sports Medicine [address], [address] [place] [address] Mily Malik, DPThompson [address] [place] [address] documented as of this encounter Visit Diagnoses Not on filedocumented in this encounter Additional Health Concerns Assessment Noted Time A fall risk assessment has been complete d for the patient 09/25/2024 10:36 AM EDT A Body Mass Index follow-up plan has been documented for the patient 09/25/2024 11:57 AM EDT documented as of this encounter Care Teams Flame Burner Relationship Specialty Start Date End Date Zofia Mcleod APRN [address] [place] [address] PCP - General 08/06/20 documented as of this encounter
--- OUTSIDE RECORDS SUMMARY | 2024-10-15 14:10 | XMS_ITS | Clinical Summary ---
Author Organization [employer] [facility] Address [address] [place] [phone] Phone Care Team Providers Care Reflow Operator Name Role Phone Gavin Chamorro MD Primary Care Physician [phone] Conditions or Problems Problem Name Problem Code [...] Z71.3 (ICD-10-CM ) Inactive 09/14 Beckie Lainhart STOCK PREPARATION OPERATOR Dietary counseling and surveillance Counseling for nutrition Z71.3 (ICD-10-CM ) Inactive 08/31 Beckie Lainhart STOCK PREPARATION OPERATOR Dietary counseling and surveillance Counseling for nutrition Z71.3 (ICD-10-CM ) Inactive 08/18 Beckie Lainhart STOCK PREPARATION OPERATOR Dietary counseling and surveillance Counseling for nutrition Z71.3 (ICD-10-CM ) Inactive 08/03 Beckie Lainhart STOCK PREPARATION OPERATOR Dietary counseling and surveillance Counseling for nutrition Z71.3 (ICD-10-CM ) Inactive 07/20 Beckie Lainhart STOCK PREPARATION OPERATOR Dietary counseling and surveillance Counseling for nutrition Z71.3 (ICD-10-CM ) Inactive 06/30 Beckie Lainhart STOCK PREPARATION OPERATOR Dietary counseling and surveillance Counseling for nutrition Z71.3 (ICD-10-CM ) Inactive 06/30 Beckie Lainhart STOCK PREPARATION OPERATOR Dietary counseling and surveillance Counseling for [...] Z71.3 (ICD-10-CM ) Inactive 06/[address] [facility] Dietary counseling and surveillance Body mass index (BMI) 34.0-34.9; adult Z68.34 (ICD-10-CM ) Removed 06/04 Gavin Chamorro MD Body mass index [BMI] 34.0-34.9, adult Depression [id number] (SNOMED CT) Active 05/25 Gavin Chamorro MD Depressive disorder Medications Medication Instructions Start Date Stop Date Generic Name NDC Provider ZOLOFT 50 MG TABS Take 1 tablet by mouth once a day 9 sertraline [id number] Gavin Chamorro MD ZOLOFT 50 MG TABS Take 1 tablet by mouth once a day 9 sertraline 33731338347 Gavin Chamorro MD ZOLOFT 50 MG TABS Take 1 tablet by mouth once a day 9 sertraline 88854268653 Gavin Chamorro MD ZOLOFT 50 MG TABS Take 1 tablet by mouth once a day 9 sertraline 47078729800 Gavin Chamorro MD ZOLOFT 50 MG TABS Take 1 tablet by mouth once a day 9 sertraline 25410149283 Gavin Chamorro MD ZOLOFT 50 MG TABS Take 1 tablet by mouth once a day 9 sertraline 92534048043 Gavin Chamorro MD ZOLOFT 50 MG TABS Take 1 tablet by mouth once a day ( START HALF TABLET DAILY FOR 1 WEEK, THEN TAKE ONE TABLET DAILY ) 2 sertraline 38586800945 Gavin Chamorro MD ZOLOFT 50 MG TABS Take 1 tablet by mouth once a day 1 sertraline 52689111109 Gavin Chamorro MD ZOLOFT 50 MG TABS Take 1 tablet by mouth once a day ( START HALF TABLET DAILY FOR 1 WEEK, THEN TAKE ONE TABLET DAILY ) 2 sertraline 31383622414 Gavin Chamorro MD Medications Administered No information available. Allergies, Adverse Reactions, Alerts Observed no known allergies at Results No information available. Plan of Care No information available. Procedures Code Procedure Name Date Entry Date [facility]-[id number] Medication Reconciliation CPT-3074F Most recent systolic blood pressure <130 mm Hg SCT-[id number] Medication Reconciliation CPT-3074F Most recent systolic blood pressure <130 mm Hg CPT-3079F Most recent diastoli c blood pressure 80-89 mm Hg [facility]-[id number] Medication Reconciliation CPT-3074F Most recent systolic blood pressure <130 mm Hg CPT-3079F Most recent diastoli c blood pressure 80-89 mm Hg CPT-3077F Most recent systolic blood pressure >=140 mm Hg CPT-3079F Most recent diastoli c blood pressure 80-89 mm Hg CPT-3074F Most recent systolic blood pressure <130 mm Hg CPT-3079F Most recent diastoli c blood pressure 80-89 mm Hg CPT-59183() Psychotherapy 45m -No [facility]() 14/10/25 CPT-13518() Psychotherapy 45m -No [facility]() 14/10/04 [facility]-[id number] Medication Reconciliation CPT-3074F Most recent systolic blood pressure <130 mm Hg CPT-3078F Most recent diastoli c blood pressure <80 mm Hg CPT-91865() Psychotherapy 45m -No [facility]() 20 14/09/20 CPT-77485() Psychotherapy 45m -No [facility]() 20 14/09/06 CPT-26500() Psychotherapy 45m -No [facility]() 20 14/08/24 CPT-74857() Psychotherapy 45m -No [facility]() 14/08/09 CPT-86076() Psychotherapy 60m Crises -[facility]() CPT-03845() Psychotherapy 45m -No [facility]() 15/07/05 CPT-1159F Medication list docu mented in medical record [facility]-[id number] Medication Reconciliation CPT-3074F Most recent systolic blood pressure <130 mm Hg CPT-3078F Most recent diastoli c blood pressure <80 mm Hg CPT-47918() Psychotherapy 60m Crises -[facility]() [facility]-[id number] Medication Reconciliation CPT-3074F Most recent systolic blood [...]
--- OUTSIDE RECORDS SUMMARY | 2024-10-15 14:10 | XMS_ITS | Encounter Summary ---
Author Organization [facility] Address [address] [place] [address] Care Team Providers Care Ferryboat Deckhand Name Role Phone Juancho Mcleody Antoine MOLINA Primary Care Provider [phone] Encounter Details Date Type Department Care Team (Late st Contact Info) Description 07/03/2024 Orders Only External Location [address] [place] [phone] Provider, External Social History Tobacco Use Types Packs/Day Years [...] on file documented as of this encounter Plan of Treatment Upcoming Encounters Date Type Department Care Team (Late Contact Info) Description 11/13/2024 8:00 AM EDT Appointment [facility] MRI [address] [place] [address] 11/17/2024 11:20 AM EDT Office Visit [facility] Orthopaedic Surgery & Sports Medicine [address], [address] [place] [address] Mily Malik, DPM [address] [place] [address] documented as of this encounter Procedures Procedure Name Priority Date/Time Associated Diagnosis Comments XR OUTSIDE IMAGES 07/03/2024 10:49 AM EDT documented in this encounter Results * XR OUTSIDE IMAGES (07/03/2024 10:49 AM EDT) Anatomical Region Laterality Modality Radiographic Alea ging 07/03/2024 10:4 9 AM EDT us External Provider IMG XR PROCEDURES Final Result documented in this encounter Visit Diagnoses Not on filedocumented in this encounter Care Teams Ferryboat Deckhand Relationship Specialty Start Date End Date Zofia Mcleod, KENNEL TECHNICIAN [address] [place] [address] PCP - General 08/06/20 documented as of this encounter
--- OUTSIDE RECORDS SUMMARY | 2024-10-15 14:10 | XMS_ITS | Encounter Summary ---
Author Organization [facility] Address [address] [place] [address] Care Team Providers Care Ornamental Metal Fabricator Apprentice Name Role Phone Shani Zofia Antoine MOLINA Primary Care Provider [phone] Encounter Details Date Type Department Care Team (Late st Contact Info) Description 09/24/2024 Orders Only [facility] Orthopaedic Surgery & Sports Medicine [address], [address] [place] [address] Mily Malik, DPM [address] [place] [address] Right foot pain (Primary Dx) Social History Tobacco Use Types Packs/Day Years [...] Info) Description 11/13/2024 8:00 AM EDT Appointment [facility] MRI [address] [place] [id number] 11/17/2024 11:20 AM EDT Office Visit [facility] Orthopaedic Surgery & Sports Medicine [address], [address] [place] [address] Mily Malik, DPM [address] [place] [address] Scheduled Orders Name Type Priority Associated Diagnoses Orde r Schedule XR Foot Right 3+ Views Imaging Routine Right foot pain 1 Occurrences starting 09/24/2024 until 03/28/2026 documented as of this encounter Visit Diagnoses Diagnosis Right foot pain- Primary Pain in soft tissues of limb documented in this encounter Care Teams Ornamental Metal Fabricator Apprentice Relationship Specialty Start Date End Date Zofia Mcleod, REHABILITATION TEACHER [address] [place] [address] PCP - General 08/06/20 documented as of this encounter
--- OUTSIDE RECORDS SUMMARY | 2024-10-15 14:10 | XMS_ITS | Encounter Summary ---
Author Organization [facility] Address [address] [place] [address] Care Team Providers Care Inspector Hot Forgings Name Role Phone Zofia Mcleod APRN Primary Care Provider [phone] Encounter Details Date Type Department Care Team (Latest Contact Info) Description 09/25/2024 Travel Social History Tobacco Use Types Packs/Day Years [...] Info) Description 11/13/2024 8:00 AM EDT Appointment [facility] [address] [facility] [place] [address] 11/17/2024 11:20 AM EDT Office Visit [facility] Orthopaedic Surgery & Sports Medicine [address], [address] [place] [address] Mily Malik, DPM [address] [place] [address] documented as of this encounter Visit Diagnoses Not on filedocumented in this encounter Additional Health Concerns Assessment Noted Time A fall risk assessment has been complete d for the patient 09/25/2024 10:36 AM EDT A Body Mass Index follow-up plan has been documented for the patient 09/25/2024 11:57 AM EDT documented as of this encounter Care Teams Inspector Hot Forgings Relationship Specialty Start Date End Date Zofia Mcleod APRN [address] [place] [address] PCP - General 08/06/20 documented as of this encounter
--- OUTSIDE RECORDS SUMMARY | 2024-10-15 14:10 | XMS_ITS | Encounter Summary ---
Author Organization [facility] Address [address] [place] [address] Care Team Providers Care Bellows Charger Assembler Name Role Phone Zofia Mcleod APRN Primary Care Provider [phone] Reason for Referral * Imaging (Routine) - Pending Review Specialty Diagnoses / Procedures Referred By Phyllis sosa Referred To Contact Radiology Diagnoses Peroneal tendonitis, right Chronic pain of right ankle Procedures MR Ankle Right wo IV Contrast Mily Malik DPM [address] [place] [address] Phone: tel: fax: Referral ID Status Reason Start Date Expiration Date V isits Requested Visits Authorized [id number] Pending Review 10/02/2024 04/03/2026 1 1 Encounter Details Date Type Department Care Team (Late st Contact Info) Description 10/02/2024 Orders Only [facility] Orth[facility] Surgery [facility] Sports Medicine [address] [place] [address] Mily Malik DPM [address] [place] [address] Peroneal tendonitis, right (Primary Dx); Chronic pain of right ankle Social History Tobacco Use Types Packs/Day Years [...] Info) Description 11/13/2024 8:00 AM EDT Appointment [facility] [address] [place] [address] 11/17/2024 11:20 AM EDT Office Visit [facility] [address] [place] [address] Mily Malik, DPM [address] [place] [address] Scheduled Orders Name Type Priority Associated Diagnoses Orde r Schedule MR Ankle Right wo IV Contrast Imaging Routine Peroneal tendonitis, right Chronic pain of right ankle 1 Occurrences starting 10/02/2024 until 04/05/2026 documented as of this encounter Visit Diagnoses Diagnosis Peroneal tendonitis, right- Primary Chronic pain of right ankle documented in this encounter Additional Health Concerns Assessment Noted Time A fall risk assessment has been complete d for the patient 09/25/2024 10:36 AM EDT A Body Mass Index follow-up plan has been documented for the patient 09/25/2024 11:57 AM EDT documented as of this encounter Care Teams Bellows Charger Assembler Relationship Specialty Start Date End Date Zofia Mcleod APRN [address] [place], [place] [id number] PCP - General 08/06/20 documented as of this encounter
--- OUTSIDE RECORDS SUMMARY | 2024-10-15 14:10 | XMS_ITS | Clinical Summary ---
Author Organization [facility] Address [address] [place] [address] Phone Care Team Providers Care Carbon Brushes Assembler Name Role Phone Bogdan Sam MD Primary [...] migh t be different from the original. [facility] - Damien Jones MD Interventional Pain Protocol: Katiuska report completed (EVERY 3 MONTHS) ( 10/15/23 ) [facility] Center additional info (Transportation, WC, Compound, No Show, PPW) Pharmacy: [facility] [id number] [place] [address] [address] [facility] [phone] Spine Center additional info (Transportation, WC, Compound, [...] seen for regular eye care outside of [facility]. Morbid obesity 10/31/2022 Assessment & Plan [...] Savella and gabapentin Katiuska reviewed from [facility] and is as expected. Assessment & Plan (10/31/2022 2:13 PM EDT): Doing well on Savella and Gabapentin Reviewed Katiuska in Epic and as expected. Wanted confirmatory letter for [place] Marijuana card. Assessment & Plan (05/18/2022 10:49 AM EST): Doing well KATIUSKA as expected [id number] Assessment & Plan (11/10/2021 6:37 AM EDT): Stable on savella + gabapentin Encouraged aerobic exercise katiuska as expected Assessment & Plan (09/21/2021 3:14 PM EDT): Well controlled on current meds KATIUSKA as expected: [id number] RTC 3 months and prn Assessment & Plan (06/15/2021 2:23 PM EDT): Well controlled on gabapentin and Savella KATIUSKA as expected, has not recently filled in [place]: [id number] Assessment & Plan (05/03/2021 9:22 AM EST): [...] 10/31/2022 11/06/2022 Overview (10/31/2022): Initially dx at [facility] and then later confirmed at No [...] SAC 08/18/2021 Damien Jones MD [facility] IMAGING CHOLECYSTECTOMY FIXATION KYPHOPLASTY 04/12/2022 Spine/N/A Kyphoplasty of L1 and T12; Surgeon: Willian Navarro MD; Location: [facility] MAIN OR; Service: Spine Medical devices from [...] Additional history exists Wellness Exam Medicare 06/28/2024 4, 05/18/2022, 05/03/2021 Influenza Vaccine (#1) 2024 3, 03/12/2023, 01/19/2022, Additional history exists Colon Cancer [...] [employer], [employer] Implanted Type Area Social Work Coordinator Device Identifier Shelf Expiration Date Model / Serial / Lot Knee Left: Knee Kt Bone Cemnt Xpede - [id number] Implanted:Qty: 1 on 04/12/2022 by Willian Navarro MD at [facility] N/A: Back [employer] 09/22/2024 CX01B / / [id number] Kt Bone Cemnt Xpede - [id number] Implanted:Qty: 1 on 04/12/2022 by Willian Navarro MD at [facility] N/A: Back [employer] 09/22/2024 CX01B / / [id number] Procedures Procedure Name Priority Date/Time Associated Diagnosis [...] Post-Procedure Diagnosis Melena Staff Staff Role Ana uCellar RN Nurse Bong Srivastava III, MD Performing [...] Non-Reacti ve 05/03/2021 3:34 PM EST PREFERRED [employer] Blood VENOUS BLOOD / Unknown Venipuncture / Unknown 05/03/2021 9:57 AM EST 05/03/2021 9:57 AM EST us Bogdan Sam MD HEMATOLOGY ORDERABLES Final Result PREFERRED [facility] [address] [facility] , [place] [address] from Last 3 Months or Most Recently Relevant to Health Maintenance Insurance [place] Member Subscriber Plan / Payer (Ef fective 2021-Present) Name:Gt Grimes Relation to Subscriber:Self Name:Gt Grimes Payer ID:Not on file Group ID:Not on file Type:Not on file Address: [place] [id number] [place] [address] [address] [place] [address] [place]ICARE [place] PART A AND B FOR LIFE Care Teams Carbon Brushes Assembler Relationship Specialty Start Date End Date Bogdan Sam MD [address] [place] [address] PCP - General Family Medicine 05/03/21
--- OUTSIDE RECORDS SUMMARY | 2024-10-15 14:10 | XMS_ITS | Data Portability ---
Author Organization [employer] - [facility] Address [address] [place] [address] Assessment Encounter Date Assessment Date Assessment LastModified [...] recorded. Lab lipid panel, serum 2024 025 [place] ([facility], [address] [place] [address], [place], [address], 05:06:59 CMP, serum or plasma 2024 025 [facility]), [address] [place], [address], 5 05:06:59 CBC w/ auto diff 2024 025 [facility] [address] [place], [address], 5 05:06:58 lipid panel, serum 2023 024 [facility] [address] [place], [address], 4 08:11:52 CMP, serum or plasma 2023 024 [facility] [address] [place], [address], 4 08:11:52 CBC w/ auto diff 2023 024 [facility] [address] [place], [address], 4 08:11:51 PSA, total, serum or plasma 2023 024 [facility] [address] [place], [address], 4 08:11:53 Hepatitis C IgG Ab, qual, serum 2023 024 [facility]), [address] [place], [address], 4 08:11:52 HIV 1 + 2, meaningful use set 2023 024 [facility] [address] [place], [address], 4 08:11:53 Referral physical therapist referral - First available - requests his same PT from his shoulder 2024 025 [facility], [address], [place], [address], 09:35:49 Procedures None recorded. Surgeries None recorded. Imaging XR, foot, 3 or more view 2024 [email or web address], [place], [address], 5 11:01:17 Medication Orders Linzess 72 mcg capsule 2024 025 [email or web address], [address] [place] [address], [address], 5 17:02:33 Savella 50 mg tablet 2024 025 [facility], [address] [place] [address], [address], 5 13:29:15 prednisone 10 mg tablets in a dose pack 2024 025 [place] [id number] [address], [place], [place], [id number], 5 13:20:31 Carafate 100 mg/mL oral suspension 2023 024 [id number], [address] [place], [place], [id number], 10:52:33 Patient TargetsNo targets recorded. Patient Instructions Encounter Date Encounter Id Patient Instructions Last Modified By Organization Details Last Modified Time 02/06/2024 [id number] influenza (flu) vaccine: care instructions Not available 02/06/2024 16:27:26 02/27/2024 [id number] body mass index: care instructions Not available [...] Abnormal Flag Note LastModifiedBy Organization Detail LastModifiedTime 01/16/2001/16/2024 fecal occul t blood X 2, stool occult blood negati ve normal Not Available [facility] [address], [place], [address], 01/16/2024 16:02:41 02/29/20 24 03/01/2024 CBC WITH DIFFE RENTI AL/PL ATELE T WBC 8.0 x10e3 /uL 3.4-10 .8 normal Not Available [facility] ([facility]) [address] [place], [address], 03/01/2024 08:11:51 02/29/20 24 03/01/2024 CBC WITH DIFFE RENTI AL/PL ATELE T RBC 6.11 x10e6 /uL 4.14-5 .80 above high normal Not Available [facility] ([facility]) [address] [place], [address], 03/01/2024 08:11:51 02/29/20 24 03/01/2024 CBC WITH DIFFE RENTI AL/PL ATELE T hemoglobin 17.7 g/dL 13.0-1 7.7 normal Not Available [facility] ([facility]) [address] [place], [address], 03/01/2024 08:11:51 02/29/20 24 03/01/2024 CBC WITH DIFFE RENTI AL/PL ATELE T hematocrit 53.9 % 37.5-5 1.0 above high normal Not Available [facility] ([facility]) [address] [place], [address], 03/01/2024 08:11:51 02/29/20 24 03/01/2024 CBC WITH DIFFE RENTI AL/PL ATELE T MCV 88 fL 79-97 normal Not Available [facility] ([facility]) [address] [place], [address], 03/01/2024 08:11:51 02/29/20 24 03/01/2024 CBC WITH DIFFE RENTI AL/PL ATELE T MCH 29.0 pg 26.6-3 3.0 normal Not Available [facility] ([facility]) [address] [facility], [place], [address], 03/01/2024 08:11:51 02/29/20 24 03/01/2024 CBC WITH DIFFE RENTI AL/PL ATELE T MCHC 32.8 g/dL 31.5-3 5.7 normal Not Available [facility] ([facility]) [address] [place], [address], 03/01/2024 08:11:51 02/29/20 24 03/01/2024 CBC WITH DIFFE RENTI AL/PL ATELE T RDW 12.8 % 11.6-1 5.4 Not Available [facility] ([facility]) [address] [place], [address], 03/01/2024 08:11:51 02/29/20 24 03/01/2024 CBC WITH DIFFE RENTI AL/PL ATELE T platelets 249 x10e3 /uL 150-45 0 normal Not Available [facility] ([facility]) [address] [place], [address], 03/01/2024 08:11:51 02/29/20 24 03/01/2024 CBC WITH DIFFE RENTI AL/PL ATELE T neutrophils 54 % not estab. normal Not Available [facility] ([facility]) [address] [facility], [place], [address], 03/01/2024 08:11:51 02/29/20 24 03/01/2024 CBC WITH DIFFE RENTI AL/PL ATELE T lymphs 35 % not estab. normal Not Available [facility] ([facility]) [address] [facility], [place], [address], 03/01/2024 08:11:51 02/29/20 24 03/01/2024 CBC WITH DIFFE RENTI AL/PL ATELE T monocytes 8 % not estab. normal Not Available [facility] ([facility]) [address] [facility], [place], [address], 03/01/2024 08:11:51 02/29/20 24 03/01/2024 CBC WITH DIFFE RENTI AL/PL ATELE T eos 2 % not estab. normal Not Available [facility] ([facility]) [address] [facility], [place], [address], 03/01/2024 08:11:51 02/29/20 24 03/01/2024 CBC WITH DIFFE RENTI AL/PL ATELE T basos 1 % not estab. normal Not Available [facility] ([facility]) [address] [facility], [place], [address], 03/01/2024 08:11:51 02/29/20 24 03/01/2024 CBC WITH DIFFE RENTI AL/PL ATELE T immature cells LIQUOR ESTABLISHMENT MANAGER Not Available [facility] ([facility]) [address] [place], [address], 03/01/2024 08:11:51 02/29/20 24 03/01/2024 CBC WITH DIFFE RENTI AL/PL ATELE T neutrophils (absolute) 4.3 x10e3 /uL 1.4-7. 0 normal Not Available [facility] ([facility]) [address] [place], [address], 03/01/2024 08:11:51 02/29/20 24 03/01/2024 CBC WITH DIFFE RENTI AL/PL ATELE T lymphs (absolute) 2.8 x10e3 /uL 0.7-3. 1 normal Not Available [facility] ([facility]) [address] [facility], [place], [address], 03/01/2024 08:11:51 02/29/20 24 03/01/2024 CBC WITH DIFFE RENTI AL/PL ATELE T monocytes(ab solute) 0.7 x10e3 /uL 0.1-0. 9 normal Not Available [facility] ([facility]) [address] [facility], [place], [address], 03/01/2024 08:11:51 02/29/20 24 03/01/2024 CBC WITH DIFFE RENTI AL/PL ATELE T eos (absolute) 0.2 x10e3 /uL 0.0-0. 4 normal Not Available [facility] ([facility]) [address] [facility], [place], [address], 03/01/2024 08:11:51 02/29/20 24 03/01/2024 CBC WITH DIFFE RENTI AL/PL ATELE T baso (absolute) 0.1 x10e3 /uL 0.0-0. 2 normal Not Available [facility] ([facility]) [address] [facility], [place], [address], 03/01/2024 08:11:51 02/29/20 24 03/01/2024 CBC WITH DIFFE RENTI AL/PL ATELE T immature granulocytes 0 % not estab. Not Available [facility] ([facility]) [address] [place], [address], 03/01/2024 08:11:51 02/29/20 24 03/01/2024 CBC WITH DIFFE RENTI AL/PL ATELE T immature grans (abs) 0.0 x10e3 /uL 0.0-0. 1 Not Available [facility] ([facility]) [address] [facility], [place], [address], 03/01/2024 08:11:51 02/29/20 24 03/01/2024 CBC WITH DIFFE RENTI AL/PL ATELE T NRBC [employer]QUOR ESTABLISHMENT MANAGER Not Available [facility] ([facility]) [address], [place], [address], 03/01/2024 08:11:51 02/29/20 24 03/01/2024 CBC WITH DIFFE RENTI AL/PL ATELE T hematology comments: LIQUOR ESTABLISHMENT MANAGER Not Available [facility] ([facility]) [address], [place], [address], 03/01/2024 08:11:51 02/29/20 24 03/01/2024 COMP. METAB OLIC PANEL (14) glucose 96 mg/dL 70-99 normal Not Available [facility] ([facility]) [address] [place], [address], 03/01/2024 08:11:52 02/29/20 24 03/01/2024 COMP. METAB OLIC PANEL (14) BUN 17 mg/dL 8-27 normal Not Available [facility] ([facility]) [address] [place], [address], 03/01/2024 08:11:52 02/29/20 24 03/01/2024 COMP. METAB OLIC PANEL (14) creatinine 1.00 mg/dL 0.76-1 .27 normal Not Available [facility] ([facility]) [address] [place], [address], 03/01/2024 08:11:52 02/29/20 24 03/01/2024 COMP. METAB OLIC PANEL (14) eGFR 84 mL/mi n/1.7 3 >59 normal Not Available [facility] ([facility]) [address] [place], [address], 03/01/2024 08:11:52 02/29/20 24 03/01/2024 COMP. METAB OLIC PANEL (14) BUN/creatini ne ratio 17 10-24 normal Not Available [facility] ([facility]) [address] [place], [address], 03/01/2024 08:11:52 02/29/20 24 03/01/2024 COMP. METAB OLIC PANEL (14) sodium 141 mmol/ L 134-14 4 normal Not Available [facility] ([facility]) [address] [place], [address], 03/01/2024 08:11:52 02/29/20 24 03/01/2024 COMP. METAB OLIC PANEL (14) potassium 4.1 mmol/ L 3.5-5. 2 normal Not Available [facility] ([facility]) [address] [place], [address], 03/01/2024 08:11:52 02/29/20 24 03/01/2024 COMP. METAB OLIC PANEL (14) chloride 100 mmol/ L 96-106 normal Not Available [facility] ([facility]) [address] [place], [address], 03/01/2024 08:11:52 02/29/20 24 03/01/2024 COMP. METAB OLIC PANEL (14) carbon dioxide, total 26 mmol/ L 20-29 normal Not Available [facility] ([facility]) [address] [place], [address], 03/01/2024 08:11:52 02/29/20 24 03/01/2024 COMP. METAB OLIC PANEL (14) calcium 10.1 mg/dL 8.6-10 .2 normal Not Available [facility] ([facility]) [address] [place], [address], 03/01/2024 08:11:52 02/29/20 24 03/01/2024 COMP. METAB OLIC PANEL (14) protein, total 7.7 g/dL 6.0-8. 5 normal Not Available [facility] ([facility]) [address] [place], [address], 03/01/2024 08:11:52 02/29/20 24 03/01/2024 COMP. METAB OLIC PANEL (14) albumin 4.6 g/dL 3.9-4. 9 normal Not Available [facility] ([facility]) [address] [place], [address], 03/01/2024 08:11:52 02/29/20 24 03/01/2024 COMP. METAB OLIC PANEL (14) globulin, total 3.1 g/dL 1.5-4. 5 Not Available [facility] ([facility]) [address] [place], [address], 03/01/2024 08:11:52 02/29/20 24 03/01/2024 COMP. METAB OLIC PANEL (14) bilirubin, total 0.4 mg/dL 0.0-1. 2 normal Not Available [facility] ([facility]) [address] [place], [address], 03/01/2024 08:11:52 02/29/20 24 03/01/2024 COMP. METAB OLIC PANEL (14) alkaline phosphatase 88 IU/L 44-121 normal Not Available [facility] ([facility]) [address] [place], [address], 03/01/2024 08:11:52 02/29/20 24 03/01/2024 COMP. METAB OLIC PANEL (14) AST (SGOT) 23 IU/L 0-40 normal Not Available [facility] ([facility]) [address] [place], [address], 03/01/2024 08:11:52 02/29/20 24 03/01/2024 COMP. METAB OLIC PANEL (14) ALT (SGPT) 25 IU/L 0-44 normal Not Available [facility] ([facility]) [address] [place], [address], 03/01/2024 08:11:52 02/29/20 24 03/01/2024 LIPID PANEL cholesterol, total 179 mg/dL 100-19 9 normal Not Available [facility] ([facility]) [address] [facility], [place], [address], 03/01/2024 08:11:52 02/29/20 24 03/01/2024 LIPID PANEL triglyceride s 84 mg/dL 0-149 normal Not Available [facility] ([facility]) [address] [facility], [place], [address], 03/01/2024 08:11:52 02/29/20 24 03/01/2024 LIPID PANEL HDL cholesterol 68 mg/dL >39 normal Not Available [facility] ([facility]) [address] [facility], [place], [address], 03/01/2024 08:11:52 02/29/20 24 03/01/2024 LIPID PANEL VLDL cholesterol elba 15 mg/dL 5-40 Not Available [facility] ([facility]) [address] [facility], [place], [address], 03/01/2024 08:11:52 02/29/20 24 03/01/2024 LIPID PANEL LDL chol calc ([facility]) 96 mg/dL 0-99 Not Available [facility] ([facility]) [address] [facility], [place], [address], 03/01/2024 08:11:52 02/29/20 24 03/01/2024 LIPID PANEL LDL calc comment: LIQUOR ESTABLISHMENT MANAGER Not Available [facility] ([facility]) [address] [facility], [place], [address], 03/01/2024 08:11:52 02/29/20 24 03/01/2024 HCV ANTIB JJDeedee HOWARDA DE(PC R/GEN O) HCV Ab Non Reacti ve non reacti ve Not Available [facility] ([facility]) [address] [facility], [place], [address], 03/01/2024 08:11:52 02/29/20 24 03/01/2024 HCV ANTIB JJ CASCA DE(PC R/GEN O) interpretati on: Commen t Not infec brooke with HCV unles s early or acute infec tion is suspe cted (whic h may be delay ed in an immun ocomp romis ed indiv idual ), or other evide nce exist s to indic ate HCV infec tion. Not Available [facility] ([facility]) [address] [facility], [place], [address], 03/01/2024 08:11:52 02/29/20 24 03/01/2024 PROST ATE-S [...] the prese nce or absen ce of araseli garza disea se. Not Available [facility] ([facility]) [address] [facility], [place], [address], 03/01/2024 08:11:53 02/29/20 24 03/01/2024 HIV AB/P2 4 AG WITH REFLE X HIV Ab/P24 Ag screen Non Reacti ve non reacti ve HIV Negat eliel HIV-1 /HIV- 2 antib odies and HIV-1 p24 antig en were NOT detec brooke. There is no labor atory evide nce of HIV infec tion. Not Available [facility] ([facility]) [address] [facility], [place], [address], 03/01/2024 08:11:53 08/15/1908/15/2024 CBC WITH DIFFE RENTI AL/PL ATELE T WBC 6.3 x10e3 /uL 3.4-10 .8 normal Not Available [facility] ([facility]) [address] [place], [address], 08/15/2024 05:06:58 08/15/19 25 08/15/2024 CBC WITH DIFFE RENTI AL/PL ATELE T RBC 5.69 x10e6 /uL 4.14-5 .80 normal Not Available [facility] ([facility]) [address] [place], [address], 08/15/2024 05:06:58 08/15/19 25 08/15/2024 CBC WITH DIFFE RENTI AL/PL ATELE T hemoglobin 16.3 g/dL 13.0-1 7.7 normal Not Available [facility] ([facility]) [address] [place], [address], 08/15/2024 05:06:58 08/15/1908/15/2024 CBC WITH DIFFE RENTI AL/PL ATELE T hematocrit 50.3 % 37.5-5 1.0 normal Not Available [facility] ([facility]) [address] [place], [address], 08/15/2024 05:06:58 08/15/19 25 08/15/2024 CBC WITH DIFFE RENTI AL/PL ATELE T MCV 88 fL 79-97 normal Not Available [facility] ([facility]) [address] [place], [address], 08/15/2024 05:06:58 08/15/19 25 08/15/2024 CBC WITH DIFFE RENTI AL/PL ATELE T MCH 28.6 pg 26.6-3 3.0 normal Not Available [facility] ([facility]) [address] [place], [address], 08/15/2024 05:06:58 08/15/19 25 08/15/2024 CBC WITH DIFFE RENTI AL/PL ATELE T MCHC 32.4 g/dL 31.5-3 5.7 normal Not Available [facility] ([facility]) [address] [place], [address], 08/15/2024 05:06:58 08/15/19 25 08/15/2024 CBC WITH DIFFE RENTI AL/PL ATELE T RDW 13.0 % 11.6-1 5.4 Not Available [facility] ([facility]) [address] [place], [address], 08/15/2024 05:06:58 08/15/19 25 08/15/2024 CBC WITH DIFFE RENTI AL/PL ATELE T platelets 209 x10e3 /uL 150-45 0 normal Not Available [facility] ([facility]) [address] [facility], [place], [address], 08/15/2024 05:06:58 08/15/19 25 08/15/2024 CBC WITH DIFFE RENTI AL/PL ATELE T neutrophils 50 % not estab. normal Not Available [facility] ([facility]) [address] [place], [address], 08/15/2024 05:06:58 08/15/19 25 08/15/2024 CBC WITH DIFFE RENTI AL/PL ATELE T lymphs 36 % not estab. normal Not Available [facility] ([facility]) [address] [place], [address], 08/15/2024 05:06:58 08/15/19 25 08/15/2024 CBC WITH DIFFE RENTI AL/PL ATELE T monocytes 10 % not estab. normal Not Available [facility] ([facility]) [address] [place], [address], 08/15/2024 05:06:58 08/15/19 25 08/15/2024 CBC WITH DIFFE RENTI AL/PL ATELE T eos 3 % not estab. normal Not Available [facility] ([facility]) [address] [place], [address], 08/15/2024 05:06:58 08/15/19 25 08/15/2024 CBC WITH DIFFE RENTI AL/PL ATELE T basos 1 % not estab. normal Not Available [facility] ([facility]) [address] [place], [address], 08/15/2024 05:06:58 08/15/19 25 08/15/2024 CBC WITH DIFFE RENTI AL/PL ATELE T immature cells LIQUOR ESTABLISHMENT MANAGER Not Available [facility] ([facility]) [address] [place], [address], 08/15/2024 05:06:58 08/15/19 25 08/15/2024 CBC WITH DIFFE RENTI AL/PL ATELE T neutrophils (absolute) 3.2 x10e3 /uL 1.4-7. 0 normal Not Available [facility] ([facility]) [address] [place], [address], 08/15/2024 05:06:58 08/15/19 25 08/15/2024 CBC WITH DIFFE RENTI AL/PL ATELE T lymphs (absolute) 2.3 x10e3 /uL 0.7-3. 1 normal Not Available [facility] ([facility]) [address] [place], [address], 08/15/2024 05:06:58 08/15/19 25 08/15/2024 CBC WITH DIFFE RENTI AL/PL ATELE T monocytes(ab solute) 0.6 x10e3 /uL 0.1-0. 9 normal Not Available [facility] ([facility]) [address] [place], [address], 08/15/2024 05:06:58 08/15/19 25 08/15/2024 CBC WITH DIFFE RENTI AL/PL ATELE T eos (absolute) 0.2 x10e3 /uL 0.0-0. 4 normal Not Available [facility] ([facility]) [address] [facility], [place], [address], 08/15/2024 05:06:58 08/15/19 25 08/15/2024 CBC WITH DIFFE RENTI AL/PL ATELE T baso (absolute) 0.0 x10e3 /uL 0.0-0. 2 normal Not Available [facility] ([facility]) [address] [facility], [place], [address], 08/15/2024 05:06:58 08/15/19 25 08/15/2024 CBC WITH DIFFE RENTI AL/PL ATELE T immature granulocytes 0 % not estab. Not Available [facility] ([facility]) [address] [facility], [place], [address], 08/15/2024 05:06:58 08/15/19 25 08/15/2024 CBC WITH DIFFE RENTI AL/PL ATELE T immature grans (abs) 0.0 x10e3 /uL 0.0-0. 1 Not Available [facility] ([facility]) [address] [facility], [place], [address], 08/15/2024 05:06:58 08/15/19 25 08/15/2024 CBC WITH DIFFE RENTI AL/PL ATELE T NRBC LIQUOR ESTABLISHMENT MANAGER Not Available [facility] ([facility]) [address] [facility], [place], [address], 08/15/2024 05:06:58 08/15/19 25 08/15/2024 CBC WITH DIFFE RENTI AL/PL ATELE T hematology comments: LIQUOR ESTABLISHMENT MANAGER Not Available [facility] ([facility]) [address] [place], [address], 08/15/2024 05:06:58 08/15/19 25 08/15/2024 COMP. METAB OLIC PANEL (14) glucose 105 mg/dL 70-99 above high normal Not Available [facility] ([facility]) [address] [place], [address], 08/15/2024 05:06:58 08/15/19 25 08/15/2024 COMP. METAB OLIC PANEL (14) BUN 9 mg/dL 8-27 normal Not Available [facility] ([facility]) [address] [place], [address], 08/15/2024 05:06:58 08/15/19 25 08/15/2024 COMP. METAB OLIC PANEL (14) creatinine 0.95 mg/dL 0.76-1 .27 normal Not Available [facility] ([facility]) [address] [place], [address], 08/15/2024 05:06:58 08/15/19 25 08/15/2024 COMP. METAB OLIC PANEL (14) eGFR 89 mL/mi n/1.7 3 >59 normal Not Available [facility] ([facility]) [address] [place], [address], 08/15/2024 05:06:58 08/15/19 25 08/15/2024 COMP. METAB OLIC PANEL (14) BUN/creatini ne ratio 9 10-24 below low normal Not Available [facility] ([facility]) [address] [place], [address], 08/15/2024 05:06:58 08/15/19 25 08/15/2024 COMP. METAB OLIC PANEL (14) sodium 142 mmol/ L 134-14 4 normal Not Available [facility] ([facility]) [address] [place], [address], 08/15/2024 05:06:58 08/15/19 25 08/15/2024 COMP. METAB OLIC PANEL (14) potassium 4.5 mmol/ L 3.5-5. 2 normal Not Available [facility] ([facility]) [address] [place], [address], 08/15/2024 05:06:58 08/15/19 25 08/15/2024 COMP. METAB OLIC PANEL (14) chloride 104 mmol/ L 96-106 normal Not Available [facility] ([facility]) [address] [place], [address], 08/15/2024 05:06:58 08/15/19 25 08/15/2024 COMP. METAB OLIC PANEL (14) carbon dioxide, total 24 mmol/ L 20-29 normal Not Available [facility] ([facility]) [address] [place], [address], 08/15/2024 05:06:58 08/15/19 25 08/15/2024 COMP. METAB OLIC PANEL (14) calcium 9.8 mg/dL 8.6-10 .2 normal Not Available [facility] ([facility]) [address] [place], [address], 08/15/2024 05:06:58 08/15/19 25 08/15/2024 COMP. METAB OLIC PANEL (14) protein, total 6.9 g/dL 6.0-8. 5 normal Not Available [facility] ([facility]) [address] [place], [address], 08/15/2024 05:06:58 08/15/19 25 08/15/2024 COMP. METAB OLIC PANEL (14) albumin 4.1 g/dL 3.9-4. 9 normal Not Available [facility] ([facility]) [address] [place], [address], 08/15/2024 05:06:58 08/15/19 25 08/15/2024 COMP. METAB OLIC PANEL (14) globulin, total 2.8 g/dL 1.5-4. 5 Not Available [facility] ([facility]) [address] [place], [address], 08/15/2024 05:06:58 08/15/19 25 08/15/2024 COMP. METAB OLIC PANEL (14) bilirubin, total 0.5 mg/dL 0.0-1. 2 normal Not Available [facility] ([facility]) [address] [place], [address], 08/15/2024 05:06:58 08/15/19 25 08/15/2024 COMP. METAB OLIC PANEL (14) alkaline phosphatase 89 IU/L 44-121 normal Not Available [facility] ([facility]) [address] [place], [address], 08/15/2024 05:06:58 08/15/19 25 08/15/2024 COMP. METAB OLIC PANEL (14) AST (SGOT) 29 IU/L 0-40 normal Not Available [facility] ([facility]) [address] [place], [address], 08/15/2024 05:06:58 08/15/19 25 08/15/2024 COMP. METAB OLIC PANEL (14) ALT (SGPT) 24 IU/L 0-44 normal Not Available [facility] ([facility]) [address] [place], [address], 08/15/2024 05:06:58 08/15/19 25 08/15/2024 LIPID PANEL cholesterol, total 177 mg/dL 100-19 9 normal Not Available [facility] ([facility]) [address] [place], [address], 08/15/2024 05:06:59 08/15/19 25 08/15/2024 LIPID PANEL triglyceride s 131 mg/dL 0-149 normal Not Available [facility] ([facility]) [address] [place], [address], 08/15/2024 05:06:59 08/15/19 25 08/15/2024 LIPID PANEL HDL cholesterol 53 mg/dL >39 normal Not Available [facility] ([facility]) [address] [facility], [place], [address], 08/15/2024 05:06:59 08/15/19 25 08/15/2024 LIPID PANEL VLDL cholesterol elba 23 mg/dL 5-40 Not Available [facility] ([facility]) [address] [facility], [place], [address], 08/15/2024 05:06:59 08/15/19 25 08/15/2024 LIPID PANEL LDL chol calc ([facility]) 101 mg/dL 0-99 above high normal Not Available [facility] ([facility]) [address] [facility], [place], [address], 08/15/2024 05:06:59 08/15/19 25 08/15/2024 LIPID PANEL LDL calc comment: [employer] Not Available [facility] ([facility]) [address] [facility], [place], [address], 08/15/2024 05:06:59 07/04/19 25 XR, foot, 3 or more view No observ ation record ed. [address], [address], 07/16/2024 10:49:14 07/24/19 25 07/23/2024 XR, lumbo sacra l spine , 2 or 3 view No observ ation record ed. [place] [address], [place], [address], 07/23/2024 15:24:24 07/24/19 25 07/23/2024 XR, hip, unila teral , 2 or 3 view No observ ation record ed. [address], [place], [address], 07/23/2024 15:23:27 Result Notes None recorded. 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 Problem Code: M17.12; Problem Code Type: ICD-10; Not Available [facility] 2 22:40:08 Fibromya lgia 224020301 Active 2018 Problem Code: M79.7; Problem Code Type: ICD-10; Not Available [facility] 2 22:40:08 Pre-surg barry evaluati on Active 2018 Not Available [facility] 2 22:40:09 Influenz a vaccine needed 52226072035 06 Completed 201804/25/2019 Problem Code: Z23; Problem Code Type: ICD-10; Not Available [facility] 2 22:40:09 Finding related to ability to pass urine 503825848 Completed 201807/03/2024 Pippa Pinto NP [address] [place] [address], [address] , [employer] 5 09:54:07 Aftercar e Completed 201811/28/2023 Pippa Pinto NP [address] [place], [address] , [employer] 4 11:53:23 Abnormal finding on evaluati on procedur e 572584570 Completed 201911/28/2023 Pippa Pinto NP [address] [place] [address], [address] , [employer] 4 11:53:21 Finding of body mass index 070946373 Completed 201911/28/2023 Problem Code: Z68.41; Problem Code Type: ICD-10; Pippa Pinto NP [address] [place] [address], [address] , [employer] 11:53:42 Allergic contact dermatit is caused by plant material 78300009237 287188 Completed 201911/28/2023 Problem Code: L23.7; Problem Code Type: ICD-10; Pippa Pinto NP [address] [place] [address], [address] , [employer] 11:53:26 Current drug user 542951714 Completed 201911/28/2023 Problem Code: Z79.899; Problem Code Type: ICD-10; Pippa Pinto NP [address] [place] [address], [address] , [employer] 11:53:35 Contact dermatit is caused by plants 424656765 Completed 201911/28/2023 Problem Code: L25.5; Problem Code Type: ICD-10; Pippa Pinto NP [address] [place] [address], [address] , [employer] 10:49:30 Itching 180653532 Completed 201911/28/2023 Problem Code: L29.9; Problem Code Type: ICD-10; Pippa Pinto NP [address] [place] [address], [address] , [employer] 4 10:49:32 Cervical radiculo ron 82793414 Active 2023 Pippa Pinto NP [address] [place] [address], [address] , [employer] 4 10:49:39 Lumbar spondylo sis 219181055 Active 2023 Pippa Pinto NP [address] [place] [address], [address] , [employer] 4 10:49:59 Degenera tion of cervical interver tebral disc 56943552 Active 2023 Pippa Pinto NP [address] [place] [address], [address] , [employer] 4 10:50:17 Hematoch ezia 292215810 Completed 202307/03/2024 Pippa Pinto NP [address] [place] [address], [address] , [employer] 5 09:54:15 History of bypass of stomach 252490528 Active 2023 Pippa Pinto NP [address] [place] [address], [address] , [employer] 4 12:06:46 Gastroes ophageal reflux disease without esophagi tis 853491035 Active 2023 Pippa Pinto NP [address] [place] [address], [address] , [employer] 4 12:47:55 Major depressi ve disorder 325043416 Active 2023 Pippa Pinto NP [address] [place] [address], [address] , [employer] 4 12:47:58 Benign prostati c hyperpla rina 417264216 Active 2023 Pippa Pinto NP [address] [place] [address], [address] , [employer] 5 09:54:16 Pain in right foot 23582015996 9107 Active 2024 Pippa Pinto NP [address] [place] [address], [address] , [employer] 5 10:03:17 Plantar fasciiti s of right foot 00811211774 765008 Active 2024 Pippa Pinto NP [address] [place] [address], [address] , [employer], [employer]. 10:03:22 Constipa tiasiya 00809746 Active 2024 Pippa Pinto NP [address] [place] [address], [address] , [employer] 13:24:14 Problem Notes None recorded. Procedures Surgical History Date Name Laterality Status Provider Name and Address Organization Details Recorded Time 03/03/20 Total knee arthroplasty completed Not Available [facility] 11/29/2021 22:56:23 01/25/20 cholecystectomy completed Not Available [facility] 11/29/2021 22:56:23 Back Surgery completed [email or web address], [employer]. 11/28/2023 11:49:46 Gastric Bypass completed [facility]. 11/28/2023 11:49:46 Joint Replacement completed [facility]. 11/28/2023 11:49:46 Neurosurgery completed [facility]. 11/28/2023 11:49:46 Vasectomy completed [email or web address], [employer]. 11/28/2023 11:49:46 Gallbladder Surgery completed [facility]. 11/28/2023 11:49:46 Imaging Results None recorded. Procedure [...] active Not Available Not Available Not Avai labbharath Savella 50 mg tablet Take 1 tablet by oral route 2 times per day 2024 active Not Available Not Available Not Avai lable Linzess 72 mcg capsule 2024 active Not Available Not Available Not Martín hdez Vitals Date Recorded Body height Body mass index (BMI) Body weight Heart rate Oxygen saturation Oxygen saturation in Arterial blood by Pulse oximetry Systolic And Diastolic Provider Name and Address Organization Details Last Updated DateTime 5 175.26 cm 42.7 kg/m2 033530. 29 g 92 /min 94 % 94 % 138/84 mm[Hg] [employer] 5 09:48:46 Date Recorded Body height Body mass index (BMI) Body weight Heart rate Oxygen saturation Oxygen saturation in Arterial blood by Pulse oximetry Systolic And Diastolic Provider Name and Address Organization Details Last Updated DateTime 5 175.26 cm 43 kg/m2 636644. 08 g 78 /min 94 % 94 % 138/86 mm[Hg] [facility] 5 13:17:12 Date Recorded Body height Body mass index (BMI) Body weight Heart rate Oxygen saturation Oxygen saturation in Arterial blood by Pulse oximetry Systolic And Diastolic Provider Name and Address Organization Details Last Updated DateTime 4 175.26 cm 41.9 kg/m2 862531. 23 g 82 /min 96 % 96 % 125/86 mm[Hg] [employer] 4 10:43:08 Social History Question Answer Notes LastModified by Organizat ion Details LastModified Time Tobacco Smoking Status Former Smoker SocialHis tordeedeeQuest ion: 'Tobacco/ Alcohol/S upplement s'; SocialHis torHeatherespo nse: 'Former Smoker'; Not Available [facility] 11/29/2021 23:01:15 Do You Have An Advance Directive? Yes [email or web address] Information not available 11/28/2023 Is Your Home Air Conditioned? Yes [email or web address] Information not available 11/28/2023 Do You Wear A Helmet When Biking? No [email or web address] Information not available 11/28/2023 Are You Blind Or Do You Have Difficulty Seeing? No Information not available 11/28/2023 What Is Your Level Of Caffeine Consumption? 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 None [email or web address] Information not available 11/28/2023 In The 14 Days Before Symptom Onset, Have You Had Close Contact With A Laboratory-confir med COVID-19 While That Case Was Ill? No [email or web address] Information not available 11/28/2023 In The 14 Days Before Symptom Onset, Have You Had Close Contact With A Person Who Is Under Investigation For COVID-19 While That Person Was Ill? No Information not available 11/28/2023 Have You Been To An Area Known To Be High Risk For COVID-19? No [email or web address] Information not available 11/28/2023 Are You Deaf Or Do You Have Serious Difficulty Hearing? No Information not available 11/28/2023 What Type Of Diet Are You Following? REGULAR [email or web address] Information not available 11/28/2023 What Is The Highest Grade Or Level Of School You Have Completed Or The Highest Degree You Have Received? [id number] [email or web address] Information not available 11/28/2023 How Many Days Of Moderate To Strenuous Exercise, Like A Brisk Walk, Did You Do In The Last 7 Days? 7 Information not available 11/28/2023 Have There Been Any Changes To Your Family Or Social Situation? No [email or web address] Information no t available 11/28/2023 When Did You Quit Smoking? 16+yearssinc elastcigaret te Information not available 11/28/2023 Are There Any Guns Present In Your Home? No [email or web address] Information not available 11/28/2023 Which Of Your Hands Is Dominant? Right [email or web address] Information not available 11/28/2023 What Is Your Home Situation? Both Parents Information not available 11/28/2023 Do You Have A Medical Power Of Contact Lens Inspector? No [email or web address] Information not available 11/28/2023 What Was The Date Of Your Most Recent Tobacco Screening? 08/13/2024 Information not available 08/13/2024 Do You Have Any Pets? Yes [email or web address] Information not available 11/28/2023 Do You Use Protection During Sex? No [email or web address] Information not available 11/28/2023 What Is Your Relationship Status? [email or web address] Information not available 11/28/2023 Have You Repeated Any Grades? No [email or web address] Information not available 11/28/2023 Do You Use Your Seat Belt Or Car Seat Routinely? Yes Information not available 11/28/2023 Are You Sexually Active? Yes [email or web address] Information not available 11/28/2023 Do You Have Any Siblings? 5 [email or web address] Information not available 11/28/2023 Do You Have Smoke And Carbon Monoxide Detectors In Your Home? Yes [email or web address] Information not available 11/28/2023 At What Age Did You Start Smoking Tobacco? 11 Information not available 11/28/2023 Are You Passively Exposed To Smoke? No [email or web address] Information no t available 11/28/2023 Are There Any Smokers In Your House? No [email or web address] Information not available 11/28/2023 How Much Tobacco Do You Smoke? No [email or web address] Information not available 11/28/2023 Do You Participate In Social Media? Yes [email or web address] Information not available 11/28/2023 What Types Of Sporting Activities Do You Participate In? Walk One Mile A Day In 23 Minutes Information not available 11/28/2023 Do You Use Sunscreen Routinely? No [email or web address] Information not available 11/28/2023 Has Tobacco Cessation Counseling Been Provided? No Information not available 11/28/2023 How Many Years Have You Smoked Tobacco? 27 [email or web address] Information not available 11/28/2023 Have You Recently Traveled Abroad? No [email or web address] Information not available 11/28/2023 Do You Have Difficulty Walking Or Climbing Stairs? No [email or web address] Information not available 11/28/2023 Are You Currently In School? No Information not available 11/28/2023 Do You Have Any Dietary Restrictions? No [email or web address] Information not available 11/28/2023 Sex: Unknown Functional Status Question Answer Note LastModified by Organizat ion Details LastModified Time Do you use any illicit or recreational drugs? No [email or web address] Information not available 11/28/2023 Do you or have you ever used any other forms of tobacco or nicotine? No Information not available 11/28/2023 What is your level of alcohol consumption? None [email or web address] Information not available 11/28/2023 Are you currently employed? No Information not available 11/28/2023 Do you have transportation difficulties? No [email or web address] Information not available 11/28/2023 Do you have difficulty doing errands alone? No [email or web address] Information not available 11/28/2023 Are you able to care for yourself? Yes Information not available 11/28/2023 Do you have difficulty dressing or bathing? No [email or web address] Information not available 11/28/2023 What is your exercise level? Moderate [email or web address] Information not available 11/28/2023 Mental Status Question Answer Note LastModified by Organizat ion Details LastModified Time Do you feel stressed (tense, restless, nervous, or anxious, or unable to sleep at night)? [id number] [email or web address] Information not available 11/28/2023 Do you have difficulty concentrating, remembering or making decisions? No [email or web address] Information no t available 11/28/2023 Are you or have you been involved with bullying? No Information not available 11/28/2023 Family History Relationship Description Onset Age of this Age Resolved Age Notes LastModified by Organization Details LastModified Time Unspecified Relation Family history of Hypertension Relati ve: ''; [email or web address] Not available 11/28/2023 11:49:44 Unspecified Relation Family history of Depression Relati ve: ''; [email or web address] Not available 11/28/2023 11:49:44 Unspecified Relation Family history of malignant neoplasm Relati ve: ''; [email or web address] Not available 11/28/2023 11:49:44 Unspecified Relation Family history of malignant neoplasm Relati ve: ''; Not available 11/28/2023 11:49:44 Unspecified Relation Harmful pattern of use of alcohol [email or web address] Not available 2023 11:49:44 Mother Arthritis Not availab le 11/28/2023 11:49:44 Mother Hypertensive disorder [email or web address] Not available 2023 11:49:44 Sister Malignant neoplasm of lung [email or web address] Not available 2023 11:49:44 Sister Hypertensive disorder [email or web address] Not available 2023 11:49:44 Paternal Grandfather Harmful pattern of use of alcohol [email or web address] Not available 2023 11:49:44 Paternal Grandfather Malignant neoplasm of lung [email or web address] Not available 2023 11:49:44 Father Malignant neoplasm of lung [email or web address] Not available 2023 11:49:44 Notes:*Procedure Description : Documented family medical history in mother*Relative: Mother *Procedure Description: Documented family medical history in sister*Relative: Sister *Procedure Description: Documented family medical history in brother*Relative: Brother Medical History Condition Response Emergency room visit since last appointm ent. N Acid Reflux (GERD) Y High Cholesterol Y Fibromyalgia Y Hospitalizations N Hypertension Y Immunizations Vaccine Type Date Status Note Provider Nam e and Address Organization Details Recorded Time Influenza, split virus, trivalent, PF 4 completed Pippa Pinto, SHARLENE [address] [place], [address], [employer] 02/06/2024 16:27:28 Influenza, MDCK, quadrivalent, preservative 9 completed Not Available [employer] 11/29/2021 23:54:26 COVID-19, mRNA, LNP-S, PF, joshua-sucrose, 30 mcg/0.3 mL 4 completed Florencia mills, [employer] 02/22/2024 12:02:48 RSV, recombinant, protein subunit RSVpreF, adjuvant reconstituted, 0.5 mL, PF 4 completed Florencia mills [employer] 02/22/2024 12:03:37 Influenza, recombinant, quadrivalent, PF 2 completed Pippa Pinto NP [address] [place], [address], [employer] 02/27/2024 10:48:15 Influenza, recombinant, quadrivalent, PF 2 completed Pippa Pinto, LIQUOR ESTABLISHMENT MANAGER [address] [place] [address], [address], [employer] 02/27/2024 10:48:15 zoster recombinant 2 completed Pipap Pinto, LIQUOR ESTABLISHMENT MANAGER [address] [place] [address], [address], [employer] 02/27/2024 10:48:15 zoster recombinant 2 completed Pippa Pinto, LIQUOR ESTABLISHMENT MANAGER [address] [place] [address], [address], [employer] 02/27/2024 10:48:15 COVID-19, mRNA, LNP-S, PF, 100 mcg/0.5mL dose or 50 mcg/0.25mL dose 1 completed Pippa Pinto NP [address] [place] [address], [address], [employer] 02/27/2024 10:48:15 COVID-19, mRNA, LNP-S, PF, 100 mcg/0.5mL dose or 50 mcg/0.25mL dose 1 completed Pippa Pinto LIQUOR ESTABLISHMENT MANAGER [address] [place] [address], [address], [employer] 02/27/2024 10:48:15 COVID-19, mRNA, LNP-S, PF, 30 mcg/0.3 mL dose 1 completed Pippa Pinto LIQUOR ESTABLISHMENT MANAGER [address] [place] [address], [address], [employer] 02/27/2024 10:48:15 Pneumococcal conjugate PCV20, polysaccharide ELD028 conjugate, adjuvant, PF 2 completed Pippa Pinto LIQUOR ESTABLISHMENT MANAGER [address] [place] [address], [address], [employer] 02/27/2024 10:48:15 COVID-19, mRNA, LNP-S, PF, 30 mcg/0.3 mL dose, joshua-sucrose 2 completed Pippa Pinto, LIQUOR ESTABLISHMENT MANAGER [address] [place], [address], [employer] 02/27/2024 10:48:15 COVID-19, mRNA, LNP-S, bivalent, PF, 30 mcg/0.3 mL dose 2 completed Pippa Pinto, LIQUOR ESTABLISHMENT MANAGER [address] [place] [address], [address], [employer] 02/27/2024 10:48:15 RSV, recombinant, protein subunit RSVpreF, adjuvant reconstituted, 0.5 mL, PF 3 completed Pippa Pinto, LIQUOR ESTABLISHMENT MANAGER [address] [place] [address], [address], [employer] 02/27/2024 10:48:15 COVID-19, mRNA, LNP-S, PF, 50 mcg/0.5 mL 3 completed Pippa Pinto, LIQUOR ESTABLISHMENT MANAGER [address] [place] [address], [address], [employer] 02/27/2024 10:48:15 Tdap 2 completed Pippa Pinto, LIQUOR ESTABLISHMENT MANAGER [address] [place] [address], [address], [employer] 02/27/2024 10:48:15 Influenza, split virus, trivalent, PF 8 completed Pippa Pinto, LIQUOR ESTABLISHMENT MANAGER [address] [place] [address], [address], [employer] 02/27/2024 10:48:15 Hep B, adult 9 completed Pippa Pinto, LIQUOR ESTABLISHMENT MANAGER [address] [place] [address], [address], [employer] 02/27/2024 10:48:15 DTaP 8 completed Pippa Pinto, LIQUOR ESTABLISHMENT MANAGER [address] [place] [address], [address], [employer] 02/27/2024 10:48:15 Influenza, split virus, quadrivalent, PF 3 completed Pippa Pinto, LIQUOR ESTABLISHMENT MANAGER [address] [place] [address], [address], [employer] 02/27/2024 10:48:15 Hep A-Hep B 9 completed Pippa Pinto NP [address] [place], [address], [facility] [employer] 02/27/2024 10:48:15 Hep A-Hep B 8 completed Pippa Pinto NP [address] [place], [address], [facility] [employer] 02/27/2024 10:48:15 Past Encounters Encounter ID Performer Location Encounter Start Date Encounter Closed Date Diagnosis/Indication Diagnosis SNOMED-CT Code Diagnosis ICD10 Code Diagnosis Note [id number] Pippa Pinto NP [place] [address] 11/28/2023 10:45:20 11/28/2023 13:08:58 Hematochezia 604084732 K92.1 Degenerati on of cervical intervertebral disc 35186521 M50.30 Hypertensive disorder 38 218510 I10 Mixed hyperlipidemia 267 801047 E78.2 Fibromyalgia 023644437 M 79.7 [id number] Pippa Pinto NP [place] [address] 02/06/2024 08:48:07 02/06/2024 09:48:45 Administration of influenza vaccine 78796625 Z23 [id number] Pippa Pinto NP [place] [address] 0 02/22/2024 08:49:49 02/22/2024 11:25:35 Active or passive immunization 232024031 Z23 [id number] Pippa Pinto NP [place] [address] 0 02/27/2024 10:26:13 02/27/2024 11:30:19 Mixed hyperlipidemia 635134144 E78.2 Hypertensive disorder 38 744071 I10 Screening for malignant neoplasm of prostate 701855059 Z12.5 Hepatitis C screening 41 0653019 Z11.59 HIV screening 391383551 Z11.4 Body mass index 40+ - severely obese 831390036 Z68.41 Adult heal th examination 808789412 Z00.00 Gastroesop hageal reflux disease without esophagitis 925593106 K21.9 [id number] Pippa Pinto NP [place] [address] 07/03/2024 09:30:09 07/03/2024 10:24:07 Pain in right foot 9056206840 17646 M79.671 Plantar fa sciitis of right foot 8586692065 7423609 M72.2 [id number] [place] [address] 08/13/2024 12:55:26 08/13/2024 13:50:49 Constipation 24529899 K59.00 Hypertensive disorder 38 019245 I10 Gastroesop hageal reflux disease without esophagitis 509317888 K21.9 Mixed hyperlipidemia 267 627580 E78.2 Benign pro static hyperplasia 415589798 N40.1 Major depr essive disorder 673493645 F32.9 Health Concerns Section Related Observation LastModified by Organization Detai ls LastModified Time None Recorded Concern Status LastModified by Organization Details LastModified Time None Recorded Advance Directives Directive Y: Payers Insurance Date Sequence Insurance Name Policy Number Policy Zarate Covered Member ID Zarate Member ID Guarantor Name 08/10/2024 1 [place] Gt Grimes [id number] Gt Grimes 08/10/2024 2 FOR LIFE () Gt Grimes [id number] Gt Grimes 08/10/2024 MED[place] [employer] [facility] Gt Grimes [id number] Gt Grimes Notes Date Note Type Note [...] medications as prescribed. Pippa Pinto NP [address] [place], [address], [employer] 02/28/2024 11:19:23 07/03/2024 text/html Patient presents for [...] erythema or warmth. Pippa Pinto NP [address] [place], [address], [employer] 07/09/2024 13:46:56 08/13/2024 text/html Patient presents for follow up on foot pain. States that he sees podiatry at on 09/25.Has been prescribed linzess by gastroenterology, but they did not give him refills. Needs CARLOS. Vernell is working well.Taking medications as prescribed. Pippa Pinto NP [address] [place] [address], [place], [address], [facility] [employer] 08/13/2024 17:05:01
--- OUTSIDE RECORDS SUMMARY | 2024-10-15 14:10 | XMS_ITS | Data Portability ---
Author Organization [facility] Address [address] [place] [address] Care Team Providers Care Cost Estimating Manager Name Role Phone [facility] [place] Primary Care Pro vider Assessment No assessment recorded. Plan of Treatment Reminders Order Date Submit Date Provider Last Modified By Organization Details Last Modified Time Details Appointments None recorded. Lab HbA1c (hemoglobin A1c), blood 2023 [facility] (Lab Registration) , [address] [place], [address], 4 08:31:48 lipid panel, serum 2023 [facility] (Lab Registration) , [address] [place] [address] [place], [address], 4 08:31:52 CMP, serum or plasma 2023 [facility] (Lab Registration) , [address] [place], [address], 4 08:31:50 Referral None recorded. Procedures None recorded. Surgeries None recorded. Imaging electrocard iogram 2023 [facility], [address] [place] [address] [place], [address], 4 14:33:13 US, echocardiog anibal, transthorac ic, complete, w/ color flow 2023 024 [facility], [address], [place], [address], 4 14:03:11 pharmacolog ic nuclear stress test 2023 024 [facility], [address], [place], [address], 4 10:33:26 US, abdominal aorta 2023 024 [facility], [address], [place], [address], 4 11:03:59 Medication Orders nitroglycer in 0.4 mg sublingual tablet 2023 024 [id number], [address] , [place], [place], [id number], 14:19:42 Patient TargetsNo targets recorded. Patient InstructionsNo instructions recorded. Reason for Referral None Reported. Results Created Date Observation Date Name Description Value Unit Range Abnormal Flag Note LastModifiedBy Organization Detail LastModifiedTime 11/22/1911/22/2023 HEMOG LOBIN A1C glycosylated hemoglobin A1C 5.6 % 4.5-6. 2 Not Available [facility] (Lab Registration) [address], [place], [address], 11/22/2023 08:31:48 11/22/1911/22/2023 HEMOG LOBIN A1C estimated average glucose 114 mg/dL 82-131 Not Available [facility] (Lab Registration) [address] [place], [address], 11/22/2023 08:31:48 11/22/1911/22/2023 HEMOG LOBIN A1C note Unles s other zuniga noted testi ng perfo rmed at: [facility] [address] [place] [address] [phone] Alin mazariegos MD CLIA: [id number] Not Available [facility] (Lab Registration) [address] [place], [address], 11/22/2023 08:31:48 11/22/19 24 11/22/2023 COMP METAB OLIC PANEL sodium 141 mmol/ L 136-14 5 Not Available [facility] (Lab Registration) [address] [place], [address], 11/22/2023 08:31:50 11/22/19 24 11/22/2023 COMP METAB OLIC PANEL potassium 4.1 mmol/ L 3.5-5. 1 Not Available [facility] (Lab Registration) [address] [place], [address], 11/22/2023 08:31:50 11/22/19 24 11/22/2023 COMP METAB OLIC PANEL chloride 103 mmol/ L 98-107 Not Available [facility] (Lab Registration) [address] [place], [address], 11/22/2023 08:31:50 11/22/19 24 11/22/2023 COMP METAB OLIC PANEL carbon dioxide 32 mmol/ L 21-32 Not Available [facility] (Lab Registration) [address] [place], [address], 11/22/2023 08:31:50 11/22/19 24 11/22/2023 COMP METAB OLIC PANEL anion gap 6.0 Not Available [facility] (Lab Registration) [address] [place], [address], 11/22/2023 08:31:50 11/22/19 24 11/22/2023 COMP METAB OLIC PANEL glucose 119 mg/dL 70-110 high Not Available [facility] (Lab Registration) [address] [place], [address], 11/22/2023 08:31:50 11/22/19 24 11/22/2023 COMP METAB OLIC PANEL blood urea nitrogen 14 mg/dL 7-18 Not Available [facility] (Lab Registration) [address] [place], [address], 11/22/2023 08:31:50 11/22/19 24 11/22/2023 COMP METAB OLIC PANEL creatinine 1.0 mg/dL 0.8-1. 3 Not Available [facility] (Lab Registration) [address] [place], [address], 11/22/2023 08:31:50 11/22/19 24 11/22/2023 COMP METAB OLIC PANEL BUN/creatini ne ratio 14.0 ratio 9-21 Not Available [facility] (Lab Registration) [address] [place], [address], 11/22/2023 08:31:50 11/22/19 24 11/22/2023 COMP METAB OLIC PANEL estimated glom filtration rate 84 mL/mi n >60- Not Available [facility] (Lab Registration) [address] [place], [address], 11/22/2023 08:31:50 11/22/19 24 11/22/2023 COMP METAB OLIC PANEL total protein 7.5 g/dL 6.4-8. 2 Not Available [facility] (Lab Registration) [address] [place], [address], 11/22/2023 08:31:50 11/22/19 24 11/22/2023 COMP METAB OLIC PANEL albumin 3.5 g/dL 3.4-5. 0 Not Available [facility] (Lab Registration) [address] [place], [address], 11/22/2023 08:31:50 11/22/19 24 11/22/2023 COMP METAB OLIC PANEL calcium 9.4 mg/dL 8.5-10 .1 Not Available [facility] (Lab Registration) [address] [place], [address], 11/22/2023 08:31:50 11/22/19 24 11/22/2023 COMP METAB OLIC PANEL corrected calcium 9.8 mg/dL 8.5-10 .1 Not Available [facility] (Lab Registration) [address] [place], [address], 11/22/2023 08:31:50 11/22/19 24 11/22/2023 COMP METAB OLIC PANEL bilirubin total 0.6 mg/dL 0.4-1. 5 Not Available [facility] (Lab Registration) [address] [place], [address], 11/22/2023 08:31:50 11/22/19 24 11/22/2023 COMP METAB OLIC PANEL AST (SGOT) 16 U/L 15-37 Not Available [facility] (Lab Registration) [address] [place], [address], 11/22/2023 08:31:50 11/22/19 24 11/22/2023 COMP METAB OLIC PANEL ALT (SGPT) 17 U/L 12-78 Not Available [facility] (Lab Registration) [address] [place], [address], 11/22/2023 08:31:50 11/22/19 24 11/22/2023 COMP METAB OLIC PANEL alk phosphatase 80 U/L Not Available [facility] (Lab Registration) [address] [place], [address], 11/22/2023 08:31:50 11/22/19 24 11/22/2023 COMP METAB OLIC PANEL note Unles s other zuniga noted testi ng perfo rmed at: [facility] [address] [facility] [facility] [place] [address] [phone] Alin mazariegos MD CLIA: [id number] Not Available [facility] (Lab Registration) [address] [place], [address], 11/22/2023 08:31:50 11/22/19 24 11/22/2023 LIPID PANEL triglyceride 61 mg/dL 20-200 The [employer]io n[employer] (NCEP ) has set the follo wing guide lines for Fasti ng Trigl yceri hill: LISSET L: <150 mg/dL BORDE RLINE HIGH: 150 - 199 mg/dL HIGH: 200 - 499 mg/dL VERY HIGH: > or =500 mg/dL Not Available [facility] (Lab Registration) [address] [place], [address], 11/22/2023 08:31:52 11/22/19 24 11/22/2023 LIPID PANEL cholesterol 186 mg/dL 0-200 The [employer] n[employer] am (NCEP ) has set the follo wing guide lines for Fasti ng Clover stero l: RADHA ABLE: <200 mg/dL BORDE RLINE HIGH: 200 - 239 mg/dL HIGH: > or =240 mg/dL Not Available [facility] (Lab Registration) [address] [place], [address], 11/22/2023 08:31:52 11/22/1911/22/2023 LIPID PANEL HDL cholesterol 66 mg/dL 60- The [employer]io n[employer] am (NCEP ) has set the follo wing guide lines for Fasti ng HDL Clover stero l: LOW HDL: <40 mg/dL LISSET L: 40 - 60 mg/dL RADHA ABLE: >60 mg/dL Not Available [facility] (Lab Registration) [address] [place], [address], 11/22/2023 08:31:52 11/22/1911/22/2023 LIPID PANEL LDL calculated 108 mg/dL 100- [...] > or = 190 mg/dL Not Available [facility] (Lab Registration) [address] , [place], [address], 11/22/2023 08:31:52 11/22/19 24 11/22/2023 LIPID PANEL chol/HDL ratio 3 ratio -5 Not Available [facility] (Lab Registration) [address] , [place], [address], 11/22/2023 08:31:52 11/22/19 24 11/22/2023 LIPID PANEL note Unles s other zuniga noted testi ng perfo rmed at: [facility] [address] [place] [address] [phone] Alin mazariegos MD CLIA: [id number] Not Available [facility] (Lab Registration) [address] , [place], [address], 11/22/2023 08:31:52 11/20/19 24 11/13/2023 imagi ng/di agnos tic resul t No observ ation record ed. [email or web address] Not Available 2023 12:28:09 11/20/19 24 11/13/2023 elect rocar diogr am No observ ation record ed. [email or web address] Not Available 2023 12:28:56 11/20/19 24 11/20/2023 elect rocar diogr am No observ ation record ed. [address], [place], [address], 11/20/2023 14:33:56 11/20/19 24 11/20/2023 elect rocar diogr am No observ ation record ed. [address], [place], [address], 11/20/2023 14:33:13 11/27/19 24 11/27/2023 US, abdom inal aorta [facility] [address] [place] [address] Phone: Fax: Name: DALE EVANS Exam Date: 11/27/19 : 960 Age 63 years Gender : M Access ion: [id number] Physic sukhdev: STEVO KLEIN Facili ty: [facility] Facili ty HSV: Outpat ient Exam: US [...] Saba 11/27/19 Thank you for referr ing KEO EVANSKATERINE Y to [facility]. Legall y authen ticate d by ROGELIO CARROLL MD 11-26 15:23: 51 CC'ed Logic: Orderi ng Provid er: ROGELIO CARROLL Attend ing Provid er: BESSIE Alcantar Referr ing Provid er: BESSIE Alcantar Admitt ing Provid er: BESSIE Alcantar [facility] [address], [place], [address], 11/28/2023 11:03:59 11/30/19 24 11/27/2023 pharm acolo gic nucle ar stres s test STRESS TEST DALE EVANS [facility] 6 2 DATE [...] hemody namics return ed back to his [facility] [place]. Test was comple brooke. [...] 2023 14:30: 36 DT: 2023 17:01: 56 /[id number] Electr onical ly Signed By: BESSIE Alcantar MD 11-29 09:10: 08 CC'ed Logic: Orderi ng Provid er: BESSIE Alcantar Attend ing Provid er: BESSIE Alcantar Referr ing Provid er: BESSIE Alcantar Admitt ing Provid er: BESSIE Alcnatar [facility] [address] [facility] [address], [place], [address], 11/30/2023 10:33:26 12/18/19 24 12/17/2023 US, echoc ardio gram, trans thora cic, compl ete, w/ color flow [facility] [address] [place] [address] Phone: Fax: Name: DALE EVANS Exam Date: 024 : 960 Age 63 years Gender : M Access ion: [id number] Physic sukhdev: STEVO KLEIN Facili ty: [facility] Facili ty HSV: Outpat ient Exam: [...] Pulmon ic Valve Report for DALE EVANS [id number] on 4 Dictat ed By: STEVO KLEIN Transc ribed By: GABRIELLA STUBBS Transc ribed On: 12:59 PM Electr onical ly signed by: SETVO KLEIN Thank you for referr DALE Del Rosario Y to [facility]. Legall y authen ticate d by BESSIE Alcantar MD 12-17 13:03: 17 CC'ed Logic: Orderi ng Provid er: BESSIE Alcantar CC Provid er: NO FAMILY Attend ing Provid er: BESSIE Alcantar Referr ing Provid er: BESSIE Alcantar Admitt ing Provid er: BESSIE Alcantar [facility] [address], [place], [address], 12/18/2023 14:03:11 Result Notes Documentation Provider Name and Address Organization Details Recorded Time Pharmacologic Nuclear Stress Test : STRESS TEST MICHEL EVANS [facility] 2 DATE OF SERVICE: 11/27/2023 [...] fraction. DICTATED BY: CHERYL BASSETT MD MA/KASSANDRA /[id number] Electronically Signed By: DANYELLE VAZQUEZ MD 2023-11-30 09:10:08 CC'ed Logic: Ordering Provider: DANYELLE VAZQUEZ Attending Provider: DANYELLE VAZQUEZ Referring Provider: DANYELLE VAZQUEZ [facility] 11/30/2023 10:33:26 Medical Equipment None Reported. Allergies [...] blood by Pulse oximetry Heart rate Systolic And Diastolic Provider Name and Address Organization Details Last Updated DateTime 4 466653. 66 g 39.9 kg/m2 175.26 cm 95 % 95 % 86 /min 119/74 mm[Hg] [facility] 4 13:58:28 Date Recorded Body height Body mass index (BMI) Body weight Oxygen saturation Oxygen saturation in Arterial blood by Pulse oximetry Heart rate Systolic And Diastolic Provider Name and Address Organization Details Last Updated DateTime 4 175.26 cm 40.7 kg/m2 305761. 78 g 97 % 97 % 95 /min 105/70 mm[Hg] [facility] & [place] 4 13:43:58 Social History None recorded. Functional Status None recorded. Mental Status None recorded. Family History Nothing Reported. Medical History No medical history recorded. Past Encounters Encounter ID Performer Location Encounter Start Date Encounter Closed Date Diagnosis/Indication Diagnosis SNOMED-CT Code Diagnosis ICD10 Code Diagnosis Note [id number] Cheryl Bassett MD [address] [place] [address] 11/20/2023 13:45:33 11/20/2023 14:27:17 Chest pain 30627944 R07.9 Recurrent episodes of chest pain with a on visit. On medical treatment. We will proceed with a stress test and echocardio gram for evaluation patient has multiple risk factors for coronary artery disease Abdominal aortic aneurysm 913913809 I71.40 history of triple as per the patient no documentat ion available to us. Follow up AAA screening ultrasound for 63-year-ol d ex-smoker. Essential hypertension 97256444 I10 Controlled continue medication s. Dyslipidemia 260183942 E 78.5 On statin follow up fasting lipid profile. Prediabetes 579259184 R7 3.03 History of prediabete s follow up hemoglobin A1c. Ex-smoker 7929101 Z87.89 1 Quit smoking 1998. [id number] Cheryl Bassett MD [address] [place] [address] 12/04/2023 13:28:12 12/04/2023 13:54:31 Chest pain 26135060 R07.9 Status post episodes of chest pain with ER visit. no recurrence . On medical treatment. Came today to follow up on the stress test which was negative for ischemia results were discussed with the patient continue medical treatment. On follow up echocardio gram because of mildly reduced EF on the stress test. Essential hypertension 87171740 I10 Controlled continue medication s. Dyslipidemia 751879436 E 78.5 On statin follow up fasting lipid profile. Prediabetes 540442542 R7 3.03 History of prediabete s follow up hemoglobin A1c. Ex-smoker 5998203 Z87.89 1 Quit smoking 1998. AAA screening ultrasound was negative. Obesity 278865845 E66.9 body mass index 40.7. Recommend weight [...] Guarantor Name 11/20/2023 1 [place]IC[place]: [employer] Michel Evans [id number] Michel Evans 12/04/2023 2 [facility] [place] Michel Evans [id number] Michel Evans 11/20/2023 [place] - [place] A - [facility] (MEDICARE) Michel Evans [id number] Michel Evans 12/28/2023 1 [place] Michel Evans [id number] Michel Evans 01/15/2024 2 FOR LIFE ( - MEDICARE SUPPLEMENT) Michel Evans [id number] Michel Evans Notes Date Note Type Note [...] age undetermined. Abnormal EKG. Cheryl Bassett MD [address] [place] [address], [address] [place] [address] & [place] 11/22/2023 15:27:18 12/04/2023 text/html 63 year old [...] abdominal aortic aneurysm identified. Cheryl Bassett MD [address] [place] [address], [address], [place] - [facility] - [place] & [place] 12/06/2023 08:12:49
--- NOTE | 2024-10-15 14:34 | EXP.PAIN.SOA ---
[facility] Disclaimer: The information contained in this section may have been updated after the patient was seen, as this information can be updated by other users. Medical History High cholesterol High glucose Hypertension Cholecystectomy planned Elbow injury Vasectomy planned Broken back Surgical History Total knee replacement status H/O gastric bypass Family History Sister Cancer Father Cancer Grandfather Cancer Mother Hypertension Other Diabetes Thyroid disorder Social History Smoking Status: Former smoker alcohol intake: never substance use type: denies use current occupational status: other Travel in the last 8 weeks?: None PM Subjective & Objective Subjective Subjective:: Patient is a pleasant 64-year-old male who presents today for follow-up of his lumbar RFA bilaterally L4-L5 and L5-S1 on 09/30/2024. Today he rates his pain a 0 out of 10. He states that he has had at least 75% improvement following this procedure and feels like it is still working well. Patient did state it took about 3 days for it to kick in. He denies any other changes. [facility] His Buck has been reviewed and is appropriate. Review of Systems: General: No recent weight changes, no fever, no sleep disturbances Respiratory: No cough, no shortness of air, no recurring pulmonary infections Cardiovascular/peripheral vascular: No chest pain, no palpitations, no edema, no shortness of breath Gastrointestinal: No new onset incontinence, normal bowel movements reported Genitourinary: No new onset incontinence Musculoskeletal: Low back pain Psychiatric: [Normal mood/affect] Neurological: [Denies weakness in extremities], [denies balance issues] Pain at rest (0-10 scale): 0 Objective Objective:: Physical Exam: General: Alert and oriented x3, no acute distress, pleasant and cooperative Lungs: Respirations even and unlabored, symmetrical chest expansion Eyes: PERRL Musculoskeletal: Flexion and extension of lumbar [spine] within normal limits Neurological: Speech clear, no gross sensory deficit Has patient had previous pain injection?: Yes Percent improvement in pain since last injection: 75% Conservative treatment options previously tried: Home exercise plan Length of treatment: Longer than 12 weeks Meds Home Medications and Allergies Home Medications ?Medication ?Instructions ?Recorded ?Confirmed ?Type aspirin 81 mg tablet,delayed 81 mg PO DAILY 01/07/24 10/09/24 History release (Adult Aspirin Regimen) diclofenac sodium 1 % topical gel 1 ea topical DIRECTED 01/07/24 10/09/24 History Arthritis, fybromyalga finasteride 5 mg tablet 5 mg PO DAILY enlarged prostrate 01/07/24 10/09/24 History mecobalamin (vitamin B12) 1,000 1,000 mcg PO DAILY 01/07/24 10/09/24 History mcg chewable tablet (B12 Active) metoprolol succinate 50 mg 50 mg PO DAILY High Blood Pressure 01/07/24 10/09/24 History tablet,extended release 24 hr milnacipran 50 mg tablet (Savella) 50 mg PO BID Fybromyalgia 01/07/24 10/09/24 History pantoprazole 40 mg tablet,delayed 80 mg PO BID Acid Reflux 01/07/24 10/09/24 History release tamsulosin 0.4 mg capsule 0.8 mg PO BID treat enlarged 01/07/24 10/09/24 History prostrate sucralfate 100 mg/mL oral 10 ml PO DAILY 04/08/24 10/09/24 History suspension psyllium husk 3.4 gram/5.4 gram 1 tbsp PO DAILY 07/08/24 10/09/24 History oral powder (Metamucil) pregabalin 75 mg capsule (Lyrica) 75 mg PO TID #90 caps 07/25/24 10/09/24 Rx linaclotide 145 mcg capsule 145 mcg PO DAILY #90 caps 10/09/24 10/09/24 Rx (Linzess) New Prescriptions to Start Prescriptions: Allergies Allergy/AdvReac Type Severity Reaction Status Date / Time No Known Allergies Allergy Verified 10/09/24 11:27 Assessment and Plan *Assessment and plan (1) Lumbar facet arthropathy: Status: Acute Category: Medical Code(s): M47.816 - Spondylosis without myelopathy or radiculopathy, lumbar region (2) Low back pain: Status: Acute Category: Medical Code(s): M54.50 - Low back pain, unspecified Plan Patient has had significant improvement and does not require any additional injection therapy at this time. Patient will return to clinic in 2 months for reevaluation of symptoms and plan of care. Patient has been instructed to contact the clinic with any concerns before the next appointment. Dr. Villafuerte has reviewed this note and agrees with this plan of care. This note was dictated using voice recognition software and make contain errors or omissions. All injections are used with Lidocaine, Bupivacaine and dexamethasone. Occasionally urine drug screen is needed to verify patient's compliance with our office pain contract. This is ordered based off specific treatments related to chronic pain with the potential to abuse certain medications.
[2024-10-15 15:27] VITALS: BP 120/76; PULSE 90; RESP 18; O2SAT 96; BMI 42.1
== END 2024-10-15 23:59 | disposition home or self-care (01) ==
LOC: SC.PAIN 14:08
PROVIDERS: PCP Nurse Practitioner Family; Visit Provider Nurse Practitioner Family
DX: M47.816 Spondylosis without myelopathy or radiculopathy, lumbar region (principal); Z79.899 Other long term (current) drug therapy
CPT/HCPCS: 99212; G0463